=== PATIENT | female | born 1980 | race Caucasian/White ===

== ENCOUNTER 2022-04-22 14:37 | Inpatient (IN) ==
[~2022-04-22 14:37] MED LIST: DEXAMETHASONE 10 MG/ML VIAL ONE; HYDROmorphone 1 MG/ML SYRINGE ONE; KETAMINE 50 MG/ML Syringe (ANEST) IV ONE; LIDOCAINE HCL/PF 100 MG/5 ML SYRINGE IV ONE; MAGNESIUM SULFATE 2 GM/50 ML BAG IV ONE; ONDANSETRON 4 MG/2 ML VIAL ONE; PROPOFOL 200 MG/20 ML VIAL IV ONE; ROCURONIUM 10 MG/ML ML IV ONE; ROPIVACAINE HCL/PF 30 ML VIAL IJ ONE; SUGAMMADEX SODIUM 200 MG/2 ML VIAL IV ONE; ePHEDrine 50 MG/5 ML SYRINGE (ANEST) IV ONE; fentaNYL 100 MCG/2 ML VIAL IV ONE
[2022-04-22] MEDS ORDERED: IOPAMIDOL 100 ML BOTTLE IV ONE (14:38)
--- NOTE | 2022-04-22 14:49 | Emergency Department Note ---
HPI General Chief complaint: Abdominal Pain Stated complaint: Stomach Issues Time Seen by Provider: 04/22/22 14:47 Source: patient Mode of arrival: ambulatory Limitations: no limitations History of Present Illness HPI Narrative: Narrative: Patient is a 41-year-old female with a history significant for gastric outlet obstruction who presents to the emergency department because she states that she was told to last week by Dr. Mckay. She states that she has had months of nausea, vomiting, and abdominal pain. She states that she has nausea and vomiting with just about anything that she eats, and is not able to keep down a lot of the fluid that she tries to drink. She states that the abdominal pain is in the epigastric region and sometimes radiates to her back. She states that it is sharp in nature. She states that she saw Dr. Mckay last month, and that he had concerns at that time. She states that last week he called her and told her that she should come to the emergency department to be evaluated initially, and then for endoscopy. She endorses some lightheadedness. She denies any other symptoms at this time. Related Data Home Medications Medication Instructions Recorded Confirmed albuterol sulfate 90 mcg/actuation 1 inh inhalation ONCE PRN 05/17/20 04/22/22 aerosol inhaler Shortness Of Breath nicotine 21 mg/24 hr daily 1 patch transdermal Q24H 05/17/20 04/22/22 transdermal patch venlafaxine 150 mg 150 mg PO QPM 05/17/20 04/22/22 capsule,extended release 24 hr ondansetron 4 mg disintegrating 4 mg translingual PRN PRN Nausea 03/19/22 04/22/22 tablet pantoprazole 40 mg tablet,delayed 40 mg PO QAM 03/19/22 04/22/22 release (Protonix) pregabalin 100 mg capsule 300 mg PO QPM 03/19/22 04/22/22 buprenorphine 8 mg-naloxone 2 mg 1 film sublingual TID 04/22/22 04/22/22 sublingual film (Suboxone) Allergies Allergy/AdvReac Type Severity Reaction Status Date / Time azithromycin Allergy Severe Anaphylaxis Verified 04/22/22 14:43 Review of Systems ROS ROS Narrative: Narrative: Constitutional: Denies fever or weakness Eyes: Denies eye pain or vision change ENT ED: Denies throat pain or rhinorrhea Cardiovascular: Denies chest pain, dyspnea on exertion, orthopnea or edema Respiratory: Denies shortness of breath or cough Gastrointestinal: Reports abdominal pain, nausea and vomiting; Denies diarrhea, constipation, hematochezia or melena Musculoskeletal: Denies back pain or myalgia Integumentary: Denies rash or lesions Neurological: Denies headache, weakness, numbness, confusion, abnormal gait or dizziness Endocrine: Denies fatigue or polyuria PFS Narrative Patient History Narrative: Narrative: Medical/Surgical/Family History All Active Problems (Updated 04/25/22 @ 10:23 by Kingsley Farris MD) Nausea & vomiting (Acute) Abdominal pain (Acute) Constipation by delayed colonic transit (Acute) Gastrojejunal loop obstruction (Acute) Iron deficiency anemia (Chronic) Opioid dependence (Chronic) Severe protein-calorie malnutrition (Chronic) GERD (gastroesophageal reflux disease) (Chronic) Endometriosis (Chronic) Closed fracture of cervical spine (Chronic) Chronic post-traumatic stress disorder (PTSD) (Chronic) Pyloric obstruction (Chronic) Left upper quadrant pain (Chronic) Anterior chest wall pain (Chronic) Gastroparesis (Chronic) Arthritis (Chronic) Recurrent major depression (Chronic) Abdominal pain (Chronic) Gastric ulcer (Chronic) Medical History Abdominal pain Anterior chest wall pain Arthritis Chronic post-traumatic stress disorder (PTSD) Closed fracture of cervical spine Endometriosis Gastric ulcer With perforation Gastroparesis GERD (gastroesophageal reflux disease) Iron deficiency anemia Left upper quadrant pain Opioid dependence Pyloric obstruction Recurrent major depression Severe protein-calorie malnutrition Surgical History H/O esophagogastroduodenoscopy (10/30/14) History of (~04/13/00) 10/05/2005 History of esophagogastroduodenoscopy (EGD) (06/12/21) [facility], completely obstructing non-bleeding gastric ulcer, GI unable to advance endoscope past pyloric ulcer. EGD also done 05/29/21 History of exploratory laparotomy (06/13/21) [facility], [place], with bilateral truncal vagotomy, antrectomy and Desean-en-Y retrocolic gastrojejunostomy History of surgery Abdominal wall hernia procedure - multiple, most recent February 2021 History of surgery Closure of perforated gastric ulcer - x2, most recent 02/2021 perforated gastric ulcer with gastric outlet obstruction Family History Father Diabetes mellitus Heart disease Depressive disorder High blood pressure Anxiety disorder Myocardial infarction Mother Diabetes mellitus Heart disease Alcohol abuse Dementia Daughter ADHD (attention deficit hyperactivity disorder) Social History Smoking Status: Current every day smoker Alcohol Intake Frequency: does not drink Substance Use: does not use Exam Narrative Narrative: Narrative: General Limitations: no limitations General appearance: Present alert and in no apparent distress; Absent anxious, appears intoxicated or sleepy Head Head: Present atraumatic and normocephalic Eye Eye: Present EOMI; Absent scleral icterus or nystagmus ENT ENT: Present mucous membranes moist; Absent nasal congestion Neck Neck: Present full ROM; Absent tenderness Chest Chest: Present normal inspection and symmetric chest wall rise; Absent tenderness Respiratory Respiratory: Present normal lung sounds bilaterally; Absent respiratory distress or accessory muscle use Cardiovascular Cardiovascular: Present regular rate, normal rhythm and normal heart sounds Adbominal Abdominal: Present soft, tenderness, guarding and normal bowel sounds; Absent distention, rebound or rigidity Extremities Extremities: Present normal inspection and full ROM Back Back: Present normal inspection and full ROM; Absent tenderness, CVA tenderness (R) or CVA tenderness (L) Neurological Neurological: Present alert and oriented X3 Psychiatric Psychiatric: Present normal affect and normal mood Skin Skin: Present warm (WNL), dry and normal color Course Vital Signs Vital signs: Vital Signs Temperature 98.4 F 04/22/22 14:39 Pulse Rate 97 H 04/22/22 14:39 Respiratory Rate 18 04/22/22 14:39 Blood Pressure 104/75 04/22/22 14:39 Pulse Oximetry (%) 94 04/22/22 14:39 Oxygen Delivery Method Room Air 04/22/22 14:39 Temperature 98.8 F 04/25/22 07:47 Pulse Rate 75 04/25/22 07:47 Respiratory Rate 20 04/25/22 07:47 Blood Pressure 106/69 04/25/22 07:47 Pulse Oximetry (%) 95 04/25/22 08:00 Oxygen Delivery Method Nasal Cannula 04/25/22 08:00 Oxygen Flow Rate (L/min) 2.5 04/25/22 08:00 [facility] Narrative Medical decision making narrative: Narrative: Patient is a 41-year-old female with a history significant for gastric outlet obstruction who presents to the emergency department because she states that she was told to last week by Dr. Mckay. I did call Dr. Mcaky soon after patient's arrival. He stated that he would recommend just basic labs and a CT scan, and that he would admit the patient. He stated that he had been trying to get her to come to the emergency Department for some time, and that he had spoken about surgery that potentially needed to happen, but that she had been resistant to coming to the emergency department or to surgery previously. He stated that she had a surgery previously, and now that there was concern for obstruction in the area of gastric outlet. CT scan and labs are pending. We have spoken to the housekeeping laundry worker, and there is a room available for patient. Lab Data 04/22/22 15:29 Labs: Lab Results 04/22/22 04/22/22 Range/Units 15:29 15:29 WBC 8.0 (4.5-11.0) K/mcL RBC 5.19 (3.59-5.38) M/mcL Hgb 13.1 (11.2-15.7) g/dL Hct 41.4 (34.1-44.9) % MCV 79.8 L (80.0-100.0) fL MCH 25.2 L (26.0-34.0) pg MCHC 31.6 (31.0-36.0) g/dL RDW 17.9 H (11.5-14.5) % Plt Count 368 (140-440) K/mcL MPV 9.2 (8.8-12.5) fL Immature Gran % (Auto) 0.1 (0.0-0.5) % Neut % (Auto) 62.9 (38.0-78.0) % Lymph % (Auto) 29.0 (15.5-49.0) % [place] % (Auto) 6.0 (1.0-12.0) % Eos % (Auto) 1.4 (0.0-7.0) % Baso % (Auto) 0.6 (0.0-2.0) % Lymph # (Auto) 2.32 (1.50-4.80) K/mcL [place] # (Auto) 0.48 (0.10-0.90) K/mcL Eos # (Auto) 0.11 (0.00-0.70) K/mcL Baso # (Auto) 0.05 (0.00-0.30) K/mcL Immature Gran # 0.01 (0.00-0.05) K/mcl Absolute Neutrophils 5.02 (1.80-8.00) K/mcL Total Bilirubin < 0.2 (0.1-1.0) mg/dL Direct Bilirubin < 0.2 (0-0.3) mg/dL AST 16 (<32) U/L ALT 9 (<40) U/L Alkaline Phosphatase 130 H (39-117) U/L Total Protein 5.6 L (5.9-8.4) gm/dL Albumin 3.2 (3.2-5.2) gm/dL Globulin 2.4 (2.2-3.7) gm/dL Lipase 19 (7-60) U/L EKG Data EKG #1: EKG attestation: Yes I reviewed and interpreted this EKG. EKG results narrative: Normal sinus rhythm with a rate of 68, equivocal axis, [place] 127, QRS 108, QTc 426, T wave flattening in lead aVL, and absence of ST elevation or depression. Discharge Plan Patient/Caregiver Discharge Instructions Pt seen by HOSPITAL ACCOUNT LIAISON/PA only: No Clinical Impression: Nausea & vomiting, Abdominal pain Patient Disposition: Xfer As Inpt ([facility]) Discharge Date/Time: 04/22/22 18:25
[2022-04-22 16:08] LABS: Basophils # (Auto) 0.05 K/mcL (0.00-0.30); Basophils % (Auto) 0.6 % (0.0-2.0); Eosinophils # (Auto) 0.11 K/mcL (0.00-0.70); Eosinophils % (Auto) 1.4 % (0.0-7.0); Hematocrit 41.4 % (34.1-44.9); Hemoglobin 13.1 g/dL (11.2-15.7); Lymphocytes # (Auto) 2.32 K/mcL (1.50-4.80); Mean Cell Volume 79.8 fL (80.0-100.0); Mean Corpuscular HGB Conc 31.6 g/dL (31.0-36.0); Mean Platelet Volume 9.2 fL (8.8-12.5); Monocytes # (Auto) 0.48 K/mcL (0.10-0.90); Neutrophils % (Auto) 62.9 % (38.0-78.0); Platelet Count 368 K/mcL (140-440); RBC 5.19 M/mcL (3.59-5.38); Red Cell Distribution Width 17.9 % (11.5-14.5)
[2022-04-22] MEDS ORDERED: METOCLOPRAMIDE 10 MG/2 ML VIAL IV ONE (16:18)
[2022-04-22 16:31] LABS: ALT/SGPT 9 U/L (<40); AST/SGOT 16 U/L (<32); Albumin 3.2 gm/dL (3.2-5.2); Alkaline Phosphatase 130 U/L (39-117); Bilirubin,Direct < 0.2 mg/dL (0-0.3); Bilirubin,Total < 0.2 mg/dL (0.1-1.0); Globulin 2.4 gm/dL (2.2-3.7)
--- NOTE | 2022-04-22 17:31 | Cat Scan Report ---
CLINICAL INFORMATION: History of gastric outlet obstruction. Abdominal pain COMPARISON: Abdomen and pelvic CT 09/28/2014 and 05/12/2019 TECHNIQUE: Following enteric contrast, 80 cc of Isovue-370 were injected intravenously, and 60 seconds later, 0.625 mm helical slices were obtained from the mid heart through the subtrochanteric regions. Following reconstruction, 2.5 mm sagittal, coronal and axial reformatted images were processed and reviewed at bone, lung and soft tissue windows. Five minutes later, 0.625 mm helical slices were obtained from the mid heart through the kidneys and viewed at soft tissue windows.The exam was performed using radiation dose optimization techniques including, but not limited to, automated exposure control, adjustment of the mA and/or kV according to patient size and use of iterative reconstruction technique. FINDINGS: The lung bases show scattered bullae and fibrosis. No infiltrates or nodules.. No effusions. The visualized heart is grossly normal. Abdominal images show mild hepatomegaly with a vertical dimension of the liver 18 cm in midclavicular line. Diffuse fatty change seen within the liver which is also inhomogeneous. No focal hepatic lesions. Gallbladder is surgically absent. The left intrahepatic common hepatic and common bile ducts are moderately dilated CBD is 11 mm. There is abrupt tapering the ampullary region. There is also mild dilatation of pancreatic duct at 3 mm two the level ampulla. Findings suggestive of post cholecystomy papillary stenosis. Both kidneys, adrenal glands, spleen pancreatic parenchyma and aorta including aortic branches are normal in size configuration and attenuation without focal lesion. There is no free air or adenopathy. Pelvic images show urinary bladder is unremarkable. Anteflexed uterus is normal in size 7 x 3 cm. The region of the ovaries are normal. Since the 2019 CT, gastroenterostomy has been performed: A loop of jejunum is anastomosed to the proximal gastric body at the greater curvature with the distal anastomosis in the left upper quadrant. There are surgical clips at the anastomotic site. This segment of jejunum demonstrates moderate wall thickening suggesting inflammation. The stomach, small large bowel are symmetrically dilated with a large amount of colonic stool compatible ileus. Bone windows show nonunified old fractures the posterior right 10th and 11th ribs with mild displacement. IMPRESSION: 1. Gastro enteric bypass. The anastomosed jejunum demonstrates moderate wall thickening and mucosal thickening suggesting inflammation or ischemia. The stomach small and large bowel show symmetric dilatation compatible with moderate ileus. There is moderate colonic stool. No evidence of viv bowel obstruction however. 2. Mild hepatomegaly with inhomogeneous low attenuation suggesting diffuse hepatopathy please correlate with LFTs 3. Moderate dilatation of the common bile and pancreatic duct suggesting post cholecystectomy papillary stenosis no change. 4. COPD changes. 5. Displaced nonunified fractures of the posterior right 10th and 11th ribs ribs. Nondisplaced remote fracture of the right L1 transverse process Interpreted and Authenticated by: Temo Smalls 04/22/22
--- NOTE | 2022-04-22 17:34 | XRay Report ---
CLINICAL INFORMATION: Smoking history. Chest pain COMPARISON: None. TECHNIQUE: Portable FINDINGS: The heart size, mediastinum and pulmonary vessels are unremarkable. The lungs are clear. There are no effusions. Nonunified fracture of the lateral left 10th and 11th ribs appreciated. IMPRESSION: No acute disease. Old left rib fractures Interpreted and Authenticated by: Temo Smalls 04/22/22
--- NOTE | 2022-04-22 17:35 | General Surg History&Physical ---
HPI History of Present Illness Patient information: Note initiated : 04/22/22 at 5:27 pm Service Date, if different from initiated Date: [] Patient: Priscila Forrest a 41 y/o F admitted on for Stomach Issues. Chief Complaint: [] Chief complaint: Recurrent nausea and vomiting; gastric outlet obstruction History of present illness: Ms. Forrest is a 41 year old F with known history of gastric outlet obstruction secondary to chronic recurrent gastric ulcers dating back to 2014. Patient was seen in the office on 23 March 2022 with complaint of recurrent nausea vomiting and weight loss. She gave a history of having a perforated gastric ulcer in February 25. She was operated on at [facility] but did not improve. She was transferred to [facility] due to total pyloric obstruction. On 06/13/2021 patient underwent bilateral truncal vagotomy with antrectomy and Desean-en-Y retrocolic gastrojejunostomy. She states that she did well for about 5 to 6 months but then started having difficulty keeping food down. She had emesis multiple times per day. She lost over 40 pounds. Upper GI showed some filling of the jejunal loop but with minimal filling of the distal bowel as well as delay in emptying of the stomach into the jejunum and duodenum. As she was felt have obstruction of the jejunal loop. CT of the abdomen and pelvis showed a distended stomach filled with food particles. Madelyn santos was felt to need urgent evaluation but refused to be admitted when seen in March. She has not returned to the office since that time. I have called her 3 times to try to get her admitted. She finally decided that she was getting weaker because she could not eat. She is seen in the emergency room and is admitted with plans for upper endoscopy in the morning and probable laparotomy with revision of the gastrojejunal anastomosis on Wednesday. Patient has a history of chronic pain and is on long-term high-dose Suboxone. She has chronic constipation due to slow transit constipation from the Suboxone. She will receive Relistor starting tonight. Review of Systems All systems: reviewed and no additional remarkable complaints except as stated PFSH PFSH All Active Problems Constipation by delayed colonic transit (Acute) Gastrojejunal loop obstruction (Acute) Iron deficiency anemia (Chronic) Opioid dependence (Chronic) Severe protein-calorie malnutrition (Chronic) GERD (gastroesophageal reflux disease) (Chronic) Endometriosis (Chronic) Closed fracture of cervical spine (Chronic) Chronic post-traumatic stress disorder (PTSD) (Chronic) Pyloric obstruction (Chronic) Left upper quadrant pain (Chronic) Anterior chest wall pain (Chronic) Gastroparesis (Chronic) Arthritis (Chronic) Recurrent major depression (Chronic) Abdominal pain (Chronic) Gastric ulcer (Chronic) Medical History Abdominal pain Anterior chest wall pain Arthritis Chronic post-traumatic stress disorder (PTSD) Closed fracture of cervical spine Endometriosis Gastric ulcer With perforation Gastroparesis GERD (gastroesophageal reflux disease) Iron deficiency anemia Left upper quadrant pain Opioid dependence Pyloric obstruction Recurrent major depression Severe protein-calorie malnutrition Surgical History H/O esophagogastroduodenoscopy (10/30/14) History of (~04/13/00) 10/05/2005 History of esophagogastroduodenoscopy (EGD) (06/12/21) [facility], completely obstructing non-bleeding gastric ulcer, GI unable to advance endoscope past pyloric ulcer. EGD also done 05/29/21 History of exploratory laparotomy (06/13/21) Dr. Benson, [place], [place], with bilateral truncal vagotomy, antrectomy and Desean-en-Y retrocolic gastrojejunostomy History of surgery Abdominal wall hernia procedure - multiple, most recent February 2021 History of surgery Closure of perforated gastric ulcer - x2, most recent 02/2021 perforated ga stric ulcer with gastric outlet obstruction Family History Father Diabetes mellitus Heart disease Depressive disorder High blood pressure Anxiety disorder Myocardial infarction Mother Diabetes mellitus Heart disease Alcohol abuse Dementia Daughter ADHD (attention deficit hyperactivity disorder) Social History household members: alone marital status: single education level: college occupational status: employed sexually active: No smoking status: Current every day smoker alcohol intake frequency: does not drink substance use type: does not use dina/judaism: Hindu seatbelt use: always working smoke detector in home: Yes firearms in home: Yes MEDS/ALLERGIES Home Medications and Allergies Home Medications Medication Instructions Recorded Confirmed Type nortriptyline 10 mg capsule 10 mg PO HS 10/30/14 03/23/22 History Compounded Medication PO 05/17/20 03/23/22 History albuterol sulfate 90 mcg/actuation 1 inh inhalation ONCE 05/17/20 03/23/22 History aerosol inhaler dicyclomine 10 mg capsule 10 mg PO BID 05/17/20 03/23/22 History etonogestrel 0.12 mg-ethinyl 1 vag ring vaginal Q4W 05/17/20 03/23/22 History estradiol 0.015 mg/24 hr vaginal ring (EluRyng) furosemide 20 mg tablet 20 mg PO QDAY 05/17/20 03/23/22 History nicotine 21 mg/24 hr daily 1 patch transdermal Q24H 05/17/20 03/23/22 History transdermal patch venlafaxine 150 mg 150 mg PO QAM 05/17/20 03/23/22 History capsule,extended release 24 hr buprenorphine 8 mg-naloxone 2 mg 1 film buccal TID 03/19/22 03/23/22 History sublingual film (Suboxone) celecoxib 100 mg capsule See Rx Instructions PO QDAY 03/19/22 03/23/22 History diclofenac sodium 1 % topical gel 2 g topical QID 03/19/22 03/23/22 History (Arthritis Pain (diclofenac)) enoxaparin 40 mg/0.4 mL 40 mg subcut QDAY 03/19/22 03/23/22 History subcutaneous syringe (Lovenox) ipratropium 0.5 mg-albuterol 3 mg 3 ml inhalation Q6H PRN 03/19/22 03/23/22 History (2.5 mg base)/3 mL nebulization soln lidocaine 5 % topical patch 1 patch topical QDAY 03/19/22 03/23/22 History lorazepam 1 mg tablet 1 mg PO QDAY PRN 03/19/22 03/23/22 History methocarbamol 750 mg tablet 750 mg PO TID PRN 03/19/22 03/23/22 History naloxone 4 mg/actuation nasal spray 4 mg intranasal Q2M PRN 03/19/22 03/23/22 History ondansetron 4 mg disintegrating 4 mg PO Q8H PRN 03/19/22 03/23/22 History tablet pantoprazole 40 mg tablet,delayed 40 mg PO QDAY 03/19/22 03/23/22 History release (Protonix) pregabalin 100 mg capsule 100 mg PO TID 03/19/22 03/23/22 History tizanidine 4 mg tablet 4 mg PO TID PRN 03/19/22 03/23/22 History valacyclovir 1 gram tablet 1,000 mg PO TID 03/19/22 03/23/22 History Allergies Allergy/AdvReac Type Severity Reaction Status Date / Time azithromycin Allergy Severe Anaphylaxis Verified 04/22/22 14:43 Physical Examination Vital Signs Vital signs: Temp Pulse Resp BP Pulse Ox O2 Del Method 98.4 F 97 H 18 104/75 94 Room Air 04/22/22 14:39 04/22/22 14:39 04/22/22 14:39 04/22/22 14:39 04/22/22 14:39 04/22/22 14:39 General physical appearance General physical exam: no distress, no pain, cachectic and chronically ill Eyes Eye exam: PERRL and normal ocular movement ENT ENT exam: normal mucosa Head Head exam IM: Present atraumatic, normal inspection and normocephalic Neck Neck exam: no masses, no bruits, trachea midline, no lymphadenopathy and no venous distension Cardiovascular Cardiovascular exam IM: Present normal rate and rhythm, RRR, +S1 and +S2; Absent gallop or JVD Respiratory Respiratory exam: normal expansion, normal respiratory effort and clear to auscultation Abdomen Abdomen: Present soft, non tender, bowel sounds (Normal active bowel sounds) and distended (Mild gastric distention and left upper quadrant without mass) Hernia: Present incisional (Midline incisional hernia) Integumentary Integumentary: Present no rash, no growths and no abnormal pigmentation Neurologic Neurologic: Present normal coordination and normal sensation Musculoskeletal Musculoskeletal: Present normal gait and normal posture Psychiatric Psychiatric: Present oriented to time, oriented to person, oriented to place, speech is normal and memory intact Results Labs 04/22/22 15:29 Labs: Abnormal lab results 04/22/22 04/22/22 Range/Units 15:29 15:29 MCV 79.8 L (80.0-100.0) fL MCH 25.2 L (26.0-34.0) pg RDW 17.9 H (11.5-14.5) % Alkaline Phosphatase 130 H (39-117) U/L Total Protein 5.6 L (5.9-8.4) gm/dL Diabetes panel 04/22/22 Range/Units 15:29 AST 16 (<32) U/L ALT 9 (<40) U/L Alkaline Phosphatase 130 H (39-117) U/L Total Protein 5.6 L (5.9-8.4) gm/dL Albumin 3.2 (3.2-5.2) gm/dL Calcium panel 04/22/22 Range/Units 15:29 Albumin 3.2 (3.2-5.2) gm/dL Adrenal panel 04/22/22 Range/Units 15:29 Total Bilirubin < 0.2 (0.1-1.0) mg/dL AST 16 (<32) U/L ALT 9 (<40) U/L Alkaline Phosphatase 130 H (39-117) U/L Total Protein 5.6 L (5.9-8.4) gm/dL Albumin 3.2 (3.2-5.2) gm/dL All other labs normal. A/P Assessment and plan (1) Gastrojejunal loop obstruction: Status: Acute (2) Severe protein-calorie malnutrition: Status: Chronic (3) GERD (gastroesophageal reflux disease): Status: Chronic (4) Constipation by delayed colonic transit: Status: Acute (5) Opioid dependence: Status: Chronic (6) Chronic post-traumatic stress disorder (PTSD): Status: Chronic (7) Gastroparesis: Status: Chronic Plan Patient is counseled for upper endoscopy and it will be performed tomorrow. She is also counseled for laparotomy with revision of gastrojejunal anastomosis RelISTOR 12 mg subcu daily x4 days Continue Suboxone at previous doses Patient probably will need PICC line for TPN Time Spent With Patient Time: Total time spent is greater than 50% in coordination of care (as documented) at patient's floor/unit and/or counseling patient:
[2022-04-22] MEDS: HYDROmorphone 0.5 MG/0.5 ML SYRINGE IV PRN ×3 (17:54→23:53)
[2022-04-22] MEDS: METOCLOPRAMIDE 10 MG/2 ML VIAL IV SCH ×2 (18:39→23:55)
[2022-04-22] MEDS: 0.9 % SODIUM CHLORIDE 1,000 ML IV SCH (18:46)
[2022-04-22] MEDS: PANTOPRAZOLE 40 MG VIAL IV SCH (18:47)
[2022-04-22] MEDS: NORTRIPTYLINE 10 MG CAPSULE PO SCH (21:21)
[2022-04-22] MEDS: BUPRENORPHINE/NALOXONE 4MG/1MG ORAL FILM SL SCH (21:23)
[2022-04-22] MEDS: 0.9 % SODIUM CHLORIDE 10 ML SYRINGE IV SCH (21:23)
[2022-04-22] MEDS ORDERED: PREGABALIN 150 MG CAPSULE PO ONE (22:34)
[2022-04-22] MEDS: VENLAFAXINE 150 MG CAP.XL.24H PO SCH (22:36)
[2022-04-22] MEDS: PREGABALIN 150 MG CAPSULE PO SCH (22:36)
[2022-04-22] MEDS: NICOTINE 14 MG PATCH TOPICAL SCH (22:59)
[2022-04-23] MEDS: 0.9 % SODIUM CHLORIDE 1,000 ML IV SCH (02:53)
[2022-04-23] MEDS: HYDROmorphone 0.5 MG/0.5 ML SYRINGE IV PRN ×8 (02:57→22:22)
[2022-04-23] MEDS: 0.9 % SODIUM CHLORIDE 10 ML SYRINGE IV SCH ×3 (05:37→20:50)
[2022-04-23] MEDS: METOCLOPRAMIDE 10 MG/2 ML VIAL IV SCH ×4 (05:37→23:57)
[2022-04-23 06:57] LABS: Basophils # (Auto) 0.04 K/mcL (0.00-0.30); Basophils % (Auto) 0.6 % (0.0-2.0); Eosinophils # (Auto) 0.13 K/mcL (0.00-0.70); Hematocrit 36.1 % (34.1-44.9); Lymphocytes # (Auto) 3.07 K/mcL (1.50-4.80); Lymphocytes % (Auto) 47.9 % (15.5-49.0); Mean Corpuscular HGB Conc 30.5 g/dL (31.0-36.0); Mean Platelet Volume 9.1 fL (8.8-12.5); Monocytes # (Auto) 0.49 K/mcL (0.10-0.90); Monocytes % (Auto) 7.6 % (1.0-12.0); Neutrophils % (Auto) 41.6 % (38.0-78.0); Platelet Count 290 K/mcL (140-440); RBC 4.51 M/mcL (3.59-5.38); Red Cell Distribution Width 17.7 % (11.5-14.5); WBC 6.4 K/mcL (4.5-11.0)
[2022-04-23 07:21] LABS: ALT/SGPT 7 U/L (<40); AST/SGOT 13 U/L (<32); Albumin 2.3 gm/dL (3.2-5.2); Albumin/Globulin Ratio 1.1 (1.0-2.3); Alkaline Phosphatase 98 U/L (39-117); Bilirubin,Direct < 0.2 mg/dL (0-0.3); Bilirubin,Total < 0.2 mg/dL (0.1-1.0); Blood Urea Nitrogen 14 mg/dL (6-20); Calcium 7.4 mg/dL (8.6-10.4); Carbon Dioxide 27 mmol/L (22-30); Chloride 106 mmol/L (96-108); Glomerular Filtration Rate 119; Glucose 64 mg/dL (70-105); Lactate Dehydrogenase 190 U/L (135-225); Phosphorous 3.6 mg/dL (2.5-4.5); Triglycerides 61 mg/dL (<150); Uric Acid 2.9 mg/dL (2.5-8.0)
[2022-04-23] MEDS: PANTOPRAZOLE 40 MG VIAL IV SCH ×2 (07:47→16:51)
[2022-04-23] MEDS: DEXTROSE 5% IN WATER 1,000 ML IV SCH (08:26)
[2022-04-23] MEDS: METHYLNALTREXONE BROMIDE 12 MG/0.6 ML SYRINGE SQ SCH ×2 (08:35→12:09)
[2022-04-23] MEDS: BUPRENORPHINE/NALOXONE 4MG/1MG ORAL FILM SL SCH ×2 (08:35→20:50)
[2022-04-23] MEDS ORDERED: PROPOFOL 200 MG/20 ML VIAL IV ONE (11:23)
[2022-04-23] MEDS ORDERED: LIDOCAINE HCL/PF 100 MG/5 ML SYRINGE IV ONE (11:23)
--- NOTE | 2022-04-23 11:58 | Brief Operative Note ---
Brief Operative Note Date of procedure: 04/23/22 Pre-op diagnosis: RECURRENT NAUSEA AND VOMITING;GASTROJEJUNAL OBSTRUCTION Post-op diagnosis: other (GASTROJEJUNAL OBSTRUCTION) Procedure: UPPER ENDOSCOPY Grafts/Implants: No Anesthesia: MAC Findings: MILD GE REFLUX;INFLAMMATION OF JEJUNAL LIMB WITH DISTAL OBSTRUCTION Complications: none Surgeon: Marleny Mckay Estimated blood loss (cc): 0 Specimens Removed/Pathology: none sent Condition: stable Disposition: same day
[2022-04-23] MEDS: NICOTINE 14 MG PATCH TOPICAL SCH (12:25)
[2022-04-23] MEDS: LORazepam 2 MG/ML VIAL IV PRN ×2 (14:05→22:22)
[2022-04-23] MEDS: CEFEPIME 2 GM VIAL IV SCH ×2 (16:51→23:57)
[2022-04-23] MEDS: VENLAFAXINE 150 MG CAP.XL.24H PO SCH (20:49)
[2022-04-23] MEDS: PREGABALIN 150 MG CAPSULE PO SCH (20:49)
[2022-04-23] MEDS: NORTRIPTYLINE 10 MG CAPSULE PO SCH (20:50)
[2022-04-24] MEDS: HYDROmorphone 0.5 MG/0.5 ML SYRINGE IV PRN ×7 (00:29→15:59)
[2022-04-24] MEDS: METOCLOPRAMIDE 10 MG/2 ML VIAL IV SCH ×4 (05:27→23:26)
[2022-04-24] MEDS: 0.9 % SODIUM CHLORIDE 10 ML SYRINGE IV SCH ×3 (05:31→21:34)
[2022-04-24] MEDS: DEXTROSE 5% IN WATER 1,000 ML IV SCH (05:33)
[2022-04-24] MEDS: CEFEPIME 2 GM VIAL IV SCH ×3 (06:56→23:26)
[2022-04-24] MEDS: PANTOPRAZOLE 40 MG VIAL IV SCH ×2 (06:57→16:39)
[2022-04-24] MEDS: LORazepam 2 MG/ML VIAL IV PRN ×2 (06:57→18:46)
--- NOTE | 2022-04-24 07:33 | EKG ---
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
[2022-04-24] MEDS: BUPRENORPHINE/NALOXONE 4MG/1MG ORAL FILM SL SCH ×2 (08:18→21:19)
[2022-04-24] MEDS: METHYLNALTREXONE BROMIDE 12 MG/0.6 ML SYRINGE SQ SCH (08:42)
[2022-04-24] MEDS ORDERED: PROMETHAZINE 25 MG/ML VIAL IV PRN (13:08)
[2022-04-24] MEDS ORDERED: ONDANSETRON 4 MG/2 ML VIAL IV PRN (13:08)
[2022-04-24] MEDS ORDERED: NALOXONE HCL 0.4 MG/ML VIAL IV PRN (13:08)
[2022-04-24] MEDS ORDERED: METHOCARBAMOL 1,000 MG/10 ML VIAL IV PRN (13:08)
[2022-04-24] MEDS ORDERED: diphenhydrAMINE 50 MG/ML VIAL IV PRN (13:08)
[2022-04-24] MEDS ORDERED: MEPERIDINE 25 MG/ML VIAL IV PRN (13:08)
[2022-04-24] MEDS ORDERED: IPRATROPIUM/ALBUTEROL 3 ML AMPUL.NEB NEB PRN (13:08)
[2022-04-24] MEDS ORDERED: LACTATED RINGERS 250 ML IV PRN (13:08)
[2022-04-24] MEDS ORDERED: HYDROmorphone 0.5 MG/0.5 ML SYRINGE IV PRN (13:08)
[2022-04-24] MEDS ORDERED: fentaNYL 100 MCG/2 ML VIAL IV PRN (13:08)
[2022-04-24] MEDS ORDERED: ACETAMINOPHEN 700 MG/70 ML BAG IV ONE (13:08)
[2022-04-24] MEDS ORDERED: LACTATED RINGERS 1,000 ML IV SCH (13:15)
--- NOTE | 2022-04-24 13:29 | Brief Operative Note ---
Brief Operative Note Date of procedure: 04/24/22 Pre-op diagnosis: gastrojejunal obstruction Post-op diagnosis: other (GASTROJEJUNAL OBSTRUCTION ) Procedure: NAT -EN-Y GASTROJEJUNOSTOMY Grafts/Implants: No Anesthesia: GETA Findings: SEVERE INFLAMMATION AND THICKENING OF JEJUNAL SEGMENT Complications: none Surgeon: Marleny Mckay Estimated blood loss (cc): 50 Specimens Removed/Pathology: other (JEJUNAL SEGMENT) Condition: stable Disposition: PACU
[2022-04-24] MEDS: NICOTINE 14 MG PATCH TOPICAL SCH (15:15)
[2022-04-24] MEDS: HYDROmorphone 1 MG/ML SYRINGE IV PRN ×4 (17:35→23:26)
[2022-04-24] MEDS: NORTRIPTYLINE 10 MG CAPSULE PO SCH (21:19)
[2022-04-24] MEDS: VENLAFAXINE 150 MG CAP.XL.24H PO SCH (21:32)
[2022-04-24] MEDS: PREGABALIN 150 MG CAPSULE PO SCH (21:32)
[2022-04-25] MEDS: PROMETHAZINE 25 MG/ML VIAL IV PRN ×3 (01:41→13:45)
[2022-04-25] MEDS: HYDROmorphone 1 MG/ML SYRINGE IV PRN ×11 (01:41→23:29)
[2022-04-25] MEDS: LORazepam 2 MG/ML VIAL IV PRN ×4 (03:07→22:12)
[2022-04-25] MEDS: DEXTROSE 5% IN WATER 1,000 ML IV SCH ×2 (03:32→22:12)
[2022-04-25] MEDS: 0.9 % SODIUM CHLORIDE 10 ML SYRINGE IV SCH ×3 (04:30→22:13)
[2022-04-25 06:26] LABS: Basophils # (Auto) 0.04 K/mcL (0.00-0.30); Basophils % (Auto) 0.3 % (0.0-2.0); Eosinophils # (Auto) 0.28 K/mcL (0.00-0.70); Eosinophils % (Auto) 2.1 % (0.0-7.0); Hematocrit 40.3 % (34.1-44.9); Hemoglobin 12.5 g/dL (11.2-15.7); Lymphocytes # (Auto) 3.01 K/mcL (1.50-4.80); Lymphocytes % (Auto) 22.2 % (15.5-49.0); Mean Cell Volume 78.9 fL (80.0-100.0); Mean Platelet Volume 9.2 fL (8.8-12.5); Monocytes # (Auto) 0.67 K/mcL (0.10-0.90); Monocytes % (Auto) 4.9 % (1.0-12.0); Neutrophils % (Auto) 70.2 % (38.0-78.0); Platelet Count 316 K/mcL (140-440); RBC 5.11 M/mcL (3.59-5.38); Red Cell Distribution Width 17.7 % (11.5-14.5); WBC 13.5 K/mcL (4.5-11.0)
[2022-04-25] MEDS: METOCLOPRAMIDE 10 MG/2 ML VIAL IV SCH ×3 (06:43→17:22)
[2022-04-25 06:46] LABS: ALT/SGPT 10 U/L (<40); AST/SGOT 19 U/L (<32); Albumin 2.4 gm/dL (3.2-5.2); Albumin/Globulin Ratio 1.2 (1.0-2.3); Alkaline Phosphatase 104 U/L (39-117); Bilirubin,Direct < 0.2 mg/dL (0-0.3); Bilirubin,Total < 0.2 mg/dL (0.1-1.0); Blood Urea Nitrogen 8 mg/dL (6-20); Calcium 8.1 mg/dL (8.6-10.4); Carbon Dioxide 27 mmol/L (22-30); Chloride 102 mmol/L (96-108); Glomerular Filtration Rate 119; Glucose 93 mg/dL (70-105); Lactate Dehydrogenase 257 U/L (135-225); Triglycerides 109 mg/dL (<150); Uric Acid 3.1 mg/dL (2.5-8.0)
[2022-04-25] MEDS: PANTOPRAZOLE 40 MG VIAL IV SCH ×2 (07:40→17:22)
[2022-04-25] MEDS: BUPRENORPHINE/NALOXONE 4MG/1MG ORAL FILM SL SCH ×2 (08:22→22:13)
[2022-04-25] MEDS: CEFEPIME 2 GM VIAL IV SCH ×2 (08:26→15:51)
[2022-04-25] MEDS: METHYLNALTREXONE BROMIDE 12 MG/0.6 ML SYRINGE SQ SCH (09:35)
[2022-04-25] MEDS: NICOTINE 14 MG PATCH TOPICAL SCH (09:36)
--- NOTE | 2022-04-25 13:40 | General Surgery Progress Note ---
SUBJECTIVE Subjective Patient information: Note initiated : 04/25/22 at 1:35 pm Service Date, if different from initiated Date: [] Patient: Priscila Forrest a 41 y/o F admitted on 04/22/22 for Stomach Issues. Chief Complaint: [] Principal diagnosis: Gastric outlet obstruction Interval history: Patient is status post revision of gastrojejunostomy with placement of Desean-en-Y gastrojejunostomy. Her surgery progressed without problems. Patient is doing well except for mild pain. She has a chronic problem with chronic pain syndrome and multiple anxiety issues. White blood count 13.5, hemoglobin 12.5, hematocrit 40.3, potassium BUN and creatinine are normal. Oxygen saturation is 95%. Her urine is clear. Constitutional Vitals: Vital Signs Temp Pulse Resp BP Pulse Ox O2 Del Method O2 Flow Rate 98 F 80 18 109/65 98 Nasal Cannula 2 04/25/22 10:32 04/25/22 10:32 04/25/22 10:32 04/25/22 10:32 04/25/22 10:32 04/25/22 10:32 04/25/22 10:32 Period Temp Pulse Resp BP Sys/Cosme Pulse Ox O2 Del Method O2 Flow Rate Last 24 Hr 97.5 F-98.8 F 72-88 10-20 98-116/55-75 92-99 Nasal Cannula- Simple Mask 2-6 Intake and Output 04/25/22 04/25/22 04/25/22 03:59 11:59 19:59 Intake Total 1050 Output Total 1350 Balance -300 Weight 113 lb 8 oz Intake & Output: Intake & Output 04/25/22 04/25/22 04/25/22 03:59 11:59 19:59 Intake Total 1050 Output Total 1350 Balance -300 Weight 113 lb 8 oz Intake: IV 1000 Dextrose 5% in Water 1,000 ml @ 1000 50 mls/hr IV .Q20H [facility] Rx#: [id number] Oral 50 Output: Gastric Drainage 100 Right Nare NG/OG 100 Urine Catheter Amount 1250 Other: Urine Appearance Clear Uretheral (Marie) Clear Clear Clear Urine Color Yellow Uretheral (Marie) Yellow Yellow Yellow General appearance: mild distress and thin Head Head exam: Present atraumatic, normal inspection and normocephalic Eye Eye exam: Present EOMI and PERRL ENT ENT exam: Present mucous membranes moist and normal oropharynx Neck Neck exam: Present full ROM and normal inspection; Absent tenderness Respiratory Respiratory exam: Present normal respiratory exam; Absent CTAB Cardiovascular Cardiovascular exam: Present normal rate and rhythm, JVD, +S1, +S2 and tachycardia (Average heart rate 115); Absent RRR GI/Abdominal GI/Abdominal exam: Present normal bowel sounds, soft and tenderness (Moderate incisional tenderness) Extremities Exam Extremities exam: Present normal inspection and neurovascular intact Neurological Exam Neurological exam: Present oriented X3 and reflexes normal Psychiatric Psychiatric exam: Present agitated and anxious A/P Assessment and plan (1) Gastrojejunal loop obstruction: Status: Acute (2) Constipation by delayed colonic transit: Status: Acute (3) Nausea & vomiting: Status: Acute (4) Opioid dependence: Status: Chronic (5) Severe protein-calorie malnutrition: Status: Chronic (6) GERD (gastroesophageal reflux disease): Status: Chronic (7) Gastroparesis: Status: Chronic Plan Discontinue Marie catheter Encourage patient to be out of bed 2 view abdominal x-ray in the morning Sepsis Sepsis Identified: No Time Spent With Patient Time: Total time spent is greater than 50% in coordination of care (as documented) at patient's floor/unit and/or counseling patient:
[2022-04-25] MEDS: PREGABALIN 150 MG CAPSULE PO SCH (22:12)
[2022-04-25] MEDS: NORTRIPTYLINE 10 MG CAPSULE PO SCH (22:12)
[2022-04-25] MEDS: VENLAFAXINE 150 MG CAP.XL.24H PO SCH (22:12)
[2022-04-26] MEDS: CEFEPIME 2 GM VIAL IV SCH ×3 (00:40→16:50)
[2022-04-26] MEDS: METOCLOPRAMIDE 10 MG/2 ML VIAL IV SCH ×4 (00:40→17:37)
[2022-04-26] MEDS: HYDROmorphone 1 MG/ML SYRINGE IV PRN ×10 (01:47→21:26)
[2022-04-26] MEDS: LORazepam 2 MG/ML VIAL IV PRN ×4 (05:21→19:14)
[2022-04-26] MEDS: 0.9 % SODIUM CHLORIDE 10 ML SYRINGE IV SCH ×3 (05:22→21:38)
[2022-04-26 06:08] LABS: Basophils # (Auto) 0.04 K/mcL (0.00-0.30); Basophils % (Auto) 0.4 % (0.0-2.0); Eosinophils # (Auto) 0.43 K/mcL (0.00-0.70); Eosinophils % (Auto) 4.8 % (0.0-7.0); Hematocrit 37.4 % (34.1-44.9); Hemoglobin 11.8 g/dL (11.2-15.7); Lymphocytes # (Auto) 2.25 K/mcL (1.50-4.80); Lymphocytes % (Auto) 25.2 % (15.5-49.0); Mean Cell Volume 79.1 fL (80.0-100.0); Mean Corpuscular HGB Conc 31.6 g/dL (31.0-36.0); Mean Platelet Volume 9.3 fL (8.8-12.5); Monocytes # (Auto) 0.51 K/mcL (0.10-0.90); Monocytes % (Auto) 5.7 % (1.0-12.0); Neutrophils % (Auto) 63.7 % (38.0-78.0); Platelet Count 247 K/mcL (140-440); RBC 4.73 M/mcL (3.59-5.38); Red Cell Distribution Width 17.4 % (11.5-14.5); WBC 8.9 K/mcL (4.5-11.0)
[2022-04-26 06:28] LABS: ALT/SGPT 10 U/L (<40); AST/SGOT 15 U/L (<32); Albumin 2.3 gm/dL (3.2-5.2); Albumin/Globulin Ratio 1.1 (1.0-2.3); Alkaline Phosphatase 101 U/L (39-117); Bilirubin,Direct < 0.2 mg/dL (0-0.3); Bilirubin,Total 0.2 mg/dL (0.1-1.0); Blood Urea Nitrogen 11 mg/dL (6-20); Calcium 7.8 mg/dL (8.6-10.4); Carbon Dioxide 27 mmol/L (22-30); Chloride 104 mmol/L (96-108); Globulin 2.1 gm/dL (2.2-3.7); Glomerular Filtration Rate 112; Glucose 86 mg/dL (70-105); Lactate Dehydrogenase 330 U/L (135-225); Phosphorous 3.3 mg/dL (2.5-4.5); Triglycerides 136 mg/dL (<150); Uric Acid 3.8 mg/dL (2.5-8.0)
[2022-04-26] MEDS: PANTOPRAZOLE 40 MG VIAL IV SCH ×2 (07:29→17:37)
[2022-04-26] MEDS: PROMETHAZINE 25 MG/ML VIAL IV PRN (07:36)
[2022-04-26] MEDS: BUPRENORPHINE/NALOXONE 4MG/1MG ORAL FILM SL SCH ×2 (09:29→21:39)
[2022-04-26] MEDS: METHYLNALTREXONE BROMIDE 12 MG/0.6 ML SYRINGE SQ SCH ×2 (10:01→10:12)
[2022-04-26] MEDS: NICOTINE 14 MG PATCH TOPICAL SCH (10:12)
--- NOTE | 2022-04-26 14:15 | General Surgery Progress Note ---
SUBJECTIVE Subjective Patient information: Note initiated : 04/26/22 at 2:11 pm Service Date, if different from initiated Date: [] Patient: Priscila Forrest a 41 y/o F admitted on 04/22/22 for Stomach Issues. Chief Complaint: [] Principal diagnosis: Gastric outlet obstruction Interval history: Patient is doing well except complains of pain so far. She denies nausea. She states that she had flatus. White blood count 8.9, hemoglobin 11.8, hematocrit 37 point, LFTs are normal. Abdominal x-rays shows gas in the mid small bowel with no colon distention or gastric distention Constitutional Vitals: Vital Signs Temp Pulse Resp BP Pulse Ox O2 Del Method O2 Flow Rate 97.9 F 85 16 107/77 94 Room Air 2 04/26/22 11:49 04/26/22 03:51 04/26/22 11:49 04/26/22 11:49 04/26/22 11:49 04/26/22 11:49 04/26/22 08:00 Period Temp Pulse Resp BP Sys/Cosme Pulse Ox O2 Del Method O2 Flow Rate Last 24 Hr 97.5 F-99.5 F 82-90 14-20 92-108/61-77 91-96 Nasal Cannula- Room Air 2-2 Intake and Output 04/26/22 04/26/22 04/26/22 03:59 11:59 19:59 Intake Total 50 1000 Output Total 2700 1 Balance -2650 999 Weight 102 lb 14.4 oz Intake & Output: Intake & Output 04/26/22 04/26/22 04/26/22 03:59 11:59 19:59 Intake Total 50 1000 Output Total 2700 1 Balance -2650 999 Weight 102 lb 14.4 oz Intake: IV 1000 Lactated Ringers 1,000 ml @ 20 1000 mls/hr IV .Q24H [facility] Rx#: [id number] Oral 50 Output: Gastric Drainage 400 Right Nare NG/OG 400 Urine Catheter Amount 2300 Uretheral (Marie) 600 # of times incontinent of urine 1 Other: Urine Appearance Clear Clear Uretheral (Marie) Clear Clear Urine Color Yellow Yellow Uretheral (Marie) Yellow Urine Odor Normal # Voids 1 Head Head exam: Present atraumatic, normal inspection and normocephalic Eye Eye exam: Present PERRL Pupils: Present normal accommodation ENT ENT exam: Present mucous membranes moist and normal oropharynx Neck Neck exam: Present full ROM and normal inspection Respiratory Respiratory exam: Present normal respiratory exam and CTAB Cardiovascular Cardiovascular exam: Present normal rate and rhythm, RRR, +S1 and +S2; Absent JVD GI/Abdominal GI/Abdominal exam: Present soft and diminished bowel sounds; Absent distended Additional comments: Incision looks good Extremities Exam Extremities exam: Present normal inspection and neurovascular intact Neurological Exam Neurological exam: Present oriented X3; Absent motor sensory deficit Psychiatric Psychiatric exam: Present anxious A/P Assessment and plan (1) Gastrojejunal loop obstruction: Status: Acute (2) Constipation by delayed colonic transit: Status: Acute (3) Severe protein-calorie malnutrition: Status: Chronic (4) GERD (gastroesophageal reflux disease): Status: Chronic Plan Clamp nasogastric tube Continue n.p.o. except for ice chips Abdominal x-rays in the a.m. Time Spent With Patient Time: Total time spent is greater than 50% in coordination of care (as documented) at patient's floor/unit and/or counseling patient:
--- NOTE | 2022-04-26 14:19 | XRay Report ---
CLINICAL INFORMATION: Abdominal pain. NG tube placement COMPARISON: None. FINDINGS: NG tip overlies the gastric antrum. The stool gas pattern is nonspecific. It is largely gasless with the exception of loop of sigmoid colon which is normal in caliber. Small amount of free air as developed in the left subdiaphragmatic region. IMPRESSION: Mild free air in the right subdiaphragmatic region suggests GI tract perforation. Interpreted and Authenticated by: Temo Smalls 04/26/22
[2022-04-26] MEDS ORDERED: BENZOCAINE 20% 1 SPRAY EACH TOPICAL ONE (15:35)
[2022-04-26] MEDS: DEXTROSE 5% IN WATER 1,000 ML IV SCH (16:51)
[2022-04-26] MEDS: ONDANSETRON 4 MG/2 ML VIAL IV PRN (17:43)
[2022-04-26] MEDS: PREGABALIN 150 MG CAPSULE PO SCH (21:34)
[2022-04-26] MEDS: VENLAFAXINE 150 MG CAP.XL.24H PO SCH (21:34)
[2022-04-26] MEDS: NORTRIPTYLINE 10 MG CAPSULE PO SCH (21:39)
[2022-04-27] MEDS: LORazepam 2 MG/ML VIAL IV PRN ×5 (00:01→21:02)
[2022-04-27] MEDS: METOCLOPRAMIDE 10 MG/2 ML VIAL IV SCH ×5 (00:02→23:08)
[2022-04-27] MEDS: 0.9 % SODIUM CHLORIDE 10 ML SYRINGE IV SCH ×3 (06:13→21:13)
[2022-04-27 07:21] LABS: Basophils # (Auto) 0.03 K/mcL (0.00-0.30); Basophils % (Auto) 0.4 % (0.0-2.0); Eosinophils # (Auto) 0.52 K/mcL (0.00-0.70); Eosinophils % (Auto) 6.6 % (0.0-7.0); Hematocrit 38.6 % (34.1-44.9); Hemoglobin 11.7 g/dL (11.2-15.7); Lymphocytes # (Auto) 1.22 K/mcL (1.50-4.80); Lymphocytes % (Auto) 15.5 % (15.5-49.0); Mean Cell Volume 79.6 fL (80.0-100.0); Mean Corpuscular HGB Conc 30.3 g/dL (31.0-36.0); Mean Platelet Volume 9.4 fL (8.8-12.5); Monocytes # (Auto) 0.47 K/mcL (0.10-0.90); Neutrophils % (Auto) 71.1 % (38.0-78.0); Platelet Count 220 K/mcL (140-440); RBC 4.85 M/mcL (3.59-5.38); Red Cell Distribution Width 17.7 % (11.5-14.5); WBC 7.9 K/mcL (4.5-11.0)
[2022-04-27] MEDS: CEFEPIME 2 GM VIAL IV SCH ×4 (07:35→23:08)
[2022-04-27] MEDS: PANTOPRAZOLE 40 MG VIAL IV SCH ×2 (07:35→16:35)
[2022-04-27] MEDS: HYDROmorphone 1 MG/ML SYRINGE IV PRN ×9 (07:36→23:08)
--- NOTE | 2022-04-27 08:25 | XRay Report ---
HISTORY: Follow-up free intra-abdominal air after a recent gastrojejunostomy FINDINGS: The free intra-abdominal air seen beneath the right diaphragm has nearly completely resolved since 04/26/22. There is nasogastric tube in the stomach. The stomach contains some air and fluid and is not abnormally distended. There is a row of anastomotic sutures around the stomach. There are also anastomotic sutures in the left mid abdomen at the site of the gastrojejunostomy. Small bowel is nondilated. There is a small amount of air within both large and small intestine. There is no evidence of ileus or obstruction. Again noted are several rib fractures in the left mid and lower thorax. These were seen on prior CT and x-rays. IMPRESSION: Resolving free intra-abdominal air. No evidence of bowel obstruction or ileus Interpreted and Authenticated by: Pato Hinson 04/27/22
[2022-04-27] MEDS: BUPRENORPHINE/NALOXONE 4MG/1MG ORAL FILM SL SCH ×2 (08:40→21:13)
[2022-04-27 08:55] LABS: ALT/SGPT 7 U/L (<40); AST/SGOT 13 U/L (<32); Albumin 2.3 gm/dL (3.2-5.2); Alkaline Phosphatase 103 U/L (39-117); Bilirubin,Direct < 0.2 mg/dL (0-0.3); Bilirubin,Total 0.2 mg/dL (0.1-1.0); Blood Urea Nitrogen 12 mg/dL (6-20); Calcium 8.1 mg/dL (8.6-10.4); Carbon Dioxide 25 mmol/L (22-30); Chloride 102 mmol/L (96-108); Globulin 2.3 gm/dL (2.2-3.7); Glomerular Filtration Rate 119; Glucose 72 mg/dL (70-105); Lactate Dehydrogenase 262 U/L (135-225); Phosphorous 3.6 mg/dL (2.5-4.5); Triglycerides 152 mg/dL (<150); Uric Acid 4.3 mg/dL (2.5-8.0)
[2022-04-27] MEDS: NICOTINE 14 MG PATCH TOPICAL SCH (09:41)
[2022-04-27] MEDS: DEXTROSE 5% IN WATER 1,000 ML IV SCH (12:37)
--- NOTE | 2022-04-27 13:43 | General Surgery Progress Note ---
SUBJECTIVE Subjective Patient information: Note initiated : 04/27/22 at 1:36 pm Service Date, if different from initiated Date: [] Patient: Priscila Forrest a 41 y/o F admitted on 04/22/22 for Stomach Issues. Chief Complaint: [] Principal diagnosis: Gastric outlet obstruction Interval history: Patient states that she feels well. She had discontinuation of her nasogastric tube and has tolerated clear liquids. She complains of severe thirst and has an estimated 800 cc of p.o. intake so far. She is advised not to increase her intake so rapidly because of fear of nausea or vomiting. I will increase her volume tomorrow with clear liquids before advancing to full liquids. The plan is to advance her diet slowly. She can have intake of water, popsicles and ice. Abdominal x-rays shows decrease in free air and no major dilation of stomach small bowel or colon. White blood count 7.9, hemoglobin 11.7, hematocrit 38.6. Constitutional Vitals: Vital Signs Temp Pulse Resp BP Pulse Ox O2 Del Method O2 Flow Rate 98.4 F 97 H 16 103/65 95 Room Air 2 04/27/22 12:03 04/27/22 12:03 04/27/22 12:03 04/27/22 12:03 04/27/22 12:03 04/27/22 12:03 04/26/22 08:00 Period Temp Pulse Resp BP Sys/Cosme Pulse Ox O2 Del Method O2 Flow Rate Last 24 Hr 97.5 F-98.6 F 84-97 16-20 103-118/65-90 91-96 Room Air-Room Air Intake and Output 04/27/22 04/27/22 04/27/22 03:59 11:59 19:59 Intake Total 290 1828 Output Total 600 Balance -814 407 1151 Intake & Output: Intake & Output 04/27/22 04/27/22 04/27/22 03:59 11:59 19:59 Intake Total 290 1828 Output Total 600 Balance -384 685 6355 Intake: IV 988 Dextrose 5% in Water 1,000 ml @ 988 50 mls/hr IV .Q20H [facility] Rx#: [id number] Oral 290 840 Tube Feeding 0 Output: Void Amount 600 Other: Meal jello, broth, soda Percent of Meal Consumed 100% Feeding Ability Assist with Tray Set Up Urine Appearance Clear Urine Color Yellow Urine Odor Normal # Voids 1 Neck Neck exam: Present normal inspection Respiratory Respiratory exam: Present normal respiratory exam and CTAB Cardiovascular Cardiovascular exam: Present normal rate and rhythm, RRR, +S1 and +S2 GI/Abdominal GI/Abdominal exam: Present normal bowel sounds and soft; Absent distended or tenderness Additional comments: Incision looks good Extremities Exam Extremities exam: Present normal inspection and neurovascular intact Back Exam Back exam: Present normal inspection Neurological Exam Neurological exam: Present oriented X3; Absent motor sensory deficit Psychiatric Psychiatric exam: Present anxious A/P Assessment and plan (1) Gastrojejunal loop obstruction: Status: Acute (2) Iron deficiency anemia: Status: Chronic (3) GERD (gastroesophageal reflux disease): Status: Chronic Plan KCl rider x2 Advance diet slowly Continue to monitor abdominal x-rays Time Spent With Patient Time: Total time spent is greater than 50% in coordination of care (as documented) at patient's floor/unit and/or counseling patient:
[2022-04-27] MEDS: VENLAFAXINE 150 MG CAP.XL.24H PO SCH (21:02)
[2022-04-27] MEDS: PREGABALIN 150 MG CAPSULE PO SCH (21:02)
[2022-04-27] MEDS: NORTRIPTYLINE 10 MG CAPSULE PO SCH (21:13)
[2022-04-28] MEDS: HYDROmorphone 1 MG/ML SYRINGE IV PRN ×11 (01:10→22:44)
[2022-04-28] MEDS: LORazepam 2 MG/ML VIAL IV PRN ×6 (01:15→22:44)
[2022-04-28] MEDS: 0.9 % SODIUM CHLORIDE 10 ML SYRINGE IV SCH ×3 (04:22→20:34)
[2022-04-28] MEDS: METOCLOPRAMIDE 10 MG/2 ML VIAL IV SCH ×2 (05:16→11:30)
[2022-04-28 07:19] LABS: Basophils # (Auto) 0.04 K/mcL (0.00-0.30); Basophils % (Auto) 0.5 % (0.0-2.0); Eosinophils % (Auto) 6.6 % (0.0-7.0); Hematocrit 37.6 % (34.1-44.9); Hemoglobin 11.4 g/dL (11.2-15.7); Lymphocytes # (Auto) 1.81 K/mcL (1.50-4.80); Mean Cell Volume 82.1 fL (80.0-100.0); Mean Corpuscular HGB Conc 30.3 g/dL (31.0-36.0); Mean Platelet Volume 9.4 fL (8.8-12.5); Monocytes # (Auto) 0.43 K/mcL (0.10-0.90); Monocytes % (Auto) 5.7 % (1.0-12.0); Neutrophils % (Auto) 62.8 % (38.0-78.0); Platelet Count 191 K/mcL (140-440); RBC 4.58 M/mcL (3.59-5.38); Red Cell Distribution Width 17.9 % (11.5-14.5); WBC 7.5 K/mcL (4.5-11.0)
[2022-04-28] MEDS: PANTOPRAZOLE 40 MG VIAL IV SCH ×2 (07:23→16:02)
[2022-04-28 07:57] LABS: ALT/SGPT 8 U/L (<40); AST/SGOT 16 U/L (<32); Albumin 2.1 gm/dL (3.2-5.2); Alkaline Phosphatase 98 U/L (39-117); Bilirubin,Direct < 0.2 mg/dL (0-0.3); Bilirubin,Total < 0.2 mg/dL (0.1-1.0); Blood Urea Nitrogen 6 mg/dL (6-20); Calcium 7.5 mg/dL (8.6-10.4); Carbon Dioxide 23 mmol/L (22-30); Chloride 106 mmol/L (96-108); Globulin 2.1 gm/dL (2.2-3.7); Glomerular Filtration Rate 128; Glucose 67 mg/dL (70-105); Lactate Dehydrogenase 256 U/L (135-225); Phosphorous 2.8 mg/dL (2.5-4.5); Triglycerides 151 mg/dL (<150); Uric Acid 4.1 mg/dL (2.5-8.0)
[2022-04-28] MEDS: BUPRENORPHINE/NALOXONE 4MG/1MG ORAL FILM SL SCH ×2 (08:36→20:47)
[2022-04-28] MEDS: DEXTROSE 5% IN WATER 1,000 ML IV SCH (09:16)
[2022-04-28] MEDS: CEFEPIME 2 GM VIAL IV SCH ×2 (09:16→16:02)
[2022-04-28] MEDS: NICOTINE 14 MG PATCH TOPICAL SCH (09:22)
--- NOTE | 2022-04-28 10:47 | XRay Report ---
HISTORY: Postop gastrojejunostomy FINDINGS: Trace amount of free intra-abdominal air is again seen beneath both diaphragms. This continues to gradually improve. There is a focally dilated loop of small bowel beneath the diaphragm in the left upper quadrant. Measures 4.8 cm in diameter. It contains air-fluid levels. There is an air-filled segment of nondilated transverse colon in the mid abdomen. The stomach is decompressed. Previously seen NG tube has been removed. 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 There is a vertically oriented band of atelectasis in the medial basal segment of the left lower lobe. This is new since 04/27/22. IMPRESSION: Focal ileus in the left upper quadrant Gradually resolving free intra-abdominal air Interpreted and Authenticated by: Pato Hinson 04/28/22
--- NOTE | 2022-04-28 16:15 | General Surgery Progress Note ---
SUBJECTIVE Subjective Patient information: Note initiated : 04/28/22 at 4:11 pm Service Date, if different from initiated Date: [] Patient: Priscila Forrest a 41 y/o F admitted on 04/22/22 for Stomach Issues. Chief Complaint: [] Principal diagnosis: Gastric outlet obstruction Interval history: Patient continues to do well. She has tolerated clear liquids and has had 2 pills of full liquids without difficulty. She is having some early short breath symptoms with bowel movements occurring about 30 minutes after meals. She denies having any nausea. She has had multiple bowel movements today. She has mild abdominal distention but has good bowel sounds. Abdominal x-ray shows loop of dilated small bowel in the left upper quadrant which is probably proximal jejunum. There is another loop of bowel abdomen which appears to be distal to the Desean-en-Y limb. Constitutional Vitals: Vital Signs Temp Pulse Resp BP Pulse Ox O2 Del Method O2 Flow Rate 98.8 F 89 14 119/73 95 Room Air 2 04/28/22 11:33 04/28/22 11:33 04/28/22 11:33 04/28/22 11:33 04/28/22 11:33 04/28/22 11:33 04/26/22 08:00 Period Temp Pulse Resp BP Sys/Cosme Pulse Ox O2 Del Method O2 Flow Rate Last 24 Hr 98.1 F-98.8 F 82-95 14-18 108-121/67-81 92-99 Room Air-Room Air Intake and Output 04/28/22 04/28/22 04/28/22 03:59 11:59 19:59 Intake Total 480 240 Balance 480 240 Weight 105 lb 3.2 oz Patient Weight 04/29/22 03:59 Weight 105 lb 3.2 oz Intake & Output: Intake & Output 04/28/22 04/28/22 04/28/22 03:59 11:59 19:59 Intake Total 480 240 Balance 480 240 Weight 105 lb 3.2 oz Intake: Oral 480 240 Other: Meal Lunch Percent of Meal Consumed 75% Feeding Ability Independent # Voids 1 1 Respiratory Respiratory exam: Present CTAB Cardiovascular Cardiovascular exam: Present normal rate and rhythm, RRR, +S1 and +S2; Absent JVD GI/Abdominal GI/Abdominal exam: Present normal bowel sounds and distended; Absent tenderness Extremities Exam Extremities exam: Present normal inspection and neurovascular intact Neurological Exam Neurological exam: Present motor sensory deficit and oriented X3 Psychiatric Psychiatric exam: Present normal affect and normal mood A/P Assessment and plan (1) Gastrojejunal loop obstruction: Status: Acute (2) Constipation by delayed colonic transit: Status: Acute (3) Severe protein-calorie malnutrition: Status: Chronic Plan K rider 40 mEq x 2 Magnesium rider 4 g x 2 Saline lock IV Discontinue metoclopramide Check abdominal series tomorrow morning Sepsis Sepsis Identified: No Time Spent With Patient Time: Total time spent is greater than 50% in coordination of care (as documented) at patient's floor/unit and/or counseling patient:
[2022-04-28] MEDS ORDERED: POTASSIUM CHLORIDE 40 MEQ in DEXTROSE 5% IN WATER 250 ML IV SCH (17:00)
[2022-04-28] MEDS: MAGNESIUM SULFATE 4 GM/100 ML BAG IV SCH ×2 (17:22→22:14)
[2022-04-28] MEDS: POTASSIUM CHLORIDE 40 MEQ in DEXTROSE 5% IN WATER 500 ML IV SCH ×2 (17:22→22:14)
[2022-04-28] MEDS: ONDANSETRON 4 MG/2 ML VIAL IV PRN (18:48)
[2022-04-28] MEDS: VENLAFAXINE 150 MG CAP.XL.24H PO SCH (20:41)
[2022-04-28] MEDS: PREGABALIN 150 MG CAPSULE PO SCH (20:46)
[2022-04-28] MEDS: NORTRIPTYLINE 10 MG CAPSULE PO SCH (23:20)
[2022-04-29] MEDS: CEFEPIME 2 GM VIAL IV SCH ×3 (00:41→16:19)
[2022-04-29] MEDS: HYDROmorphone 1 MG/ML SYRINGE IV PRN ×6 (00:41→21:49)
[2022-04-29] MEDS: LORazepam 2 MG/ML VIAL IV PRN ×5 (02:42→21:50)
[2022-04-29] MEDS: DEXTROSE 5% IN WATER 1,000 ML IV SCH (03:27)
[2022-04-29] MEDS: 0.9 % SODIUM CHLORIDE 10 ML SYRINGE IV SCH ×3 (05:12→20:27)
[2022-04-29] MEDS: PANTOPRAZOLE 40 MG VIAL IV SCH ×2 (07:16→16:19)
[2022-04-29 07:49] LABS: ALT/SGPT 11 U/L (<40); AST/SGOT 22 U/L (<32); Albumin 2.6 gm/dL (3.2-5.2); Albumin/Globulin Ratio 1.1 (1.0-2.3); Alkaline Phosphatase 111 U/L (39-117); Bilirubin,Direct < 0.2 mg/dL (0-0.3); Bilirubin,Total < 0.2 mg/dL (0.1-1.0); Blood Urea Nitrogen 4 mg/dL (6-20); Calcium 7.2 mg/dL (8.6-10.4); Carbon Dioxide 19 mmol/L (22-30); Chloride 104 mmol/L (96-108); Globulin 2.4 gm/dL (2.2-3.7); Glomerular Filtration Rate 128; Glucose 77 mg/dL (70-105); Lactate Dehydrogenase 290 U/L (135-225); Phosphorous 2.1 mg/dL (2.5-4.5); Triglycerides 103 mg/dL (<150); Uric Acid 3.7 mg/dL (2.5-8.0)
--- NOTE | 2022-04-29 08:27 | XRay Report ---
HISTORY: Postoperative ileus FINDINGS: There is a very small crescent of free intra-abdominal air beneath the left diaphragm. The free air beneath the right diaphragm has now resolved. The loop of dilated small intestine in the left upper quadrant has diminished in caliber since yesterday. Bowel pattern is otherwise normal. There are several rows of surgical sutures in the left left side of the abdomen, extending from the epigastrium to the mid pelvis. There are surgical skin sammy in the midline. Incidentally noted are several old ununited rib fractures in the lower thorax bilaterally. IMPRESSION: Near complete resolution of the postoperative ileus and free intra-abdominal air Interpreted and Authenticated by: Pato Hinson 04/29/22
[2022-04-29] MEDS: oxyCODONE/APAP 10/325MG TABLET PO PRN ×4 (08:34→20:28)
[2022-04-29] MEDS: NICOTINE 14 MG PATCH TOPICAL SCH (10:25)
[2022-04-29] MEDS: BUPRENORPHINE/NALOXONE 4MG/1MG ORAL FILM SL SCH ×2 (10:30→20:27)
--- NOTE | 2022-04-29 14:17 | General Surgery Progress Note ---
SUBJECTIVE Subjective Patient information: Note initiated : 04/29/22 at 2:15 pm Service Date, if different from initiated Date: [] Patient: Priscila Forrest 41 y/o F admitted on 04/22/22 for Stomach Issues. Chief Complaint: [] Principal diagnosis: Gastric outlet obstruction Interval history: Patient is doing well. She tolerated a soft diet last evening. Abdominal x- rays continue to be stable. She has low potassium and phosphorus so this will be replaced. Small bowel follow-through will be done to assure stability of the anastomosis Constitutional Vitals: Vital Signs Temp Pulse Resp BP Pulse Ox O2 Del Method O2 Flow Rate 97.7 F 76 20 108/72 100 Room Air 2 04/29/22 12:00 04/29/22 12:00 04/29/22 12:00 04/29/22 12:00 04/29/22 12:00 04/29/22 12:00 04/26/22 08:00 Period Temp Pulse Resp BP Sys/Cosme Pulse Ox O2 Del Method O2 Flow Rate Last 24 Hr 97.7 F-98.7 F 76-93 16-22 103-118/67-75 96-100 Room Air-Room Air Intake and Output 04/29/22 04/29/22 04/29/22 03:59 11:59 19:59 Intake Total 1640 900 Balance 1640 900 Weight 100 lb 12.8 oz Intake & Output: Intake & Output 04/29/22 04/29/22 04/29/22 03:59 11:59 19:59 Intake Total 1640 900 Balance 1640 900 Weight 100 lb 12.8 oz Intake: IV 1240 Potassium Chloride 40 Meq In 1040 Dextrose 5% in Water 500 ml @ 130 mls/hr IV 1700,2100 [facility] Rx# :[id number] Oral 400 900 Other: Meal Breakfast Percent of Meal Consumed 100% Feeding Ability Assist with Tray Set Up Stool Size Small Stool Color Brown Stool Consistency Loose # Voids 1 1 Neck Neck exam: Present normal inspection Respiratory Respiratory exam: Present normal respiratory exam and CTAB Cardiovascular Cardiovascular exam: Present normal rate and rhythm, RRR, +S1 and +S2; Absent systolic murmur GI/Abdominal GI/Abdominal exam: Present normal bowel sounds and soft; Absent distended, mass or tenderness Extremities Exam Extremities exam: Present normal inspection and neurovascular intact Neurological Exam Neurological exam: Present oriented X3; Absent motor sensory deficit Psychiatric Psychiatric exam: Present anxious A/P Assessment and plan (1) Constipation by delayed colonic transit: Status: Acute (2) Gastrojejunal loop obstruction: Status: Acute (3) Iron deficiency anemia: Status: Chronic (4) Opioid dependence: Status: Chronic (5) Severe protein-calorie malnutrition: Status: Chronic (6) GERD (gastroesophageal reflux disease): Status: Chronic Plan Potassium phosphate rider x2 Small bowel follow-through today Probable discharge in the morning Time Spent With Patient Time: Total time spent is greater than 50% in coordination of care (as documented) at patient's floor/unit and/or counseling patient:
[2022-04-29] MEDS: POTASSIUM PHOSPHATE 40 MEQ in DEXTROSE 5% IN WATER 500 ML IV SCH (15:31)
--- NOTE | 2022-04-29 16:39 | Operative Note ---
DATE OF OPERATION: 04/24/2022 PREOPERATIVE DIAGNOSIS: Gastrojejunal obstruction. POSTOPERATIVE DIAGNOSIS: Gastrojejunal obstruction. PROCEDURE: Resection of gastrojejunal anastomosis with formation of Desean-en-Y gastrojejunostomy. SURGEON: Marleny Mckay M.D. FINDINGS: Severe inflammation and thickening of the jejunal segment. DESCRIPTION OF PROCEDURE: Under general anesthesia, the patient's abdomen was prepped and draped in a sterile field. Timeout procedure was carried out as per protocol. Upper midline incision was made. There was a moderate amount of inflammatory adhesions, which were taken down sharply with Metzenbaum scissors. The peritoneal cavity had a paucity of omentum and mesenteric fat. The gastric remnant was identified and at the base of the gastric remnant the gastrojejunal anastomosis was encountered. It was severely inflamed and thickened. It appeared to extend to a Desean-Y limb. However, the Desean-Y limb was very proximal to the gastrojejunal anastomosis. The inflamed fibrotic jejunal segment was excised. The distal jejunum was then anastomosed to the base of the gastric remnant using a handsewn anastomosis. This was performed [id number] with inner row of running locking 2-0 Monocryl and an outer row of running 2-0 Prolene. The proximal jejunum was then sutured distally [id number] to the distal jejunum using ROSITA stapler and then closed with a TA 30 stapler. The mesenteric defect was closed with interrupted silk. The patient tolerated the procedure well. Both anastomoses were checked and were widely patent. Nasogastric tube was positioned in the stomach. Sponge, needle, instrument, and blade counts were verified as correct. The fascia and peritoneum were closed with running #1 Prolene. There was no subcutaneous tissue to close. Skin was closed with sammy. The patient tolerated the procedure well. Tegaderm dressings were placed. She was awakened, transferred to a bed, and taken to the postanesthetic care unit in satisfactory condition. LCS:eamon Job ID: [id number] Doc ID: [id number] Marleny Mckay M.D.
--- NOTE | 2022-04-29 18:02 | XRay Report ---
HISTORY: History: Stomach problems, evaluate anastomosis following gastrojejunal and jejunal jejunal anastomosis FINDINGS: Patient was examined while swallowing single contrast barium. There is normal oral and pharyngeal motility. The esophagus is normal. There is no hiatus hernia and no gastroesophageal reflux is present. Distal antrum may have been removed. There is a large amount of retained food in the stomach. It had been approximately five hours since the patient had eaten breakfast with no food after that. The retained food in the stomach Evaluation of the gastric mucosa somewhat limited. There is a widely patent gastrojejunostomy along the greater curvature of stomach. The barium quickly passed through the anastomosis into both afferent and efferent limbs of the jejunum and distal segment of the the duodenum. The proximal duodenum did not fill. The jejunal jejunal anastomosis also appears patent without evidence of stricture or inflammation. There is no evidence of small bowel obstruction. The distal jejunum and ileum are normal. The contrast entered the cecum at two hours, 20 minutes after beginning the study. There is still a large amount retained ingested material in the stomach at two hours and 20 minutes. One minute 48 seconds of fluoroscopy time was used. IMPRESSION: Large amount of retained food in the stomach. This could be a bezoar Widely patent gastrojejunostomy Interpreted and Authenticated by: Pato Hinson 04/29/22
[2022-04-29] MEDS: VENLAFAXINE 150 MG CAP.XL.24H PO SCH (20:28)
[2022-04-29] MEDS: PREGABALIN 150 MG CAPSULE PO SCH (20:28)
[2022-04-29] MEDS: NORTRIPTYLINE 10 MG CAPSULE PO SCH (20:29)
[2022-04-29] MEDS: METOCLOPRAMIDE 10 MG/2 ML VIAL IV SCH (22:08)
[2022-04-30] MEDS ORDERED: METOCLOPRAMIDE 10 MG/2 ML VIAL ONE ×2 (00:24→05:56)
[2022-04-30] MEDS: oxyCODONE/APAP 10/325MG TABLET PO PRN ×4 (00:28→12:49)
[2022-04-30] MEDS: CEFEPIME 2 GM VIAL IV SCH ×3 (00:28→14:51)
[2022-04-30] MEDS: DEXTROSE 5% IN WATER 1,000 ML IV SCH (00:29)
[2022-04-30] MEDS: METOCLOPRAMIDE 10 MG/2 ML VIAL IV SCH ×4 (00:37→11:06)
[2022-04-30] MEDS: POTASSIUM PHOSPHATE 40 MEQ in DEXTROSE 5% IN WATER 500 ML IV SCH (01:33)
[2022-04-30] MEDS: HYDROmorphone 1 MG/ML SYRINGE IV PRN ×4 (02:53→14:51)
[2022-04-30] MEDS: LORazepam 2 MG/ML VIAL IV PRN ×3 (04:40→12:49)
[2022-04-30] MEDS: 0.9 % SODIUM CHLORIDE 10 ML SYRINGE IV SCH ×2 (05:33→12:42)
[2022-04-30] MEDS: PANTOPRAZOLE 40 MG VIAL IV SCH (06:54)
[2022-04-30] MEDS: BUPRENORPHINE/NALOXONE 4MG/1MG ORAL FILM SL SCH (07:00)
--- NOTE | 2022-04-30 09:09 | XRay Report ---
HISTORY: Follow-up after gastrojejunostomy, stomach issues FINDINGS: Supine and erect views were obtained. There is residual barium in the stomach following yesterday's small bowel follow-through. There is also some residual ingested food in the stomach. The quantity of ingested food is less than was seen at the time of the small bowel follow-through. Most of the oral contrast is now located within the large intestine. A small amount of residual contrast is seen in the distal small intestine. The large and small intestine are normal in caliber. There is no evidence of ileus or obstruction. There is a residual tiny bubble of free air beneath the left diaphragm, adjacent to the splenic flexure. There is no evidence of leakage of barium into the peritoneal space. IMPRESSION: Resolved ileus Interpreted and Authenticated by: Pato Hinson 04/30/22
[2022-04-30 09:38] LABS: Basophils # (Auto) 0.05 K/mcL (0.00-0.30); Basophils % (Auto) 0.7 % (0.0-2.0); Eosinophils # (Auto) 0.52 K/mcL (0.00-0.70); Eosinophils % (Auto) 6.9 % (0.0-7.0); Hematocrit 41.8 % (34.1-44.9); Hemoglobin 12.8 g/dL (11.2-15.7); Lymphocytes # (Auto) 2.08 K/mcL (1.50-4.80); Lymphocytes % (Auto) 27.5 % (15.5-49.0); Mean Cell Volume 81.2 fL (80.0-100.0); Mean Corpuscular HGB Conc 30.6 g/dL (31.0-36.0); Mean Platelet Volume 9.7 fL (8.8-12.5); Monocytes # (Auto) 0.36 K/mcL (0.10-0.90); Monocytes % (Auto) 4.8 % (1.0-12.0); Neutrophils % (Auto) 59.8 % (38.0-78.0); Platelet Count 231 K/mcL (140-440); RBC 5.15 M/mcL (3.59-5.38); Red Cell Distribution Width 17.9 % (11.5-14.5); WBC 7.6 K/mcL (4.5-11.0)
[2022-04-30] MEDS ORDERED: FLU VACC QS2022-23(6MOS UP)/PF 60 MCG/0.5 ML SYRINGE IM ONE (10:00)
[2022-04-30 10:08] LABS: ALT/SGPT 15 U/L (<40); AST/SGOT 28 U/L (<32); Albumin 2.9 gm/dL (3.2-5.2); Albumin/Globulin Ratio 1.2 (1.0-2.3); Alkaline Phosphatase 127 U/L (39-117); Bilirubin,Direct < 0.2 mg/dL (0-0.3); Bilirubin,Total < 0.2 mg/dL (0.1-1.0); Blood Urea Nitrogen 7 mg/dL (6-20); Calcium 8.4 mg/dL (8.6-10.4); Carbon Dioxide 23 mmol/L (22-30); Chloride 109 mmol/L (96-108); Globulin 2.4 gm/dL (2.2-3.7); Glomerular Filtration Rate 119; Glucose 82 mg/dL (70-105); Lactate Dehydrogenase 339 U/L (135-225); Phosphorous 4.6 mg/dL (2.5-4.5); Triglycerides 177 mg/dL (<150); Uric Acid 3.2 mg/dL (2.5-8.0)
[2022-04-30] MEDS: NICOTINE 14 MG PATCH TOPICAL SCH (11:07)
--- NOTE | 2022-04-30 15:01 | Discharge Summary ---
Discharge Provider Provider IMPORTANT FOLLOW-UP INFORMATION FOR PCP: Patient information: Note initiated : 04/30/22 at 2:59 pm Service Date, if different from initiated Date: [] Patient: Priscila Forrest 41 y/o F admitted on 04/22/22 for Stomach Issues. Chief Complaint: [] Date of admission: 04/22/22 18:25 Discharge date: 04/30/22 Primary care physician: MALOU Marquez Admitting clinician: Marleny Mckay Attending physician on admission: Marleny Mckay Consults: 04/22/22 Consult to Physician [CONS] Stat Comment: Consulting Provider: Marleny Mckay Reason For Exam: Physician to Consult Attending physician on discharge: Marleny Mckay Discharging clinician: Marleny Mckay COURSE Hospital Course Hospital course: 41-year-old female with long-term history of recurrent gastric ulcer with gastric outlet obstruction. Her history dates back to 2014. She had truncal vagotomy with antrectomy and gastrojejunostomy on 20 June 2021. She has had persistent problems since that time and was not followed up at [facility]. She had recurrent episodes of nausea vomiting and a 40 pound weight loss. Upper GI showed poor flow into through the gastrojejunal anastomosis with major outlet obstruction. Patient was finally convinced to have endoscopy to evaluate the jejunal anastomosis. She was admitted and had upper endoscopy on April 30. This showed a very inflamed thickened fibrotic jejunal limb without obstruction. On 24 April 2022 the gastrojejunal anastomosis and the jejunal jejunal [id number] resected and primary Desean-en-Y gastrojejunostomy was performed with placement of the jejunal jejunal ostomy further distally. She has done well in the postop. Her diet was advanced on the third postoperative day and she had excellent emptying without nausea or vomiting. An upper GI with small bowel follow-through was performed on yesterday and it shows patency of the gastrojejunal and the jejunojejunal anastomosis. She is tolerating a soft diet and has no nausea or vomiting. She does not have pain. She is stable for discharge home. Discharge diagnosis: Gastrojejunal obstruction Secondary discharge diagnosis: Severe protein calorie malnutrition Slow transit constipation due to chronic narcotic use Chronic opioid dependency Depression with anxiety Reason for admission: Recurrent nausea vomiting and extreme weight loss Procedures: Upper endoscopy 23 April 2022 Resection of gastrojejunal and jejunal jejunal anastomosis with revision Pertinent studies/significant findings: Upper GI with small bowel follow-through Complications: None Time Spent with Patient Time attestation: Total time spent providing and/or coordinating discharge services: Time spent: Less than 30 minutes Physical Examination Vital Signs Vital signs: Temp Pulse Resp BP Pulse Ox O2 Del Method O2 Flow Rate 98.1 F 77 14 103/70 98 Room Air 2 04/30/22 07:56 04/30/22 07:56 04/30/22 07:56 04/30/22 07:56 04/30/22 07:56 04/30/22 07:56 04/26/22 08:00 General physical appearance General physical exam: moderate distress, moderate pain, cachectic and chronically ill Eyes Eye exam: PERRL and normal ocular movement ENT ENT exam: normal mucosa and poor retirement Head Head exam IM: Present atraumatic, normal inspection and normocephalic Neck Neck exam: no masses, no bruits, trachea midline and no lymphadenopathy Cardiovascular Cardiovascular exam IM: Present normal rate and rhythm, RRR, +S1 and +S2; Absent JVD Respiratory Respiratory exam: normal expansion, normal respiratory effort and clear to auscultation Abdomen Abdomen: Present soft, bowel sounds and surgical scars (Incision is healing nicely); Absent distended Integumentary Integumentary: Present no rash, no growths and no abnormal pigmentation Neurologic Neurologic: Present normal coordination and normal sensation Musculoskeletal Musculoskeletal: Present normal gait and normal posture Psychiatric Psychiatric: Present oriented to time, oriented to person, oriented to place, speech is normal and memory intact Discharge Plan Patient/Caregiver Discharge Instructions Activity: increase activity as tolerated Diet: Regular Diet Prescriptions: New sucralfate [Carafate] 1 gram tablet 1 g PO QIDP PRN (Reason: Chronic gastric ulcer) Qty: 120 3RF oxycodone-acetaminophen [Endocet] 10-325 mg tablet 1 tab PO Q4H PRN (Reason: Pain) Qty: 30 0RF pantoprazole 40 mg tablet,delayed release (DR/EC) 40 mg PO BIDAC Qty: 60 0RF Continued albuterol sulfate 90 mcg/actuation HFA aerosol inhaler 1 inh inhalation ONCE PRN (Reason: Shortness Of Breath) nicotine 21 mg/24 hr patch 24 hour 1 patch transdermal Q24H venlafaxine 150 mg capsule,extended release 24hr 150 mg PO QPM ondansetron 4 mg tablet,disintegrating 4 mg translingual PRN PRN (Reason: Nausea) pregabalin 100 mg capsule 300 mg PO QPM buprenorphine-naloxone [Suboxone] 8-2 mg film 1 film sublingual TID No Action pantoprazole [Protonix] 40 mg tablet,delayed release (DR/EC) 40 mg PO QAM Prescription drug monitoring program results: PDMP not reviewed Follow Up Plan Follow up with: Carlos Stubbs ARNP [Primary Care Provider] - Patient Disposition: Home, Self-Care Prognosis: Good Rehab Potential: Good I certify that the patient requires SNF services: No Overall status at discharge: patient is progressing back to baseline Discharge Orders: Discharge Order (Routine); Ordered 04/30/22 Ordered By: Marleny Mckay Pending Pending Pending: Resuscitation Status Resuscitate (Full Code) Diet GI Soft/Transitional Start Talia Apr 30 1002 Buprenorphine HCl (Buprenorphine/Naloxone 4mg/1mg Oral Film) 2 each SL BID YARON Last Admin: 04/30/22 07:00 Dose: Not Given Documented By: Admin: 04/29/22 20:27 Dose: Not Given Documented By: Admin: 04/29/22 10:30 Dose: Not Given Documented By: Admin: 04/28/22 20:47 Dose: Not Given Documented By: Admin: 04/28/22 08:36 Dose: Not Given Documented By: Admin: 04/27/22 21:13 Dose: Not Given Documented By: Admin: 04/27/22 08:40 Dose: Not Given Documented By: Admin: 04/26/22 21:39 Dose: Not Given Documented By: Admin: 04/26/22 09:29 Dose: Not Given Documented By: Admin: 04/25/22 22:13 Dose: Not Given Documented By: Admin: 04/25/22 08:22 Dose: Not Given Documented By: Admin: 04/24/22 21:19 Dose: Not Given Documented By: Admin: 04/24/22 08:18 Dose: Not Given Documented By: Admin: 04/23/22 20:50 Dose: Not Given Documented By: Admin: 04/23/22 08:35 Dose: Not Given Documented By: Admin: 04/22/22 21:23 Dose: Not Given Documented By: CARLO Cefepime HCl (Cefepime 2 Gm Vial) 2 gm IV Q8H [facility]; Protocol Last Admin: 04/30/22 14:51 Dose: 2 gm Documented By: Admin: 04/30/22 08:10 Dose: 2 gm Documented By: Admin: 04/30/22 00:28 Dose: 2 gm Documented By: Admin: 04/29/22 16:19 Dose: 2 gm Documented By: Admin: 04/29/22 08:34 Dose: 2 gm Documented By: Admin: 04/29/22 00:41 Dose: 2 gm Documented By: Admin: 04/28/22 16:02 Dose: 2 gm Documented By: Admin: 04/28/22 09:16 Dose: 2 gm Documented By: Admin: 04/27/22 23:08 Dose: 2 gm Documented By: Admin: 04/27/22 16:35 Dose: 2 gm Documented By: Admin: 04/27/22 07:35 Dose: 2 gm Documented By: Admin: 04/27/22 00:00 Dose: 2 gm Documented By: Admin: 04/26/22 16:50 Dose: 2 gm Documented By: Admin: 04/26/22 07:28 Dose: 2 gm Documented By: Admin: 04/26/22 00:40 Dose: 2 gm Documented By: Admin: 04/25/22 15:51 Dose: 2 gm Documented By: Admin: 04/25/22 08:26 Dose: 2 gm Documented By: Admin: 04/24/22 23:26 Dose: 2 gm Documented By: Admin: 04/24/22 15:16 Dose: 2 gm Documented By: Admin: 04/24/22 06:56 Dose: 2 gm Documented By: Admin: 04/23/22 23:57 Dose: 2 gm Documented By: Admin: 04/23/22 16:51 Dose: 2 gm Documented By: MARY Hydromorphone HCl (Hydromorphone 1 Mg/Ml Syringe) 1 mg IV Q4HP PRN; Protocol PRN Reason: Per Pain Protocol Last Admin: 04/30/22 14:51 Dose: 1 mg Documented By: Admin: 04/30/22 10:56 Dose: 1 mg Documented By: Admin: 04/30/22 06:55 Dose: 1 mg Documented By: Admin: 04/30/22 02:53 Dose: 1 mg Documented By: Admin: 04/29/22 21:49 Dose: 1 mg Documented By: Admin: 04/29/22 17:38 Dose: 1 mg Documented By: LISSET Dextrose (Dextrose 5% In Water) 1,000 mls @ 50 mls/hr IV .Q20H [facility] Last Admin: 04/30/22 00:29 Dose: Not Given Documented By: Infusion: 04/29/22 23:42 Dose: 0 mls/hr Documented By: Admin: 04/29/22 03:27 Dose: 50 mls/hr Documented By: Infusion: 04/28/22 16:00 Dose: 0 mls/hr Documented By: Admin: 04/28/22 09:16 Dose: Not Given Documented By: Admin: 04/27/22 12:37 Dose: 50 mls/hr Documented By: Infusion: 04/27/22 12:37 Dose: 50 mls/hr Documented By: Admin: 04/26/22 16:51 Dose: 50 mls/hr Documented By: Admin: 04/25/22 22:12 Dose: Not Given Documented By: Admin: 04/25/22 03:32 Dose: Not Given Documented By: Infusion: 04/25/22 02:30 Dose: 0 mls/hr Documented By: Admin: 04/24/22 05:33 Dose: 50 mls/hr Documented By: Infusion: 04/24/22 04:26 Dose: 50 mls/hr Documented By: Admin: 04/23/22 08:26 Dose: 50 mls/hr Documented By: MARY Lorazepam (Lorazepam 2 Mg/Ml Vial) 1 mg IV Q4HP PRN PRN Reason: Anxiety Last Admin: 04/30/22 12:49 Dose: 1 mg Documented By: Admin: 04/30/22 08:36 Dose: 1 mg Documented By: Admin: 04/30/22 04:40 Dose: 1 mg Documented By: Admin: 04/29/22 21:50 Dose: 1 mg Documented By: Admin: 04/29/22 17:33 Dose: 1 mg Documented By: Admin: 04/29/22 12:22 Dose: 1 mg Documented By: Admin: 04/29/22 07:16 Dose: 1 mg Documented By: Admin: 04/29/22 02:42 Dose: 1 mg Documented By: Admin: 04/28/22 22:44 Dose: 1 mg Documented By: Admin: 04/28/22 18:24 Dose: 1 mg Documented By: Admin: 04/28/22 13:49 Dose: 1 mg Documented By: Admin: 04/28/22 09:16 Dose: 1 mg Documented By: Admin: 04/28/22 05:16 Dose: 1 mg Documented By: Admin: 04/28/22 01:15 Dose: 1 mg Documented By: Admin: 04/27/22 21:02 Dose: 1 mg Documented By: Admin: 04/27/22 16:35 Dose: 1 mg Documented By: Admin: 04/27/22 12:37 Dose: 1 mg Documented By: Admin: 04/27/22 08:33 Dose: 1 mg Documented By: Admin: 04/27/22 00:01 Dose: 1 mg Documented By: Admin: 04/26/22 19:14 Dose: 1 mg Documented By: ZIYAD Metoclopramide HCl (Metoclopramide 10 Mg/2 Ml Vial) 10 mg IV Q6 [facility] Admin: 04/30/22 11:06 Dose: 10 mg Documented By: Admin: 04/30/22 05:58 Dose: Not Given Documented By: Admin: 04/30/22 00:37 Dose: Not Given Documented By: Admin: 04/29/22 22:08 Dose: Not Given Documented By: MAX Nicotine (Nicotine 14 Mg Patch) 14 mg TOPICAL DAILY@1000 YARON Last Admin: 04/30/22 11:07 Dose: 14 mg Documented By: Admin: 04/29/22 10:25 Dose: 14 mg Documented By: Admin: 04/28/22 09:22 Dose: 14 mg Documented By: Admin: 04/27/22 09:41 Dose: 14 mg Documented By: Admin: 04/26/22 10:12 Dose: 14 mg Documented By: Admin: 04/25/22 09:36 Dose: 14 mg Documented By: Admin: 04/24/22 15:15 Dose: 14 mg Documented By: Admin: 04/23/22 12:25 Dose: 14 mg Documented By: Admin: 04/22/22 22:59 Dose: 14 mg Documented By: CARLO Nortriptyline HCl (Nortriptyline 10 Mg Capsule) 10 mg PO HS [facility] Last Admin: 04/29/22 20:29 Dose: Not Given Documented By: Admin: 04/28/22 23:20 Dose: Not Given Documented By: Admin: 04/27/22 21:13 Dose: Not Given Documented By: Admin: 04/26/22 21:39 Dose: Not Given Documented By: Admin: 04/25/22 22:12 Dose: Not Given Documented By: Admin: 04/24/22 21:19 Dose: Not Given Documented By: Admin: 04/23/22 20:50 Dose: Not Given Documented By: Admin: 04/22/22 21:21 Dose: Not Given Documented By: CARLO Ondansetron HCl (Ondansetron 4 Mg/2 Ml Vial) 4 mg IV Q6HP PRN PRN Reason: Nausea And Vomiting Last Admin: 04/28/22 18:48 Dose: 4 mg Documented By: Admin: 04/26/22 17:43 Dose: 4 mg Documented By: MARVIN Oxycodone/Acetaminophen (Oxycodone/Apap 10/325mg Tablet) 1 tab PO Q4HP PRN; Protocol PRN Reason: Per Pain Protocol Last Admin: 04/30/22 12:49 Dose: 1 tab Documented By: Admin: 04/30/22 08:36 Dose: 1 tab Documented By: Admin: 04/30/22 04:39 Dose: 1 tab Documented By: [email or web address] Admin: 04/30/22 00:28 Dose: 1 tab Documented By: Admin: 04/29/22 20:28 Dose: 1 tab Documented By: Admin: 04/29/22 16:19 Dose: 1 tab Documented By: Admin: 04/29/22 12:13 Dose: 1 tab Documented By: Admin: 04/29/22 08:34 Dose: 1 tab Documented By: LISSET Pantoprazole Sodium (Pantoprazole 40 Mg Vial) 40 mg IV BIDAC [facility] Admin: 04/30/22 06:54 Dose: 40 mg Documented By: Admin: 04/29/22 16:19 Dose: 40 mg Documented By: Admin: 04/29/22 07:16 Dose: 40 mg Documented By: Admin: 04/28/22 16:02 Dose: 40 mg Documented By: Admin: 04/28/22 07:23 Dose: 40 mg Documented By: Admin: 04/27/22 16:35 Dose: 40 mg Documented By: Admin: 04/27/22 07:35 Dose: 40 mg Documented By: Admin: 04/26/22 17:37 Dose: 40 mg Documented By: Admin: 04/26/22 07:29 Dose: 40 mg Documented By: Admin: 04/25/22 17:22 Dose: 40 mg Documented By: Admin: 04/25/22 07:40 Dose: 40 mg Documented By: Admin: 04/24/22 16:39 Dose: 40 mg Documented By: Admin: 04/24/22 06:57 Dose: 40 mg Documented By: Admin: 04/23/22 16:51 Dose: 40 mg Documented By: Admin: 04/23/22 07:47 Dose: 40 mg Documented By: Admin: 04/22/22 18:47 Dose: 40 mg Documented By: CARLO Pregabalin (Pregabalin 150 Mg Capsule) 300 mg PO HS [facility] Last Admin: 04/29/22 20:28 Dose: 300 mg Documented By: Admin: 04/28/22 20:46 Dose: 300 mg Documented By: Admin: 04/27/22 21:02 Dose: 300 mg Documented By: Admin: 04/26/22 21:34 Dose: 300 mg Documented By: Admin: 04/25/22 22:12 Dose: 300 mg Documented By: Admin: 04/24/22 21:32 Dose: 300 mg Documented By: Admin: 04/23/22 20:49 Dose: 300 mg Documented By: Admin: 04/22/22 22:36 Dose: 300 mg Documented By: CARLO Promethazine HCl (Promethazine 25 Mg/Ml Vial) 12.5 mg IV Q6HP PRN PRN Reason: Nausea And Vomiting Last Admin: 04/26/22 07:36 Dose: 12.5 mg Documented By: Admin: 04/25/22 13:45 Dose: 12.5 mg Documented By: Admin: 04/25/22 07:40 Dose: 12.5 mg Documented By: Admin: 04/25/22 01:41 Dose: 12.5 mg Documented By: LILLIE Sodium Chloride (0.9 % Sodium Chloride 10 Ml Syringe) 10 ml IV Q8 [facility] Last Admin: 04/30/22 12:42 Dose: Not Given Documented By: Admin: 04/30/22 05:33 Dose: Not Given Documented By: Admin: 04/29/22 20:27 Dose: Not Given Documented By: Admin: 04/29/22 13:20 Dose: Not Given Documented By: Admin: 04/29/22 05:12 Dose: Not Given Documented By: Admin: 04/28/22 20:34 Dose: Not Given Documented By: Admin: 04/28/22 13:49 Dose: 10 ml Documented By: Admin: 04/28/22 04:22 Dose: Not Given Documented By: Admin: 04/27/22 21:13 Dose: Not Given Documented By: Admin: 04/27/22 14:07 Dose: Not Given Documented By: Admin: 04/27/22 06:13 Dose: Not Given Documented By: Admin: 04/26/22 21:38 Dose: 10 ml Documented By: Admin: 04/26/22 14:43 Dose: 10 ml Documented By: Admin: 04/26/22 05:22 Dose: 10 ml Documented By: Admin: 04/25/22 22:13 Dose: 10 ml Documented By: Admin: 04/25/22 12:56 Dose: Not Given Documented By: Admin: 04/25/22 04:30 Dose: 10 ml Documented By: Admin: 04/24/22 21:34 Dose: 10 ml Documented By: Admin: 04/24/22 14:02 Dose: Not Given Documented By: Admin: 04/24/22 05:31 Dose: Not Given Documented By: Admin: 04/23/22 20:50 Dose: Not Given Documented By: Admin: 04/23/22 12:28 Dose: Not Given Documented By: Admin: 04/23/22 05:37 Dose: Not Given Documented By: Admin: 04/22/22 21:23 Dose: Not Given Documented By: CARLO Venlafaxine HCl (Venlafaxine 150 Mg Cap.Xl.24h) 150 mg PO HS [facility] Admin: 04/29/22 20:28 Dose: 150 mg Documented By: Admin: 04/28/22 20:41 Dose: 150 mg Documented By: Admin: 04/27/22 21:02 Dose: 150 mg Documented By: Admin: 04/26/22 21:34 Dose: 150 mg Documented By: Admin: 04/25/22 22:12 Dose: 150 mg Documented By: Admin: 04/24/22 21:32 Dose: 150 mg Documented By: Admin: 04/23/22 20:49 Dose: 150 mg Documented By: Admin: 04/22/22 22:36 Dose: 150 mg Documented By: CARLO Shift Summary 04/30/22 03:49 Shift Summary by Shaheed Mensah Primary Diagnosis: Gastric outlet obstruction Registration Status:inpatient Date of Surgery (if applicable):04/24/2022 Pertinent Medical Dx/Issue(s): Chronic pain, GERD, closed fracture of cervical spine, Gastroparesis, Gastric ulcers, GJ loop obstruction, anxiety, depression, gastro-enteric bypass, hiatal hernias. Med management (antibiotics, diuretics, BP): Maxipeme for antibiotics, IV dilaudid and PO percocet Skin/Wound Care: no issues, midline incision CDI Vital Signs with Trends: VSS on RA O2, liter flow/saturations: RA, sats in mid to high 90s Pain management (acute vs. chronic): dialudid and percocet given x2 for pain, ativan x1 for anxiety Lab/Rad (abnormals, trends): K+3.3,Phos 2.1,Mag 2.9. Currently receiving K-Phos 40 meq rider ( last bag) Neuro/Mental Status: A&Ox4 Cardiac Rhythm, Alarm Settings: N/A Urinary Elimination Device: bathroom in room Urinary output greater than 30mL/hr? yes Date of last BM: 04/29 Lines/Tubes: 20g RFA infusing [id number] at 50ml/hr Activity: ad prashant Recommendations/questions for MD: Discharge Plan (needs, disposition, etc): Had SBFT yesterday results called in and read to Dr. Mckay. possible discharge today. Diet advanced to full liquid diet and is tolerating well Initialized on 04/30/22 03:49 - END OF NOTE
--- NOTE | 2022-05-05 12:55 | EGD Procedure Note ---
DATE OF PROCEDURE: 04/23/2022 PREOPERATIVE DIAGNOSES: 1. Recurrent nausea and vomiting. 2. Gastrojejunal obstruction. POSTOPERATIVE DIAGNOSIS: Gastrojejunal obstruction. PROCEDURE: Upper endoscopy. SURGEON: Marleny Mckay M.D. DESCRIPTION OF PROCEDURE: Under general anesthesia, the patient turned to the left lateral decubitus position. Timeout procedure was carried out as per protocol. Bite block was placed. Scope was introduced through the bite block into the esophagus. Esophagus showed evidence of reflux with inflammation of the distal esophagus and GE junction. There was bile staining of the distal esophagus. There was mild inflammation at the GE junction. There was a moderate amount of bilious liquid in the gastric pouch. In the base of the pouch, there was an inflamed area and a moderate amount of bile was noted to be bubbling through this area. This represented the anastomosis. I tried to cannulate the anastomosis, but it was extremely tiny and would not admit the gastroscope. Irrigation of the pouch was carried out. No other pathology was noted. Air was suctioned from the pouch and the scope was removed. The patient tolerated the procedure well. She was awakened, monitored, and transferred back to her room in satisfactory condition. LCS:eamon Job ID: [id number] Doc ID: [id number] Marleny Mckay M.D.
== END 2022-04-30 15:42 | disposition home or self-care (01) | DRG 326 ==
LOC: ED 14:37 → MEDSUR 18:25
PROVIDERS: ADMIT Family Medicine Adult Medicine; ATTEND Family Medicine Adult Medicine

== ENCOUNTER 2022-05-14 04:21 | Inpatient (IN) ==
--- NOTE | 2022-05-14 04:24 | Emergency Department Note ---
Abdominal Pain HPI General Chief Complaint: Abdominal Pain Stated Complaint: sbo Time Seen by Provider: 05/14/22 04:22 Mode of arrival: ambulatory History of Present Illness HPI Narrative: Narrative: Patient presents with known partial small bowel obstruction she had to leave briefly to let her dogs out. I have already spoke with Dr. Mckay and plan will be for patient to be admitted. Patient continues to have abdominal pain. Related Data Home Medications Medication Instructions Recorded Confirmed albuterol sulfate 90 mcg/actuation 1 inh inhalation ONCE PRN 05/17/20 05/07/22 aerosol inhaler Shortness Of Breath nicotine 21 mg/24 hr daily 1 patch transdermal Q24H 05/17/20 05/14/22 transdermal patch venlafaxine 150 mg 150 mg PO QPM 05/17/20 05/14/22 capsule,extended release 24 hr ondansetron 4 mg disintegrating 4 mg translingual PRN PRN Nausea 03/19/22 05/14/22 tablet pantoprazole 40 mg tablet,delayed 40 mg PO QAM 03/19/22 05/14/22 release (Protonix) pregabalin 100 mg capsule 300 mg PO QPM 03/19/22 05/14/22 buprenorphine 8 mg-naloxone 2 mg 1 film sublingual TID 04/22/22 05/14/22 sublingual film (Suboxone) Previous Rx's Medication Instructions Recorded oxycodone-acetaminophen 10 mg-325 1 tab PO Q4H PRN Pain #30 tabs 04/30/22 mg tablet (Endocet) pantoprazole 40 mg tablet,delayed 40 mg PO BIDAC #60 tabs 04/30/22 release sucralfate 1 gram tablet (Carafate) 1 g PO .as needed #120 tabs 05/01/22 Allergies Allergy/AdvReac Type Severity Reaction Status Date / Time azithromycin Allergy Severe Anaphylaxis Verified 05/14/22 04:24 Review of Systems ROS ROS Narrative: Narrative: All systems ED: reviewed and negative except as stated. [facility] Narrative Patient History Narrative: Narrative: Medical/Surgical/Family History All Active Problems (Updated 05/14/22 @ 04:58 by Kingsley Tellez MD) Small bowel obstruction, partial (Acute) Partial small bowel obstruction (Acute) Nausea & vomiting (Acute) Abdominal pain (Acute) Constipation by delayed colonic transit (Acute) Gastrojejunal loop obstruction (Acute) Iron deficiency anemia (Chronic) Opioid dependence (Chronic) Severe protein-calorie malnutrition (Chronic) GERD (gastroesophageal reflux disease) (Chronic) Endometriosis (Chronic) Closed fracture of cervical spine (Chronic) Chronic post-traumatic stress disorder (PTSD) (Chronic) Pyloric obstruction (Chronic) Left upper quadrant pain (Chronic) Anterior chest wall pain (Chronic) Gastroparesis (Chronic) Arthritis (Chronic) Recurrent major depression (Chronic) Abdominal pain (Chronic) Gastric ulcer (Chronic) Medical History (Updated 05/14/22 @ 04:58 by Kingsley Tellez MD) Abdominal pain Anterior chest wall pain Arthritis Chronic post-traumatic stress disorder (PTSD) Closed fracture of cervical spine Endometriosis Gastric ulcer With perforation Gastroparesis GERD (gastroesophageal reflux disease) Iron deficiency anemia Left upper quadrant pain Opioid dependence Pyloric obstruction Recurrent major depression Severe protein-calorie malnutrition Surgical History (Updated 05/04/22 @ 14:14 by Criselda Weston [facility]) H/O esophagogastroduodenoscopy (10/30/14) History of (~04/13/00) 10/05/2005 History of esophagogastroduodenoscopy (EGD) (06/12/21) [facility], completely obstructing non-bleeding gastric ulcer, GI unable to advance endoscope past pyloric ulcer. EGD also done 05/29/21 History of exploratory laparotomy (06/13/21) Rhea Otto, [place], with bilateral truncal vagotomy, antrectomy and Desean-en-Y retrocolic gastrojejunostomy History of surgery Abdominal wall hernia procedure - multiple, most recent February 2021 History of surgery Closure of perforated gastric ulcer - x2, most recent 02/2021 perforated gastric ulcer with gastric outlet obstruction History of surgery 04/24/2022-Resection of gastrojejunal anastomosis with formation of Desean-en-Y gastrojejunostomy Family History Father Diabetes mellitus Heart disease Depressive disorder High blood pressure Anxiety disorder Myocardial infarction Mother Diabetes mellitus Heart disease Alcohol abuse Dementia Daughter ADHD (attention deficit hyperactivity disorder) Social History Smoking Status: Current some day smoker Alcohol Intake Frequency: does not drink Substance Use: does not use Exam Narrative Narrative: Narrative: General: Awake. Appears chronically ill, appears older than stated age HEENT: NCAT PERRL EOMI. No conjunctivitis. Membranes moist. Neck: Supple, trachea midline Cardiovascular: RRR. No murmur. No rubs. No gallops. Respiratory: No respiratory distress. Breath sounds equal. Lungs clear. Gastrointestinal: Distended, decreased bowel sounds on auscultation, patient has significant left upper quadrant tenderness to palpation Musculoskeletal: No pain. No soft tissue swelling. Good ROM. No signs injury Skin: Patient has approximately 2 cm wound dehiscence with blood in the inferior portion of her midline abdominal scar Neurologic: Alert and oriented x3 moves all extremities equally and fully, speech is fluent face is symmetric Course Vital Signs Vital signs: Vital Signs Temperature 96.7 F L 05/14/22 04:21 Pulse Rate 104 H 05/14/22 04:21 Respiratory Rate 20 05/14/22 04:21 Blood Pressure 121/76 05/14/22 04:21 Pulse Oximetry (%) 100 05/14/22 04:21 Oxygen Delivery Method Room Air 05/14/22 04:21 Temperature 98.0 F 05/14/22 05:13 Pulse Rate 94 H 05/14/22 05:13 Respiratory Rate 24 H 05/14/22 05:13 Blood Pressure 118/75 05/14/22 05:13 Pulse Oximetry (%) 97 05/14/22 05:13 Oxygen Delivery Method Room Air 05/14/22 05:13 [facility] MDM Narrative Medical decision making narrative: Narrative: Patient presents to the emergency department she is a few weeks postop with wound dehiscence and left upper quadrant abdominal pain. Please see my initial note as patient had to leave AGAINST MEDICAL ADVICE she returns and will be admitted for partial small bowel obstruction. IV was placed patient started on maintenance fluids, as needed Zofran, as needed Dilaudid, as needed Toradol and Tylenol. Discharge Plan Patient/Caregiver Discharge Instructions Pt seen by DEPARTMENT CHAIR/PA only: No Clinical Impression: Partial small bowel obstruction Patient Disposition: Xfer As Inpt ([facility]) Condition: Fair Discharge Date/Time: 05/14/22 05:03
[2022-05-14] MEDS ORDERED: ONDANSETRON 4 MG/2 ML VIAL IV PRN (04:26)
[2022-05-14] MEDS ORDERED: ACETAMINOPHEN 325 MG TABLET PO PRN (04:26)
[2022-05-14] MEDS: HYDROmorphone 1 MG/ML SYRINGE IV PRN ×9 (04:42→23:05)
[2022-05-14] MEDS: LACTATED RINGERS 1,000 ML IV SCH ×2 (04:42→17:02)
[2022-05-14] MEDS ORDERED: LORazepam 2 MG/ML VIAL IV ONE (04:42)
[2022-05-14] MEDS: KETOROLAC 30 MG/ML VIAL IV PRN (04:43)
[2022-05-14] MEDS: 0.9 % SODIUM CHLORIDE 10 ML SYRINGE IV SCH ×6 (05:20→21:26)
[2022-05-14] MEDS: METOCLOPRAMIDE 10 MG/2 ML VIAL IV SCH ×2 (11:32→16:42)
[2022-05-14] MEDS: METHYLNALTREXONE BROMIDE 12 MG/0.6 ML SYRINGE SQ SCH (11:32)
--- NOTE | 2022-05-14 11:47 | XRay Report ---
CLINICAL INFORMATION: Small bowel obstruction COMPARISON: None. TECHNIQUE: A peanut shaker imaging, and review was administered and serial films were obtained for 45 minutes. FINDINGS: Billroth II type anatomy appreciated. The stomach is mildly dilated with dilatation of the distal esophagus. The gastrojejunal anastomosis appears to be widely patent however. The jejunum is only equivocally dilated to the distal anastomosis. The remainder of the small bowel is normal in caliber. Small bowel transit time is only approximately 30 minutes. No evidence of extravasation. IMPRESSION: No evidence of small bowel obstruction Interpreted and Authenticated by: Temo Smalls 05/14/22
[2022-05-14] MEDS ORDERED: ALBUTEROL SULFATE 60 PUFF INHALER INH PRN (12:26)
[2022-05-14] MEDS ORDERED: ONDANSETRON 4 MG ODT TABLET SL PRN (12:34)
[2022-05-14] MEDS: oxyCODONE/APAP 10/325MG TABLET PO PRN ×2 (13:30→21:20)
[2022-05-14] MEDS: NICOTINE 21 MG PATCH TOPICAL SCH (13:30)
[2022-05-14] MEDS: SUCRALFATE 1 GM TABLET PO SCH ×3 (13:30→20:50)
--- NOTE | 2022-05-14 16:37 | General Surg History&Physical ---
HPI History of Present Illness Patient information: Note initiated : 05/14/22 at 4:37 pm Service Date, if different from initiated Date: [] Patient: Priscila Forrest Lashon a 41 y/o F admitted on 05/14/22 for sbo. Chief Complaint: [] History of present illness: Ms. Forrest is a 41 year old F admitted for treatment of suspected slow transit constipation with small bowel partial obstruction. Patient has a history of chronic narcotic use and is on chronic Suboxone. She underwent revision of Desean-en-Y gastrojejunostomy in April and had been doing very well. She states that her lower midline incision and she had some purulent drainage. This is the reason that she came to the ER however upon arriving in the ER she complained episodic nausea vomiting and decreased bowel movements. Abdominal x-ray shows very large fecal burden compatible with narcotic induced constipation. Patient is admitted and will be treated with Relistor and metoclopramide followed by small bowel follow-through. Review of Systems All systems: reviewed and no additional remarkable complaints except as stated PFSH PFSH All Active Problems (Updated 05/14/22 @ 17:02 by Marleny Mckay MD) Constipation due to pain medication therapy (Acute) Small bowel obstruction, partial (Acute) Partial small bowel obstruction (Acute) Nausea & vomiting (Acute) Abdominal pain (Acute) Constipation by delayed colonic transit (Acute) Gastrojejunal loop obstruction (Acute) Iron deficiency anemia (Chronic) Opioid dependence (Chronic) Severe protein-calorie malnutrition (Chronic) GERD (gastroesophageal reflux disease) (Chronic) Endometriosis (Chronic) Closed fracture of cervical spine (Chronic) Chronic post-traumatic stress disorder (PTSD) (Chronic) Pyloric obstruction (Chronic) Left upper quadrant pain (Chronic) Anterior chest wall pain (Chronic) Gastroparesis (Chronic) Arthritis (Chronic) Recurrent major depression (Chronic) Abdominal pain (Chronic) Gastric ulcer (Chronic) Medical History (Updated 05/14/22 @ 17:02 by Marleny Mckay MD) Abdominal pain Anterior chest wall pain Arthritis Chronic post-traumatic stress disorder (PTSD) Closed fracture of cervical spine Endometriosis Gastric ulcer With perforation Gastroparesis GERD (gastroesophageal reflux disease) Iron deficiency anemia Left upper quadrant pain Opioid dependence Pyloric obstruction Recurrent major depression Severe protein-calorie malnutrition Surgical History (Updated 05/04/22 @ 14:14 by Criselda Weston CMA) H/O esophagogastroduodenoscopy (10/30/14) History of (~04/13/00) 10/05/2005 History of esophagogastroduodenoscopy (EGD) (06/12/21) [facility], completely obstructing non-bleeding gastric ulcer, GI unable to advance endoscope past pyloric ulcer. EGD also done 05/29/21 History of exploratory laparotomy (06/13/21) Rhea Otto, [place], with bilateral truncal vagotomy, antrectomy and Desean-en-Y retrocolic gastrojejunostomy History of surgery Abdominal wall hernia procedure - multiple, most recent February 2021 History of surgery Closure of perforated gastric ulcer - x2, most recent 02/2021 perforated gastric ulcer with gastric outlet obstruction History of surgery 04/24/2022-Resection of gastrojejunal anastomosis with formation of Desean-en-Y gastrojejunostomy Family History Father Diabetes mellitus Heart disease Depressive disorder High blood pressure Anxiety disorder Myocardial infarction Mother Diabetes mellitus Heart disease Alcohol abuse Dementia Daughter ADHD (attention deficit hyperactivity disorder) Social History household members: alone marital status: single education level: college occupational status: employed sexually active: No smoking status: Current some day smoker alcohol intake frequency: does not drink substance use type: does not use dina/jehovah's witness: Restorationist seatbelt use: always working smoke detector in home: Yes firearms in home: Yes MEDS/ALLERGIES Home Medications and Allergies Home Medications Medication Instructions Recorded Confirmed Type albuterol sulfate 90 mcg/actuation 1 inh inhalation ONCE PRN 05/17/20 05/14/22 History aerosol inhaler Shortness Of Breath nicotine 21 mg/24 hr daily 1 patch transdermal Q24H 05/17/20 05/14/22 History transdermal patch venlafaxine 150 mg 150 mg PO QPM 05/17/20 05/14/22 History capsule,extended release 24 hr ondansetron 4 mg disintegrating 4 mg translingual PRN PRN Nausea 03/19/22 05/14/22 History tablet pantoprazole 40 mg tablet,delayed 40 mg PO QAM 03/19/22 05/14/22 History release (Protonix) pregabalin 100 mg capsule 300 mg PO QPM 03/19/22 05/14/22 History buprenorphine 8 mg-naloxone 2 mg 3 film sublingual TID 04/22/22 05/15/22 History sublingual film (Suboxone) oxycodone-acetaminophen 10 mg-325 1 tab PO Q4H PRN Pain #30 tabs 04/30/22 05/14/22 Rx mg tablet (Endocet) pantoprazole 40 mg tablet,delayed 40 mg PO BIDAC #60 tabs 04/30/22 05/14/22 Rx release sucralfate 1 gram tablet (Carafate) 1 g PO .as needed #120 tabs 05/01/22 05/14/22 Rx clonazepam 1 mg tablet 1 mg PO QDP PRN Anxiety 05/14/22 05/14/22 History Allergies Allergy/AdvReac Type Severity Reaction Status Date / Time azithromycin Allergy Severe Anaphylaxis Verified 05/14/22 04:24 Physical Examination Vital Signs Vital signs: Temp Pulse Resp BP Pulse Ox O2 Del Method 97.5 F 101 H 24 H 106/70 98 Room Air 05/14/22 07:59 05/14/22 07:59 05/14/22 05:13 05/14/22 07:59 05/14/22 07:59 05/14/22 07:59 General physical appearance General physical exam: moderate distress, moderate pain, cachectic and chronically ill Eyes Eye exam: PERRL and normal ocular movement ENT ENT exam: normal mucosa and no congestion Head Head exam IM: Present atraumatic, normal inspection and normocephalic Neck Neck exam: no masses, no bruits, trachea midline, no lymphadenopathy and no venous distension Cardiovascular Cardiovascular exam IM: Present normal rate and rhythm, RRR, +S1 and +S2; Absent gallop or JVD Respiratory Respiratory exam: normal expansion, normal respiratory effort and clear to auscultation Abdomen Abdomen: Present tender, bowel sounds (Hypoactive bowel sounds), surgical scars (Midline scar healed except for 1 cm segment in the distal one fourth of the incision) and distended Integumentary Integumentary: Present no rash, no growths and no abnormal pigmentation Neurologic Neurologic: Present normal coordination and normal sensation Musculoskeletal Musculoskeletal: Present normal gait and normal posture Psychiatric Psychiatric: Present oriented to time, oriented to person, oriented to place, speech is normal and memory intact Results Labs Labs: All other labs normal. A/P Assessment and plan (1) Constipation due to pain medication therapy: Status: Acute (2) Small bowel obstruction, partial: Status: Acute (3) Nausea & vomiting: Status: Acute (4) Severe protein-calorie malnutrition: Status: Chronic (5) GERD (gastroesophageal reflux disease): Status: Chronic Plan RELISTOR 12 mg subcu daily Metoclopramide 10 mg IV every 6 MiraLAX 17 g every 4 hours Upper GI with small bowel follow-through in the a.m. Sepsis Sepsis Identified: No Narrative Plan of Treatment: Please use MiraLAX 3-4 times daily Time Spent With Patient Time: Total time spent is greater than 50% in coordination of care (as documented) at patient's floor/unit and/or counseling patient:
[2022-05-14] MEDS: PANTOPRAZOLE 40 MG TABLET PO SCH (16:42)
--- NOTE | 2022-05-14 17:03 | General Surgery Progress Note ---
SUBJECTIVE Subjective Patient information: Note initiated : 05/14/22 at 4:59 pm Service Date, if different from initiated Date: [] Patient: Priscila Forrest a 41 y/o F admitted on 05/14/22 for sbo. Chief Complaint: [] Interval history: Patient has improved throughout the day. She has had a high volume output of stool in. Small bowel follow-through shows transit into the colon than 30 minutes. Her abdominal pain is improved. Constitutional Vitals: Vital Signs Temp Pulse Resp BP Pulse Ox O2 Del Method 97.5 F 101 H 24 H 106/70 98 Room Air 05/14/22 07:59 05/14/22 07:59 05/14/22 05:13 05/14/22 07:59 05/14/22 07:59 05/14/22 07:59 Period Temp Pulse Resp BP Sys/Cosme Pulse Ox O2 Del Method O2 Flow Rate Last 24 Hr 96.7 F-98.0 F 94-104 20-24 106-121/70-76 95-100 Room Air-Room Air Intake and Output 05/14/22 05/14/22 05/14/22 03:59 11:59 19:59 Output Total 400 Balance -400 Weight 115 lb 8 oz Patient Weight 05/15/22 03:59 Weight 115 lb 8 oz Intake & Output: Intake & Output 05/14/22 05/14/22 05/14/22 03:59 11:59 19:59 Output Total 400 Balance -400 Weight 115 lb 8 oz Output: Void Amount 400 Other: Urine Appearance Clear Urine Odor Normal Respiratory Respiratory exam: Present normal respiratory exam and CTAB Cardiovascular Cardiovascular exam: Present normal rate and rhythm, RRR, +S1 and +S2 GI/Abdominal GI/Abdominal exam: Present normal bowel sounds, soft, distended and tenderness (Mild tenderness along the incision) Additional comments: Incision has small opening in lower midline with small amount of superficial purulence. There is no abscess. A/P Assessment and plan (1) Constipation due to pain medication therapy: Status: Acute (2) Opioid dependence: Status: Chronic (3) GERD (gastroesophageal reflux disease): Status: Chronic Plan Start MiraLAX 3 times daily GI soft diet Abdominal x-rays in the morning Time Spent With Patient Time: Total time spent is greater than 50% in coordination of care (as documented) at patient's floor/unit and/or counseling patient:
[2022-05-14] MEDS: POLYETHYLENE GLYCOL 3350 17 GM PACKET PO SCH ×2 (18:15→21:21)
[2022-05-14] MEDS ORDERED: clonazePAM 1 MG TABLET PO PRN (20:11)
[2022-05-14] MEDS ORDERED: VENLAFAXINE 150 MG CAP.XL.24H PO SCH (21:00)
[2022-05-14] MEDS ORDERED: PREGABALIN 150 MG CAPSULE PO SCH (21:00)
[2022-05-15] MEDS: HYDROmorphone 1 MG/ML SYRINGE IV PRN ×5 (02:00→12:16)
[2022-05-15] MEDS: METOCLOPRAMIDE 10 MG/2 ML VIAL IV SCH ×3 (02:08→12:15)
[2022-05-15] MEDS: oxyCODONE/APAP 10/325MG TABLET PO PRN ×2 (02:51→09:06)
[2022-05-15] MEDS: 0.9 % SODIUM CHLORIDE 10 ML SYRINGE IV SCH (06:04)
[2022-05-15] MEDS: PANTOPRAZOLE 40 MG TABLET PO SCH (07:05)
[2022-05-15] MEDS: LACTATED RINGERS 1,000 ML IV SCH (07:15)
[2022-05-15] MEDS: KETOROLAC 30 MG/ML VIAL IV PRN (07:29)
[2022-05-15] MEDS ORDERED: BUPRENORPHINE NALOXONE SUBLINGUAL SCH (09:00)
[2022-05-15] MEDS ORDERED: BUPRENORPHINE/NALOXONE 4MG/1MG ORAL FILM SL SCH ×2 (09:00→15:00)
--- NOTE | 2022-05-15 09:34 | XRay Report ---
CLINICAL INFORMATION: FOR F/U OF ILEUS COMPARISON: None. FINDINGS: Stomach, small large bowel are normal caliber.. Barium administered yesterday has mostly been evacuated with moderate residual in the descending and rectosigmoid colon. There is no free air, soft tissue mass, organomegaly or pathologic calcification. IMPRESSION: Normal abdomen Interpreted and Authenticated by: Temo Smalls 05/15/22
[2022-05-15] MEDS: METHYLNALTREXONE BROMIDE 12 MG/0.6 ML SYRINGE SQ SCH (09:53)
[2022-05-15] MEDS: POLYETHYLENE GLYCOL 3350 17 GM PACKET PO SCH (09:53)
[2022-05-15] MEDS: SUCRALFATE 1 GM TABLET PO SCH (09:53)
--- NOTE | 2022-05-15 12:00 | Discharge Summary ---
Discharge Provider Provider IMPORTANT FOLLOW-UP INFORMATION FOR PCP: Patient information: Note initiated : 05/15/22 at 11:51 am Service Date, if different from initiated Date: [] Patient: Priscila Forrest 41 y/o F admitted on 05/14/22 for sbo. Chief Complaint: [] Date of admission: 05/14/22 05:03 Discharge date: 05/15/22 Primary care physician: MALOU Marquez Admitting clinician: Marleny Mckay Attending physician on admission: Marleny Mckay Attending physician on discharge: Marleny Mckay Discharging clinician: Marleny Mckay COURSE Hospital Course Hospital course: 41-year-old female with recent revision of Desean-en-Y gastrojejunostomy. Patient presents with nausea vomiting and evidence of partial intestinal obstruction. Her clinical picture was felt to be more compatible with slow transit constipation due to pain medication. She was treated with RELISTOR and metoclopramide. She had a prompt response and started having multiple bowel movements. A small bowel follow-through was performed yesterday and she had passage of large volume of stool.Her gastrojejunal and jejunal jejunal anastomosis are intact. The contrast has cleared her small bowel with residual contrast in the colon. Patient is tolerating soft diet without difficulty. She is stable for discharge home. Discharge diagnosis: Constipation due to chronic narcotic analgesics Secondary discharge diagnosis: Chronic opioid dependency Protein calorie malnutrition Chronic depression Reason for admission: Partial small bowel obstruction Procedures: None Pertinent studies/significant findings: Upper GI with small bowel follow-through Complications: None Time Spent with Patient Time attestation: Total time spent providing and/or coordinating discharge services: Time spent: Less than 30 minutes Physical Examination Vital Signs Vital signs: Temp Pulse Resp BP Pulse Ox O2 Del Method 97.2 F 88 16 112/76 95 Room Air 05/15/22 07:37 05/15/22 07:14 05/15/22 07:14 05/15/22 07:14 05/15/22 07:37 05/15/22 07:37 General physical appearance General physical exam: no distress, no pain, cachectic and chronically ill Eyes Eye exam: PERRL and normal ocular movement ENT ENT exam: normal mucosa and no hearing loss Head Head exam IM: Present atraumatic, normal inspection and normocephalic Neck Neck exam: no masses, no bruits, trachea midline, no lymphadenopathy and no venous distension Cardiovascular Cardiovascular exam IM: Present normal rate and rhythm, RRR, +S1 and +S2; Absent JVD Respiratory Respiratory exam: normal expansion, normal respiratory effort and clear to auscultation Abdomen Abdomen: Present soft, tender (Mild tenderness), bowel sounds (Normal bowel soun ds) and wound (1 x 1 cm open area lower abdominal incision); Absent distended Integumentary Integumentary: Present no rash, no growths and no abnormal pigmentation Neurologic Neurologic: Present normal coordination and normal sensation Musculoskeletal Musculoskeletal: Present normal gait and normal posture Psychiatric Psychiatric: Present oriented to time, oriented to person, oriented to place, speech is normal and memory intact Discharge Plan Patient/Caregiver Discharge Instructions Activity: increase activity as tolerated Diet: Regular Diet Prescriptions: No Action sucralfate [Carafate] 1 gram tablet 1 g PO .as needed Qty: 120 3RF albuterol sulfate 90 mcg/actuation HFA aerosol inhaler 1 inh inhalation ONCE PRN (Reason: Shortness Of Breath) nicotine 21 mg/24 hr patch 24 hour 1 patch transdermal Q24H venlafaxine 150 mg capsule,extended release 24hr 150 mg PO QPM ondansetron 4 mg tablet,disintegrating 4 mg translingual PRN PRN (Reason: Nausea) pregabalin 100 mg capsule 300 mg PO QPM pantoprazole [Protonix] 40 mg tablet,delayed release (DR/EC) 40 mg PO QAM clonazepam 1 mg tablet 1 mg PO QDP PRN (Reason: Anxiety) buprenorphine-naloxone [Suboxone] 8-2 mg film 3 film sublingual TID oxycodone-acetaminophen [Endocet] 10-325 mg tablet 1 tab PO Q4H PRN (Reason: Pain) Qty: 30 0RF pantoprazole 40 mg tablet,delayed release (DR/EC) 40 mg PO BIDAC Qty: 60 0RF Prescription drug monitoring program results: PDMP not reviewed Follow Up Plan Follow up with: Marleny Mckay MD [Physician] - (Schedule follow-up appointment after 14 June) Carlos Stubbs ARNP [Primary Care Provider] - Patient Disposition: Home, Self-Care Plan of Treatment: Please use MiraLAX 3-4 times daily Prognosis: Good Rehab Potential: Good I certify that the patient requires SNF services: No Overall status at discharge: patient is progressing back to baseline Pending Pending Pending: Diet GI Soft/Transitional Start Talia May 14 1644 Acetaminophen (Acetaminophen 325 Mg Tablet) 650 mg PO Q6HP PRN; Protocol PRN Reason: Per Pain Protocol/Fever > 101 Last Admin: 05/14/22 04:42 Dose: 650 mg Documented By: DARRION Clonazepam (Clonazepam 1 Mg Tablet) 1 mg PO DAILYP PRN PRN Reason: Anxiety Last Admin: 05/14/22 20:50 Dose: 1 mg Documented By: CELESTINE Hydromorphone HCl (Hydromorphone 1 Mg/Ml Syringe) 1 mg IV Q2HP PRN; Protocol PRN Reason: Per Pain Protocol Last Admin: 05/15/22 10:00 Dose: 1 mg Documented By: Admin: 05/15/22 07:05 Dose: 1 mg Documented By: Admin: 05/15/22 04:24 Dose: 1 mg Documented By: Admin: 05/15/22 02:00 Dose: 1 mg Documented By: Admin: 05/14/22 23:05 Dose: 1 mg Documented By: Admin: 05/14/22 19:30 Dose: 1 mg Documented By: Admin: 05/14/22 16:42 Dose: 1 mg Documented By: Admin: 05/14/22 13:31 Dose: 1 mg Documented By: Admin: 05/14/22 11:34 Dose: 1 mg Documented By: KAVITHA Lactated Ringer's (Lactated Ringers) 1,000 mls @ 75 mls/hr IV .[id number] [facility] Last Admin: 05/15/22 07:15 Dose: Not Given Documented By: Infusion: 05/14/22 17:10 Dose: 0 mls/hr Documented By: Admin: 05/14/22 17:02 Dose: Not Given Documented By: Admin: 05/14/22 04:42 Dose: 75 mls/hr Documented By: DARRION Ketorolac Tromethamine (Ketorolac 30 Mg/Ml Vial) 15 mg IV Q6HP PRN PRN Reason: Pain Stop: 05/16/22 04:29 Last Admin: 05/15/22 07:29 Dose: 15 mg Documented By: Admin: 05/14/22 04:43 Dose: 15 mg Documented By: DARRION Methylnaltrexone Vaughn (Methylnaltrexone Vaughn 12 Mg/0.6 Ml Syringe) 12 mg SQ DAILY [facility] Stop: 05/16/22 09:01 Last Admin: 05/15/22 09:53 Dose: 12 mg Documented By: Admin: 05/14/22 11:32 Dose: 12 mg Documented By: KAVITHA Metoclopramide HCl (Metoclopramide 10 Mg/2 Ml Vial) 10 mg IV Q6 [facility] Last Admin: 05/15/22 06:04 Dose: 10 mg Documented By: Admin: 05/15/22 02:08 Dose: 10 mg Documented By: Admin: 05/14/22 16:42 Dose: 10 mg Documented By: Admin: 05/14/22 11:32 Dose: 10 mg Documented By: KAVITHA Nicotine (Nicotine 21 Mg Patch) 21 mg TOPICAL Q24H [facility] Last Admin: 05/14/22 13:30 Dose: 21 mg Documented By: KAVITHA Ondansetron HCl (Ondansetron 4 Mg/2 Ml Vial) 4 mg IV Q6HP PRN PRN Reason: Nausea And Vomiting Last Admin: 05/14/22 04:43 Dose: 4 mg Documented By: DARRION Oxycodone/Acetaminophen (Oxycodone/Apap 10/325mg Tablet) 1 tab PO Q4H PRN; Protocol PRN Reason: Pain Last Admin: 05/15/22 09:06 Dose: 1 tab Documented By: ASMMore Admin: 05/15/22 02:51 Dose: 1 tab Documented By: Admin: 05/14/22 21:20 Dose: 1 tab Documented By: Admin: 05/14/22 13:30 Dose: 1 tab Documented By: KAVITHA Pantoprazole Sodium (Pantoprazole 40 Mg Tablet) 40 mg PO BIDAC [facility] Last Admin: 05/15/22 07:05 Dose: 40 mg Documented By: Admin: 05/14/22 16:42 Dose: 40 mg Documented By: KAVITHA Polyethylene Glycol (Polyethylene Glycol 3350 17 Gm Packet) 17 gm PO QID [facility] Last Admin: 05/15/22 09:53 Dose: 17 gm Documented By: Admin: 05/14/22 21:21 Dose: 17 gm Documented By: Admin: 05/14/22 18:15 Dose: 17 gm Documented By: CELESTINE Pregabalin (Pregabalin 150 Mg Capsule) 300 mg PO QPM [facility] Last Admin: 05/14/22 20:50 Dose: 300 mg Documented By: CELESTINE Sodium Chloride (0.9 % Sodium Chloride 10 Ml Syringe) 10 ml IV Q8 [facility] Last Admin: 05/15/22 06:04 Dose: 10 ml Documented By: Admin: 05/14/22 21:26 Dose: 10 ml Documented By: Admin: 05/14/22 14:42 Dose: Not Given Documented By: Admin: 05/14/22 11:37 Dose: 10 ml Documented By: Admin: 05/14/22 10:11 Dose: 10 ml Documented By: Admin: 05/14/22 07:52 Dose: 10 ml Documented By: Admin: 05/14/22 05:20 Dose: Not Given Documented By: JASON Sucralfate (Sucralfate 1 Gm Tablet) 1 gm PO QID [facility] Last Admin: 05/15/22 09:53 Dose: 1 gm Documented By: Admin: 05/14/22 20:50 Dose: 1 gm Documented By: Admin: 05/14/22 16:42 Dose: 1 gm Documented By: Admin: 05/14/22 13:30 Dose: 1 gm Documented By: KAVITHA Venlafaxine HCl (Venlafaxine 150 Mg Cap.Xl.24h) 150 mg PO QPM [facility] Last Admin: 05/14/22 20:50 Dose: 150 mg Documented By: CELESTINE Shift Summary 05/15/22 05:15 Shift Summary by Geneva Ignacio Assumed Pt care @ 1830. Pt is alert and oriented x 4 and in no apparent signs and symptoms of distress. Pt reports pain and anxiety, PRN Dilaudid Q2hrs all night, Percocet x 1 @ 0251 with Klonopin x1 @ 2049 was administered. Call light within reach and whiteboard updated. Pt on RA with saturations in the 90's. Pt tolerated ambulation to and from the bathroom independently with steady gait. Pt abdominal dressing changed x1 and reeducated patient on the need to leave dressing in place and hand washing. Pt PIV on RFA is patent and saline locked at this time. No acute events all night. Initialized on 05/15/22 05:15 - END OF NOTE
[2022-05-15] MEDS: NICOTINE 21 MG PATCH TOPICAL SCH (12:15)
== END 2022-05-15 13:40 | disposition home or self-care (01) | DRG 391 ==
LOC: ED 04:21 → MEDSUR 05:03
PROVIDERS: ADMIT Family Medicine Adult Medicine; ATTEND Family Medicine Adult Medicine

== ENCOUNTER 2022-05-20 19:43 | Observation (INO) ==
[2022-05-20 21:14] LABS: Basophils # (Auto) 0.04 K/mcL (0.00-0.30); Basophils % (Auto) 0.5 % (0.0-2.0); Hematocrit 33.8 % (34.1-44.9); Hemoglobin 10.2 g/dL (11.2-15.7); Lymphocytes % (Auto) 24.8 % (15.5-49.0); Mean Cell Volume 84.5 fL (80.0-100.0); Mean Corpuscular HGB Conc 30.2 g/dL (31.0-36.0); Mean Platelet Volume 9.4 fL (8.8-12.5); Monocytes # (Auto) 0.46 K/mcL (0.10-0.90); Monocytes % (Auto) 5.7 % (1.0-12.0); Neutrophils % (Auto) 63.6 % (38.0-78.0); Platelet Count 367 K/mcL (140-440); Red Cell Distribution Width 21.4 % (11.5-14.5); WBC 8.1 K/mcL (4.5-11.0)
[2022-05-20] MEDS ORDERED: KETOROLAC 30 MG/ML VIAL IV ONE (21:26)
[2022-05-20] MEDS ORDERED: 0.9 % SODIUM CHLORIDE 1,000 ML IV ONE (21:40)
[2022-05-20] MEDS ORDERED: HYDROmorphone 0.5 MG/0.5 ML SYRINGE IV ONE (21:45)
[2022-05-20 21:54] LABS: ALT/SGPT 13 U/L (<40); AST/SGOT 20 U/L (<32); Albumin 3.4 gm/dL (3.2-5.2); Alkaline Phosphatase 95 U/L (39-117); Bilirubin,Direct < 0.2 mg/dL (0-0.3); Bilirubin,Total < 0.2 mg/dL (0.1-1.0); Globulin 2.4 gm/dL (2.2-3.7)
--- NOTE | 2022-05-20 22:18 | Emergency Department Note ---
HPI General Chief complaint: Abdominal Pain Stated complaint: post op abdominal pain Time Seen by Provider: 05/20/22 20:06 Source: patient Mode of arrival: ambulatory Limitations: no limitations History of Present Illness HPI Narrative: Narrative: This is a 41-year-old female who presents to the emergency department with abdominal pain and nausea. The of last month April 2022 the patient had resection of gastrojejunal anastomosis with formation of Desean-en-Y gastrojejunostomy by Dr. Mckay. She was admitted last week for slow transit constipation dual bowel obstruction thought to be secondarily related to opioid use. She was seen in the emergency department yesterday for abdominal pain. The patient does state that she has continued pain she has had a few small bowel movements there is associated nausea without vomiting. Related Data Home Medications Medication Instructions Recorded Confirmed albuterol sulfate 90 mcg/actuation 1 inh inhalation ONCE PRN 05/17/20 05/14/22 aerosol inhaler Shortness Of Breath nicotine 21 mg/24 hr daily 1 patch transdermal Q24H 05/17/20 05/14/22 transdermal patch venlafaxine 150 mg 150 mg PO QPM 05/17/20 05/14/22 capsule,extended release 24 hr ondansetron 4 mg disintegrating 4 mg translingual PRN PRN Nausea 03/19/22 05/14/22 tablet pantoprazole 40 mg tablet,delayed 40 mg PO QAM 03/19/22 05/14/22 release (Protonix) pregabalin 100 mg capsule 300 mg PO QPM 03/19/22 05/14/22 buprenorphine 8 mg-naloxone 2 mg 3 film sublingual TID 04/22/22 05/15/22 sublingual film (Suboxone) clonazepam 1 mg tablet 1 mg PO QDP PRN Anxiety 05/14/22 05/14/22 Previous Rx's Medication Instructions Recorded oxycodone-acetaminophen 10 mg-325 1 tab PO Q4H PRN Pain #30 tabs 04/30/22 mg tablet (Endocet) pantoprazole 40 mg tablet,delayed 40 mg PO BIDAC #60 tabs 04/30/22 release sucralfate 1 gram tablet (Carafate) 1 g PO .as needed #120 tabs 05/01/22 Allergies Allergy/AdvReac Type Severity Reaction Status Date / Time azithromycin Allergy Severe Anaphylaxis Verified 05/20/22 19:46 Review of Systems ROS ROS Narrative: Narrative: All systems ED: reviewed and negative except as stated. [facility] Narrative Patient History Narrative: Narrative: Medical/Surgical/Family History All Active Problems (Updated 05/21/22 @ 02:41 by Kingsley Tellez MD) Constipation (Acute) Constipation (Acute) Constipation due to pain medication therapy (Acute) Small bowel obstruction, partial (Acute) Partial small bowel obstruction (Acute) Nausea & vomiting (Acute) Abdominal pain (Acute) Constipation by delayed colonic transit (Acute) Gastrojejunal loop obstruction (Acute) Iron deficiency anemia (Chronic) Opioid dependence (Chronic) Severe protein-calorie malnutrition (Chronic) GERD (gastroesophageal reflux disease) (Chronic) Endometriosis (Chronic) Closed fracture of cervical spine (Chronic) Chronic post-traumatic stress disorder (PTSD) (Chronic) Pyloric obstruction (Chronic) Left upper quadrant pain (Chronic) Anterior chest wall pain (Chronic) Gastroparesis (Chronic) Arthritis (Chronic) Recurrent major depression (Chronic) Abdominal pain (Chronic) Gastric ulcer (Chronic) Medical History Abdominal pain Anterior chest wall pain Arthritis Chronic post-traumatic stress disorder (PTSD) Closed fracture of cervical spine Endometriosis Gastric ulcer With perforation Gastroparesis GERD (gastroesophageal reflux disease) Iron deficiency anemia Left upper quadrant pain Opioid dependence Pyloric obstruction Recurrent major depression Severe protein-calorie malnutrition Surgical History H/O esophagogastroduodenoscopy (10/30/14) History of (~04/13/00) 10/05/2005 History of esophagogastroduodenoscopy (EGD) (06/12/21) [facility], completely obstructing non-bleeding gastric ulcer, GI unable to advance endoscope past pyloric ulcer. EGD also done 05/29/21 History of exploratory laparotomy (06/13/21) [facility]hea Otto, [place], with bilateral truncal vagotomy, antrectomy and Desean-en-Y retrocolic gastrojejunostomy History of surgery Abdominal wall hernia procedure - multiple, most recent February 2021 History of surgery Closure of perforated gastric ulcer - x2, most recent 02/2021 perforated gastric ulcer with gastric outlet obstruction History of surgery 04/24/2022-Resection of gastrojejunal anastomosis with formation of Desean-en-Y gastrojejunostomy Family History Father Diabetes mellitus Heart disease Depressive disorder High blood pressure Anxiety disorder Myocardial infarction Mother Diabetes mellitus Heart disease Alcohol abuse Dementia Daughter ADHD (attention deficit hyperactivity disorder) Social History Smoking Status: Current some day smoker Alcohol Intake Frequency: does not drink Substance Use: does not use Exam Narrative Narrative: Narrative: Vital signs noted General: Awake. Alert. No distress. HEENT: NCAT PERRL EOMI. No conjunctivitis. Membranes moist. Neck: Supple, trachea midline Cardiovascular: RRR. No murmur. No rubs. No gallops. Respiratory: No respiratory distress. Breath sounds equal. Lungs clear. Gastrointestinal: Soft. Midepigastric and left upper quadrant tenderness to palpation Musculoskeletal: No pain. No soft tissue swelling. Good ROM. No signs injury Skin: Midline surgical scar with inferior dehiscence Neurologic: Alert and oriented x3 moves all extremities equally and fully, speech is fluent face is symmetric General Limitations: no limitations Course Vital Signs Vital signs: Vital Signs Temperature 96.9 F L 05/20/22 19:43 Pulse Rate 92 H 05/20/22 19:43 Respiratory Rate 20 05/20/22 19:43 Blood Pressure 119/76 05/20/22 19:43 Pulse Oximetry (%) 100 05/20/22 19:43 Oxygen Delivery Method Room Air 05/20/22 19:43 Temperature 97.1 F 05/21/22 00:39 Pulse Rate 64 05/21/22 00:39 Respiratory Rate 14 05/21/22 00:39 Blood Pressure 110/80 05/21/22 00:39 Pulse Oximetry (%) 100 05/21/22 00:39 Oxygen Delivery Method Room Air 05/21/22 00:39 MDM MDM Narrative Medical decision making narrative: Narrative: Patient presents with continued abdominal pain. She has a complicated surgical history and has been following with Dr. Mckay she returns to the emergency department after being seen yesterday with continued pain. Patient was given intravenous fluids and intravenous Toradol. This did not have much effect on her pain she was given intravenous Dilaudid. I did speak with Dr. Mckay he recommend bringing her into the hospital. I have reviewed CT scan from yesterday do not feel that additional imaging at this time is warranted. CBC shows a chronic anemia. No significant derangements on patient's chemistry and hepatic function panel. Lab Data 05/20/22 20:30 Labs: Lab Results 05/20/22 05/20/22 Range/Units 20:30 20:30 WBC 8.1 (4.5-11.0) K/mcL RBC 4.00 (3.59-5.38) M/mcL Hgb 10.2 L (11.2-15.7) g/dL Hct 33.8 L (34.1-44.9) % MCV 84.5 (80.0-100.0) fL MCH 25.5 L (26.0-34.0) pg MCHC 30.2 L (31.0-36.0) g/dL RDW 21.4 H (11.5-14.5) % Plt Count 367 (140-440) K/mcL MPV 9.4 (8.8-12.5) fL Immature Gran % (Auto) 0.4 (0.0-0.5) % Neut % (Auto) 63.6 (38.0-78.0) % Lymph % (Auto) 24.8 (15.5-49.0) % Hettinger % (Auto) 5.7 (1.0-12.0) % Eos % (Auto) 5.0 (0.0-7.0) % Baso % (Auto) 0.5 (0.0-2.0) % Lymph # (Auto) 2.00 (1.50-4.80) K/mcL Hettinger # (Auto) 0.46 (0.10-0.90) K/mcL Eos # (Auto) 0.40 (0.00-0.70) K/mcL Baso # (Auto) 0.04 (0.00-0.30) K/mcL Immature Gran # 0.03 (0.00-0.05) K/mcl Absolute Neutrophils 5.15 (1.80-8.00) K/mcL VBG Lactic Acid 0.9 (0.5-2.0) mmol/L Total Bilirubin < 0.2 (0.1-1.0) mg/dL Direct Bilirubin < 0.2 (0-0.3) mg/dL AST 20 (<32) U/L ALT 13 (<40) U/L Alkaline Phosphatase 95 (39-117) U/L Total Protein 5.8 L (5.9-8.4) gm/dL Albumin 3.4 (3.2-5.2) gm/dL Globulin 2.4 (2.2-3.7) gm/dL Lipase 30 (7-60) U/L Discharge Plan Patient/Caregiver Discharge Instructions Pt seen by DIRECTOR OF ONCOLOGY/PA only: No Clinical Impression: Constipation Patient Disposition: Xfer As Outpt/Obs ([facility]) Condition: Fair Discharge Date/Time: 05/21/22 00:07
[2022-05-20] MEDS ORDERED: ONDANSETRON 4 MG/2 ML VIAL IV PRN (22:29)
[2022-05-20] MEDS ORDERED: PROMETHAZINE 25 MG/ML VIAL IV PRN (22:29)
[2022-05-20] MEDS ORDERED: traZODone HCL 50 MG TABLET PO PRN (22:35)
--- NOTE | 2022-05-20 23:05 | General Surg History&Physical ---
HPI History of Present Illness Patient information: Note initiated : 05/20/22 at 11:04 pm Service Date, if different from initiated Date: [] Patient: Priscila Forrest Lashon a 41 y/o F admitted on for post op abdominal pain. Chief Complaint: [] Chief complaint: Slow transit constipation History of present illness: Ms. Forrest is a 41 year old F admitted with suspected slow transit constipation and partial small bowel obstruction. She has a history of chronic narcotic use and is on chronic Suboxone. She was recently discharged from the hospital with similar symptoms. She has had increasing epigastric pain and lower abdominal pain with reflux type symptoms and heartburn. She has been seen in the emergency room twice. She has not responded to home measures and is admitted for more aggressive treatment. PFSH PFSH All Active Problems Constipation (Acute) Constipation (Acute) Constipation due to pain medication therapy (Acute) Small bowel obstruction, partial (Acute) Partial small bowel obstruction (Acute) Nausea & vomiting (Acute) Abdominal pain (Acute) Constipation by delayed colonic transit (Acute) Gastrojejunal loop obstruction (Acute) Iron deficiency anemia (Chronic) Opioid dependence (Chronic) Severe protein-calorie malnutrition (Chronic) GERD (gastroesophageal reflux disease) (Chronic) Endometriosis (Chronic) Closed fracture of cervical spine (Chronic) Chronic post-traumatic stress disorder (PTSD) (Chronic) Pyloric obstruction (Chronic) Left upper quadrant pain (Chronic) Anterior chest wall pain (Chronic) Gastroparesis (Chronic) Arthritis (Chronic) Recurrent major depression (Chronic) Abdominal pain (Chronic) Gastric ulcer (Chronic) Medical History Abdominal pain Anterior chest wall pain Arthritis Chronic post-traumatic stress disorder (PTSD) Closed fracture of cervical spine Endometriosis Gastric ulcer With perforation Gastroparesis GERD (gastroesophageal reflux disease) Iron deficiency anemia Left upper quadrant pain Opioid dependence Pyloric obstruction Recurrent major depression Severe protein-calorie malnutrition Surgical History H/O esophagogastroduodenoscopy (10/30/14) History of (~04/13/00) 10/05/2005 History of esophagogastroduodenoscopy (EGD) (06/12/21) [facility], completely obstructing non-bleeding gastric ulcer, GI unable to advance endoscope past pyloric ulcer. EGD also done 05/29/21 History of exploratory laparotomy (06/13/21) [facility] [place], [place], with bilateral truncal vagotomy, antrectomy and Desean-en-Y retrocolic gastrojejunostomy History of surgery Abdominal wall hernia procedure - multiple, most recent February 2021 History of surgery Closure of perforated gastric ulcer - x2, most recent 02/2021 perforated gastric ulcer with gastric outlet obstruction History of surgery 04/24/2022-Resection of gastrojejunal anastomosis with formation of Desean-en-Y gastrojejunostomy Family History Father Diabetes mellitus Heart disease Depressive disorder High blood pressure Anxiety disorder Myocardial infarction Mother Diabetes mellitus Heart disease Alcohol abuse Dementia Daughter ADHD (attention deficit hyperactivity disorder) Social History household members: alone marital status: single education level: college occupational status: employed sexually active: No smoking status: Current some day smoker alcohol intake frequency: does not drink substance use type: does not use dina/sabianism: Hindu seatbelt use: always working smoke detector in home: Yes firearms in home: Yes MEDS/ALLERGIES Home Medications and Allergies Home Medications Medication Instructions Recorded Confirmed Type albuterol sulfate 90 mcg/actuation 1 inh inhalation ONCE PRN 05/17/20 05/21/22 History aerosol inhaler Shortness Of Breath nicotine 21 mg/24 hr daily 1 patch transdermal Q24H 05/17/20 05/21/22 History transdermal patch venlafaxine 150 mg 150 mg PO QPM 05/17/20 05/21/22 History capsule,extended release 24 hr ondansetron 4 mg disintegrating 4 mg translingual PRN PRN Nausea 03/19/22 05/21/22 History tablet pregabalin 100 mg capsule 300 mg PO QPM 03/19/22 05/21/22 History buprenorphine 8 mg-naloxone 2 mg 3 film sublingual TID 04/22/22 05/21/22 History sublingual film (Suboxone) oxycodone-acetaminophen 10 mg-325 1 tab PO Q4H PRN Pain #30 tabs 04/30/22 05/21/22 Rx mg tablet (Endocet) pantoprazole 40 mg tablet,delayed 40 mg PO BIDAC #60 tabs 04/30/22 05/21/22 Rx release sucralfate 1 gram tablet (Carafate) 1 g PO .as needed #120 tabs 05/01/22 05/21/22 Rx clonazepam 1 mg tablet 1 mg PO QDP PRN Anxiety 05/14/22 05/21/22 History metoclopramide HCl 10 mg tablet 10 mg PO Q6H PRN nausea and 05/22/22 Rx vomiting #120 tabs Allergies Allergy/AdvReac Type Severity Reaction Status Date / Time azithromycin Allergy Severe Anaphylaxis Verified 05/20/22 19:46 Physical Examination Vital Signs Vital signs: Temp Pulse Resp BP Pulse Ox O2 Del Method 96.9 F L 72 12 107/80 97 Room Air 05/20/22 19:43 05/20/22 22:31 05/20/22 22:30 05/20/22 22:31 05/20/22 20:15 05/20/22 19:43 General physical appearance General physical exam: no distress, moderate pain, cachectic and chronically ill Eyes Eye exam: PERRL and normal ocular movement ENT ENT exam: normal mucosa, no congestion and poor jail Head Head exam IM: Present atraumatic, normal inspection and normocephalic Neck Neck exam: no masses, no bruits, trachea midline, no lymphadenopathy and no venous distension Cardiovascular Cardiovascular exam IM: Present normal rate and rhythm, RRR, +S1 and +S2; Absent JVD Respiratory Respiratory exam: normal expansion, normal respiratory effort and clear to auscultation Abdomen Abdomen: Present soft, tender (Mild midline tenderness) and surgical scars (Healing surgical incision); Absent distended Integumentary Integumentary: Present no rash, no growths and no abnormal pigmentation Neurologic Neurologic: Present normal coordination and normal sensation Musculoskeletal Musculoskeletal: Present normal gait and normal posture Psychiatric Psychiatric: Present oriented to time, oriented to person, oriented to place, s peech is normal and memory intact Results Labs 05/20/22 20:30 Labs: Abnormal lab results 05/20/22 05/20/22 Range/Units 20:30 20:30 Hgb 10.2 L (11.2-15.7) g/dL Hct 33.8 L (34.1-44.9) % MCH 25.5 L (26.0-34.0) pg MCHC 30.2 L (31.0-36.0) g/dL RDW 21.4 H (11.5-14.5) % Total Protein 5.8 L (5.9-8.4) gm/dL Diabetes panel 05/20/22 Range/Units 20:30 AST 20 (<32) U/L ALT 13 (<40) U/L Alkaline Phosphatase 95 (39-117) U/L Total Protein 5.8 L (5.9-8.4) gm/dL Albumin 3.4 (3.2-5.2) gm/dL Calcium panel 05/20/22 Range/Units 20:30 Albumin 3.4 (3.2-5.2) gm/dL Adrenal panel 05/20/22 Range/Units 20:30 Total Bilirubin < 0.2 (0.1-1.0) mg/dL AST 20 (<32) U/L ALT 13 (<40) U/L Alkaline Phosphatase 95 (39-117) U/L Total Protein 5.8 L (5.9-8.4) gm/dL Albumin 3.4 (3.2-5.2) gm/dL All other labs normal. A/P Assessment and plan (1) Constipation due to pain medication therapy: Status: Acute (2) Small bowel obstruction, partial: Status: Acute (3) Opioid dependence: Status: Chronic (4) Severe protein-calorie malnutrition: Status: Chronic (5) GERD (gastroesophageal reflux disease): Status: Chronic (6) Gastric ulcer: Status: Chronic Comment: With perforation (7) Chronic post-traumatic stress disorder (PTSD): Status: Chronic Plan RELISTOR 12 mg subcu daily Metoclopramide 10 mg IV every 6 hours Continue Suboxone Low-dose hydromorphone 8 every 4 hours intervals Increase MiraLAX to 3 times daily Continue clonazepam, pregabalin, venlafaxine Sepsis Sepsis Identified: No Time Spent With Patient Time: Total time spent is greater than 50% in coordination of care (as documented) at patient's floor/unit and/or counseling patient:
[2022-05-20] MEDS: HYDROmorphone 0.5 MG/0.5 ML SYRINGE IV PRN (23:18)
[2022-05-21] MEDS: 0.9 % SODIUM CHLORIDE 1,000 ML IV SCH ×3 (00:24→17:54)
[2022-05-21] MEDS: METOCLOPRAMIDE 10 MG/2 ML VIAL IV SCH ×4 (00:24→17:49)
[2022-05-21] MEDS: SUCRALFATE 1 GM/10 ML ORAL.SUSP PO SCH ×4 (00:24→17:49)
[2022-05-21] MEDS: HYDROmorphone 0.5 MG/0.5 ML SYRINGE IV PRN (06:09)
[2022-05-21] MEDS: 0.9 % SODIUM CHLORIDE 10 ML SYRINGE IV SCH ×3 (06:10→21:22)
[2022-05-21] MEDS: PANTOPRAZOLE 40 MG VIAL IV SCH ×2 (07:18→17:49)
[2022-05-21 07:22] LABS: Appearance,Urine CLEAR (Clear); Bilirubin,Urine Negative (Negative); Color,Urine STRAW; Culture Indicated,Urine No; Glucose,Urine (UA) Negative (Negative); Ketones,Urine Negative (Negative); Leukocyte Esterase,Urine Negative /uL (Negative); Nitrate,Urine Negative (Negative); Protein,Urine Negative (Negative); Specific Gravity,Urine 1.009 (1.000-1.035); Urine Blood Negative (Negative); Urobilinogen,Urine Negative
--- NOTE | 2022-05-21 11:16 | XRay Report ---
HISTORY: Postoperative abdominal pain, constipation FINDINGS: The stomach has decompressed since the time of the prior CT done on 05/19/22. There is a loop of small intestine in the left mid abdomen which measures 2.4 cm in thickness. The lutz are mildly nodular with thickened folds. The dilated segment of all bowel, previously seen in the left upper pelvis has decompressed. Moderate amount of stool is seen in the splenic flexure. There is no free intra-abdominal air. There are also anastomotic sutures around the stomach and laterally in the left mid abdomen. Incidentally noted is an ununited fracture laterally on the left ninth rib. IMPRESSION: Nonspecific segment of inflamed small bowel in the left mid abdomen. Resolution of previously seen distended stomach and small bowel at the site of the anastomosis Interpreted and Authenticated by: Pato Hinson 05/21/22
[2022-05-21 11:32] LABS: Amphetamine Screen,Urine None detected; Barbiturate Screen,Urine None detected; Benzodiazepines Screen,Urine Suspect positive; Cannabinoid Screen,Urine None detected; Cocaine Screen,Urine None detected; Opiate Screen,Urine None detected; Oxycodone, Urine Screen None detected; Phencyclidine Screen,Urine None detected
[2022-05-21] MEDS: METHYLNALTREXONE BROMIDE 12 MG/0.6 ML SYRINGE SQ SCH (11:45)
[2022-05-21] MEDS: ENOXAPARIN 40 MG/0.4 ML SYRINGE SQ SCH (11:45)
[2022-05-21] MEDS: NICOTINE 21 MG PATCH TOPICAL SCH (11:46)
[2022-05-21] MEDS: MAGNESIUM HYDROXIDE 30 ML ORAL.SUSP PO SCH ×2 (11:56→21:21)
[2022-05-21] MEDS: DOCUSATE SODIUM 100 MG CAPSULE PO SCH ×2 (11:57→21:21)
[2022-05-21] MEDS: VENLAFAXINE 150 MG CAP.XL.24H PO SCH (11:57)
[2022-05-21] MEDS: clonazePAM 1 MG TABLET PO SCH ×2 (11:57→21:21)
[2022-05-21] MEDS: PREGABALIN 150 MG CAPSULE PO SCH ×2 (11:57→21:21)
[2022-05-21] MEDS: BUPRENORPHINE/NALOXONE 4MG/1MG ORAL FILM SL SCH ×3 (11:58→21:20)
--- NOTE | 2022-05-21 16:22 | General Surgery Progress Note ---
SUBJECTIVE Subjective Patient information: Note initiated : 05/21/22 at 4:16 pm Service Date, if different from initiated Date: [] Patient: Priscila Forrest 41 y/o F admitted on 05/20/22 for post op abdominal pain. Chief Complaint: [] Principal diagnosis: Opioid-induced constipation; chronic pain syndrome; narcotic dependency. Interval history: Patient is clinically better. She is complaining of less pain though she requests narcotics on schedule. Discussed with her the need to have urine drug screen. She complains of hunger and her diet will be advanced. She has had multiple bowel movements according to her but these have not been witnessed by nursing staff. Constitutional Vitals: Vital Signs Temp Pulse Resp BP Pulse Ox O2 Del Method 97.9 F 80 14 104/59 93 Room Air 05/21/22 15:49 05/21/22 15:49 05/21/22 15:49 05/21/22 15:49 05/21/22 15:49 05/21/22 15:49 Period Temp Pulse Resp BP Sys/Cosme Pulse Ox O2 Del Method O2 Flow Rate Last 24 Hr 96.9 F-97.9 F 60-92 02-27 98-119/59-84 93-100 Room Air-Room Air Intake and Output 05/21/22 05/21/22 05/21/22 03:59 11:59 19:59 Intake Total 1000 1000 1320 Output Total 900 800 Balance 1000 100 520 Weight 110 lb 2 oz Intake & Output: Intake & Output 05/21/22 05/21/22 05/21/22 03:59 11:59 19:59 Intake Total 1000 1000 1320 Output Total 900 800 Balance 1000 100 520 Weight 110 lb 2 oz Intake: IV 1000 1000 Sodium Chloride 0.9% 1,000 ml @ 1000 1000 100 mls/hr IV .Q10H YARON Rx#: [id number] Oral 0 1320 Output: Void Amount 900 800 Other: Urine Appearance Clear Clear Urine Color Yellow Yellow Pale Urine Odor Normal Normal Stool Size Small Stool Color Green Stool Consistency Soft Loose # Bowel Movements 1 General appearance: no acute distress and thin Exam: Patient is very sleepy and withdrawn. She falls asleep when she is being examined Eye Eye exam: Present PERRL ENT ENT exam: Present mucous membranes moist, normal exam and normal oropharynx Neck Neck exam: Present full ROM and normal inspection Respiratory Respiratory exam: Present CTAB Cardiovascular Cardiovascular exam: Present normal rate and rhythm, RRR, +S1 and +S2 GI/Abdominal GI/Abdominal exam: Present soft and tenderness (Minimal tenderness); Absent distended Extremities Exam Extremities exam: Present normal inspection and neurovascular intact Neurological Exam Neurological exam: Present oriented X3; Absent motor sensory deficit Psychiatric Psychiatric exam: Present normal affect and normal mood A/P Assessment and plan (1) Constipation due to pain medication therapy: Status: Acute (2) Partial small bowel obstruction: Status: Acute (3) Opioid dependence: Status: Chronic (4) GERD (gastroesophageal reflux disease): Status: Chronic Plan Continue present medicine Make plans for discharge tomorrow Advance to regular diet Time Spent With Patient Time: Total time spent is greater than 50% in coordination of care (as documented) at patient's floor/unit and/or counseling patient:
[2022-05-21] MEDS ORDERED: ACETAMINOPHEN 500 MG TABLET PO ONE (18:54)
[2022-05-21] MEDS: ACETAMINOPHEN 500 MG TABLET PO PRN ×2 (18:56→23:10)
[2022-05-21 19:01] LABS: Amphetamine Screen,Urine None detected; Barbiturate Screen,Urine None detected; Benzodiazepines Screen,Urine Suspect positive; Cannabinoid Screen,Urine None detected; Cocaine Screen,Urine None detected; Opiate Screen,Urine None detected; Oxycodone, Urine Screen None detected; Phencyclidine Screen,Urine None detected
[2022-05-21] MEDS ORDERED: SENNOSIDES 1 TABLET PO SCH (21:00)
[2022-05-22] MEDS: METOCLOPRAMIDE 10 MG/2 ML VIAL IV SCH ×3 (00:41→12:22)
[2022-05-22] MEDS: SUCRALFATE 1 GM/10 ML ORAL.SUSP PO SCH ×3 (00:42→11:54)
[2022-05-22] MEDS: HYDROmorphone 0.5 MG/0.5 ML SYRINGE IV PRN ×3 (00:46→10:23)
[2022-05-22] MEDS: 0.9 % SODIUM CHLORIDE 1,000 ML IV SCH ×2 (04:09→13:55)
[2022-05-22] MEDS: ACETAMINOPHEN 500 MG TABLET PO PRN ×2 (04:12→08:26)
[2022-05-22] MEDS: 0.9 % SODIUM CHLORIDE 10 ML SYRINGE IV SCH ×2 (05:34→12:44)
[2022-05-22] MEDS: PANTOPRAZOLE 40 MG VIAL IV SCH (07:45)
[2022-05-22] MEDS: ENOXAPARIN 40 MG/0.4 ML SYRINGE SQ SCH (09:09)
[2022-05-22] MEDS: MAGNESIUM HYDROXIDE 30 ML ORAL.SUSP PO SCH (09:09)
[2022-05-22] MEDS: PREGABALIN 150 MG CAPSULE PO SCH (09:09)
[2022-05-22] MEDS: DOCUSATE SODIUM 100 MG CAPSULE PO SCH (09:10)
[2022-05-22] MEDS: VENLAFAXINE 150 MG CAP.XL.24H PO SCH (09:10)
[2022-05-22] MEDS: BUPRENORPHINE/NALOXONE 4MG/1MG ORAL FILM SL SCH (09:10)
[2022-05-22] MEDS: clonazePAM 1 MG TABLET PO SCH (09:10)
[2022-05-22] MEDS: METHYLNALTREXONE BROMIDE 12 MG/0.6 ML SYRINGE SQ SCH (09:21)
[2022-05-22] MEDS: NICOTINE 21 MG PATCH TOPICAL SCH (09:52)
--- NOTE | 2022-05-22 10:26 | EKG ---
[facility] Test Date: 2022-05-20 Pat Name: Priscila Forrest Department: ED Room: Gender: Female Kerrick Kleaner Operator: SS : 1980 Requested By: Kingsley Tellez Order Number: [id number] Reading MD: Temo Hinson M.D. Measurements Intervals [place] Rate: 78 P: 57 OH: 128 QRS: 21 QRSD: 96 T: 54 QT: 370 QTc: 420 Interpretive Statements Sinus rhythm Borderline low voltage, extremity leads Electronically Signed On 05-22-2022 10:26:20 PDT by Temo Hinson M.D. /store/[id number]
[2022-05-22] MEDS ORDERED: oxyCODONE HCL 5 MG TABLET PO SCH (13:14)
--- NOTE | 2022-05-22 13:23 | Discharge Summary ---
Discharge Provider Provider IMPORTANT FOLLOW-UP INFORMATION FOR PCP: Patient information: Note initiated : 05/22/22 at 1:17 pm Service Date, if different from initiated Date: [] Patient: Priscila Forrest 41 y/o F admitted on 05/20/22 for post op abdominal pain. Chief Complaint: [] Date of admission: 05/20/22 23:56 Discharge date: 05/22/22 Primary care physician: MALOU Marquez Admitting clinician: Marleny Mckay Attending physician on admission: Marleny Mckay Consults: 05/20/22 Consult to Physician [CONS] Stat Comment: Consulting Provider: Marleny Mckay Reason For Exam: Physician to Consult Attending physician on discharge: Marleny Mckay Discharging clinician: Marleny Mckay COURSE Hospital Course Hospital course: 41-year-old female admitted for treatment of slow transit constipation with partial bowel obstruction. Patient has a history of chronic narcotic use and is on chronic Suboxone. She has had 3-day history of abdominal distention with crampy abdominal pain and symptomatic reflux. She was seen in the emergency room x2 and her pain was uncontrolled. Abdominal x-rays show a large fecal burden compatible with her narcotic induced constipation patient is admitted with plans to treat with Relistor and metoclopramide. this treatment was effe ctive and she had multiple bowel movements. She had even more bowel movements last evening and is now asymptomatic. She is eating regular diet without difficulty. Patient is stable for discharge home Discharge diagnosis: Constipation due to narcotic pain medication Secondary discharge diagnosis: Partial small bowel obstruction Opioid dependency Protein calorie malnutrition Chronic depression Reason for admission: Abdominal pain with nausea vomiting Procedures: None Pertinent studies/significant findings: No Complications: None Time Spent with Patient Time attestation: Total time spent providing and/or coordinating discharge services: Time spent: Less than 30 minutes Physical Examination Vital Signs Vital signs: Temp Pulse Resp BP Pulse Ox O2 Del Method O2 Flow Rate 97.8 F 74 12 120/77 97 Room Air 0 05/22/22 12:00 05/22/22 12:00 05/22/22 12:00 05/22/22 12:00 05/22/22 12:00 05/22/22 12:00 05/22/22 08:00 General physical appearance General physical exam: no distress, moderate pain, cachectic and chronically ill Eyes Eye exam: PERRL and normal ocular movement ENT ENT exam: normal mucosa, no congestion and poor jail Head Head exam IM: Present atraumatic, normal inspection and normocephalic Neck Neck exam: no masses, no bruits, trachea midline, no lymphadenopathy and no venous distension Cardiovascular Cardiovascular exam IM: Present normal rate and rhythm, RRR, +S1 and +S2; Absent JVD Respiratory Respiratory exam: normal expansion, normal respiratory effort and clear to auscultation Abdomen Abdomen: Present soft, tender (Mild midline tenderness) and surgical scars (Healing surgical incision); Absent distended Integumentary Integumentary: Present no rash, no growths and no abnormal pigmentation Neurologic Neurologic: Present normal coordination and normal sensation Musculoskeletal Musculoskeletal: Present normal gait and normal posture Psychiatric Psychiatric: Present oriented to time, oriented to person, oriented to place, speech is normal and memory intact Discharge Plan Patient/Caregiver Discharge Instructions Activity: increase activity as tolerated Diet: Regular Diet Prescriptions: Continued sucralfate [Carafate] 1 gram tablet 1 g PO .as needed Qty: 120 3RF albuterol sulfate 90 mcg/actuation HFA aerosol inhaler 1 inh inhalation ONCE PRN (Reason: Shortness Of Breath) nicotine 21 mg/24 hr patch 24 hour 1 patch transdermal Q24H venlafaxine 150 mg capsule,extended release 24hr 150 mg PO QPM ondansetron 4 mg tablet,disintegrating 4 mg translingual PRN PRN (Reason: Nausea) pregabalin 100 mg capsule 300 mg PO QPM clonazepam 1 mg tablet 1 mg PO QDP PRN (Reason: Anxiety) buprenorphine-naloxone [Suboxone] 8-2 mg film 3 film sublingual TID oxycodone-acetaminophen [Endocet] 10-325 mg tablet 1 tab PO Q4H PRN (Reason: Pain) Qty: 30 0RF pantoprazole 40 mg tablet,delayed release (DR/EC) 40 mg PO BIDAC Qty: 60 0RF Prescription drug monitoring program results: PDMP not reviewed Follow Up Plan Follow up with: Carlos Stubbs ARNP [Primary Care Provider] - Marleny Mckay MD [Physician] - (Contact office for an appointment after 15 June 2022) Patient Disposition: Home, Self-Care Prognosis: Fair Rehab Potential: Fair I certify that the patient requires SNF services: No Overall status at discharge: patient is progressing back to baseline Discharge Orders: Discharge Order (Routine); Ordered 05/22/22 Ordered By: Marleny Mckay Pending Pending Pending: Resuscitation Status Resuscitate (Full Code) Diet Regular Diet Start Talia May 22 1843 Acetaminophen (Acetaminophen 500 Mg Tablet) 1,000 mg PO Q4HP PRN; Protocol PRN Reason: Per Pain Protocol Last Admin: 05/22/22 08:26 Dose: 1,000 mg Documented By: Admin: 05/22/22 04:12 Dose: 1,000 mg Documented By: Admin: 05/21/22 23:10 Dose: 1,000 mg Documented By: Admin: 05/21/22 18:56 Dose: 1,000 mg Documented By: JENNIFER Buprenorphine HCl (Buprenorphine/Naloxone 4mg/1mg Oral Film) 3 each SL TID [facility] Last Admin: 05/22/22 09:10 Dose: 3 each Documented By: Admin: 05/21/22 21:20 Dose: 3 each Documented By: Admin: 05/21/22 15:15 Dose: 3 each Documented By: Admin: 05/21/22 11:58 Dose: 3 each Documented By: JANKI Clonazepam (Clonazepam 1 Mg Tablet) 1 mg PO BID [facility] Last Admin: 05/22/22 09:10 Dose: 1 mg Documented By: Admin: 05/21/22 21:21 Dose: 1 mg Documented By: Admin: 05/21/22 11:57 Dose: 1 mg Documented By: JANKI Docusate Sodium (Docusate Sodium 100 Mg Capsule) 100 mg PO BID [facility] Last Admin: 05/22/22 09:10 Dose: 100 mg Documented By: Admin: 05/21/22 21:21 Dose: 100 mg Documented By: Admin: 05/21/22 11:57 Dose: 100 mg Documented By: JANKI Enoxaparin Sodium (Enoxaparin 40 Mg/0.4 Ml Syringe) 40 mg SQ DAILY [facility] Last Admin: 05/22/22 09:09 Dose: 40 mg Documented By: Admin: 05/21/22 11:45 Dose: 40 mg Documented By: JANKI Hydromorphone HCl (Hydromorphone 0.5 Mg/0.5 Ml Syringe) 0.5 mg IV Q4HP PRN; Protocol PRN Reason: Per Pain Protocol Last Admin: 05/22/22 10:23 Dose: 0.5 mg Documented By: Admin: 05/22/22 05:33 Dose: 0.5 mg Documented By: Admin: 05/22/22 00:46 Dose: 0.5 mg Documented By: JENNIFER Sodium Chloride (Sodium Chloride 0.9%) 1,000 mls @ 100 mls/hr IV .Q10H [facility] Last Admin: 05/22/22 04:09 Dose: 100 mls/hr Documented By: Infusion: 05/22/22 03:54 Dose: 100 mls/hr Documented By: Admin: 05/21/22 17:54 Dose: 100 mls/hr Documented By: Infusion: 05/21/22 17:54 Dose: 100 mls/hr Documented By: Admin: 05/21/22 08:12 Dose: 100 mls/hr Documented By: Infusion: 05/21/22 08:12 Dose: 100 mls/hr Documented By: Admin: 05/21/22 00:24 Dose: 100 mls/hr Documented By: CELESTINE Magnesium Hydroxide (Magnesium Hydroxide 30 Ml Oral.Susp) 30 ml PO BID [facility] Last Admin: 05/22/22 09:09 Dose: 30 ml Documented By: Admin: 05/21/22 21:21 Dose: 30 ml Documented By: Admin: 05/21/22 11:56 Dose: 30 ml Documented By: JANKI Methylnaltrexone Trilla (Methylnaltrexone Trilla 12 Mg/0.6 Ml Syringe) 12 mg SQ DAILY [facility] Stop: 05/23/22 09:01 Last Admin: 05/22/22 09:21 Dose: 12 mg Documented By: Admin: 05/21/22 11:45 Dose: 12 mg Documented By: JANKI Metoclopramide HCl (Metoclopramide 10 Mg/2 Ml Vial) 10 mg IV Q6 [facility] Last Admin: 05/22/22 12:22 Dose: 10 mg Documented By: CHARAN Co-signed By: JANKI Admin: 05/22/22 05:34 Dose: 10 mg Documented By: Admin: 05/22/22 00:41 Dose: 10 mg Documented By: Admin: 05/21/22 17:49 Dose: 10 mg Documented By: Admin: 05/21/22 12:08 Dose: 10 mg Documented By: Admin: 05/21/22 06:09 Dose: 10 mg Documented By: Admin: 05/21/22 00:24 Dose: 10 mg Documented By: CELESTINE Nicotine (Nicotine 21 Mg Patch) 21 mg TOPICAL DAILY@1000 [facility] Last Admin: 05/22/22 09:52 Dose: 21 mg Documented By: Admin: 05/21/22 11:46 Dose: 21 mg Documented By: JANKI Pantoprazole Sodium (Pantoprazole 40 Mg Vial) 40 mg IV BIDAC [facility] Last Admin: 05/22/22 07:45 Dose: 40 mg Documented By: Admin: 05/21/22 17:49 Dose: 40 mg Documented By: Admin: 05/21/22 07:18 Dose: 40 mg Documented By: JANKI Pregabalin (Pregabalin 150 Mg Capsule) 150 mg PO BID [facility] Last Admin: 05/22/22 09:09 Dose: 150 mg Documented By: Admin: 05/21/22 21:21 Dose: 150 mg Documented By: Admin: 05/21/22 11:57 Dose: 150 mg Documented By: JANKI Senna (Sennosides 1 Tablet) 2 tab PO HS [facility] Last Admin: 05/21/22 21:21 Dose: 2 tab Documented By: JENNIFER Sodium Chloride (0.9 % Sodium Chloride 10 Ml Syringe) 10 ml IV Q8 [facility] Last Admin: 05/22/22 12:44 Dose: Not Given Documented By: Admin: 05/22/22 05:34 Dose: 10 ml Documented By: Admin: 05/21/22 21:22 Dose: 10 ml Documented By: Admin: 05/21/22 13:24 Dose: Not Given Documented By: Admin: 05/21/22 06:10 Dose: 10 ml Documented By: CELESTINE Sucralfate (Sucralfate 1 Gm/10 Ml Oral.Susp) 1 gm PO Q6 [facility] Last Admin: 05/22/22 11:54 Dose: 1 gm Documented By: Admin: 05/22/22 05:33 Dose: 1 gm Documented By: Admin: 05/22/22 00:42 Dose: 1 gm Documented By: Admin: 05/21/22 17:49 Dose: 1 gm Documented By: Admin: 05/21/22 12:08 Dose: 1 gm Documented By: Admin: 05/21/22 06:09 Dose: 1 gm Documented By: Admin: 05/21/22 00:24 Dose: 1 gm Documented By: CELESTINE Venlafaxine HCl (Venlafaxine 150 Mg Cap.Xl.24h) 150 mg PO DAILY [facility] Last Admin: 05/22/22 09:10 Dose: 150 mg Documented By: Admin: 05/21/22 11:57 Dose: 150 mg Documented By: JANKI Shift Summary 05/22/22 02:31 Shift Summary by Kayleen Davis Primary Diagnosis: Acute Constipation, Partial Small Bowel Obstruction Registration Status: Observation Pertinent Medical Diagnosis/Issue(s): Gastric Ulcer (Chronic), GERD, Gastroparesis (Chronic), Protein Calorie Malnutrition, PTSD (Chronic), Pyloric Obstruction, Opioid Dependence, Tobacco Use Med Management: Relistor SQ QD, Lovenox SQ QD, Protonix IV BID, Carafate PO QID, Reglan IV QID, Colace PO BID, Klonopin 1 mg BID, MOM BID, Nicotine Patch TD (Right Deltoid). Skin/Wound Care: Dehiscence post-surgical incision healing to abdomen. Vital Signs with Trends: VSS, SBPs in low 100s - baseline O2, liter flow/saturations: RA Pain Management: Lyrica 150 mg BID, Suboxone 3 film strips TID, APAP 1gm Q4HP PO, Dilaudid PRN 0.5 mg given once at 0045. Patient is to take all prescription scheduled pain meds prior to Dilaudid dose for pharmacological interventions per MD order. Lab/Radiology: 05/21/2022 Abdominal X-Ray: Resolution of previously seen distended stomach and small bowel at the site of the anastomosis. Hgb 10.2, Hct 33.8, Total Protein 5.8. Pending repeat urine drug screen collected via straight cath. Neuro/Mental Status: A/Ox4, endorses anxiety, but calmed with distraction. Urinary Elimination Device: BR Urinary output greater than 30mL/hr? Yes Date of last BM: 05/22/2022, multiple watery stools this shift - witnessed Lines/Tubes: IV RFA with NS at 100 ml/hr. Activity: 1 SBA for ambulation/fall risk prevention/IV pole assistance. Recommendations/questions for MD: None at this time, See MD communication order for shift. Discharge Plan: Home when medically stable, has personal items in med room to be returned, plan for possible DC 05/22 Initialized on 05/22/22 02:31 - END OF NOTE
== END 2022-05-22 14:20 | disposition home or self-care (01) ==
LOC: MEDSUR 19:43 → ED 19:43 → MEDSUR 05-21 00:07
PROVIDERS: ADMIT Family Medicine Adult Medicine; ATTEND Family Medicine Adult Medicine

== ENCOUNTER 2022-12-08 21:20 | Inpatient (IN) ==
[2022-12-08] MEDS ORDERED: ONDANSETRON 4 MG/2 ML VIAL IV ONE (22:08)
[2022-12-08] MEDS ORDERED: HYDROmorphone 1 MG/ML SYRINGE IV ONE (22:08)
[2022-12-08] MEDS ORDERED: PROMETHAZINE 25 MG/ML VIAL IV PRN (22:21)
[2022-12-09] MEDS ORDERED: SENNOSIDES 1 TABLET PO PRN
[2022-12-09] MEDS ORDERED: LORazepam 2 MG/ML VIAL IV PRN ×2
[2022-12-09] MEDS ORDERED: ACETAMINOPHEN 325 MG TABLET PO PRN
[2022-12-09] MEDS ORDERED: HYDROcodone/APAP 5/325MG TABLET PO PRN
[2022-12-09] MEDS ORDERED: LACTULOSE 20 GM/30 ML ORAL.SOL PO PRN
[2022-12-09] MEDS ORDERED: ALBUTEROL SULFATE 2.5 MG/3 ML NEBULIZER NEB PRN
[2022-12-09] MEDS: 0.9 % SODIUM CHLORIDE 1,000 ML IV SCH ×3 (00:36→10:07)
[2022-12-09 00:37] LABS: Hematocrit 34.3 % (34.1-44.9); Hemoglobin 9.7 g/dL (11.2-15.7); Mean Cell Volume 75.9 fL (80.0-100.0); Mean Corpuscular HGB Conc 28.3 g/dL (31.0-36.0); Mean Platelet Volume 8.8 fL (8.8-12.5); Platelet Count 729 K/mcL (140-440); RBC 4.52 M/mcL (3.59-5.38); Red Cell Distribution Width 16.8 % (11.5-14.5); WBC 9.4 K/mcL (4.5-11.0)
[2022-12-09] MEDS ORDERED: PANTOPRAZOLE 40 MG VIAL IV ONE (00:58)
[2022-12-09] MEDS ORDERED: cefTRIAXone 1 GM VIAL ONE (01:00)
[2022-12-09 01:08] LABS: Anisocytosis 1+ (None Seen); Band Neutrophils % 8 % (0-10); Eosinophils % (Manual) 2 % (0-7); Lymphocytes % 21 % (15-49); Microcytosis 1+ (None Seen); Monocytes % (Manual) 5 % (1-12); Platelet Estimate INCREASED (Normal); RBC Morphology ABNORMAL (Normal); Segmented Neutrophils % 64 % (38-78)
[2022-12-09] MEDS: PANTOPRAZOLE 40 MG VIAL IV SCH ×3 (01:17→15:58)
[2022-12-09] MEDS: cefTRIAXone 1 GM VIAL IV SCH ×2 (01:18→15:58)
[2022-12-09] MEDS: DOXYCYCLINE 100 MG in DEXTROSE 5% IN WATER 100 ML IV SCH ×3 (01:47→20:48)
[2022-12-09] MEDS ORDERED: HYDROmorphone 0.5 MG/0.5 ML SYRINGE ONE (04:51)
[2022-12-09] MEDS: HYDROmorphone 0.5 MG/0.5 ML SYRINGE IV PRN ×8 (04:53→22:50)
[2022-12-09] MEDS: 0.9 % SODIUM CHLORIDE 10 ML SYRINGE IV SCH ×3 (05:27→20:48)
[2022-12-09 06:49] LABS: Basophils # (Auto) 0.05 K/mcL (0.00-0.30); Basophils % (Auto) 0.8 % (0.0-2.0); Eosinophils % (Auto) 6.1 % (0.0-7.0); Hemoglobin 8.2 g/dL (11.2-15.7); Lymphocytes # (Auto) 1.94 K/mcL (1.50-4.80); Lymphocytes % (Auto) 29.4 % (15.5-49.0); Mean Cell Volume 76.3 fL (80.0-100.0); Mean Corpuscular HGB Conc 28.3 g/dL (31.0-36.0); Mean Platelet Volume 8.5 fL (8.8-12.5); Monocytes # (Auto) 0.54 K/mcL (0.10-0.90); Monocytes % (Auto) 8.2 % (1.0-12.0); Platelet Count 407 K/mcL (140-440); Red Cell Distribution Width 16.8 % (11.5-14.5); WBC 6.6 K/mcL (4.5-11.0)
[2022-12-09 06:53] LABS: Ferritin 341.6 ng/mL (13.0-150.0)
[2022-12-09 06:56] LABS: ALT/SGPT 6 U/L (<40); AST/SGOT 8 U/L (<32); Albumin 2.4 gm/dL (3.2-5.2); Albumin/Globulin Ratio 0.9 (1.0-2.3); Alkaline Phosphatase 96 U/L (39-117); Bilirubin,Direct < 0.2 mg/dL (0-0.3); Bilirubin,Total < 0.2 mg/dL (0.1-1.0); Blood Urea Nitrogen 9 mg/dL (6-20); Calcium 7.9 mg/dL (8.6-10.4); Carbon Dioxide 30 mmol/L (22-30); Chloride 103 mmol/L (96-108); Globulin 2.6 gm/dL (2.2-3.7); Glomerular Filtration Rate 118; Glucose 77 mg/dL (70-105); Lactate Dehydrogenase 243 U/L (135-225); Phosphorous 4.4 mg/dL (2.5-4.5); Triglycerides 152 mg/dL (<150); Uric Acid 2.1 mg/dL (2.5-8.0)
[2022-12-09] MEDS ORDERED: BUPRENORPHINE/NALOXONE 4MG/1MG ORAL FILM SL SCH (07:00)
[2022-12-09] MEDS: BUPRENORPHINE/NALOXONE 4MG/1MG ORAL FILM SL SCH ×3 (08:07→20:45)
[2022-12-09] MEDS: DOCUSATE SODIUM 100 MG CAPSULE PO SCH ×2 (09:02→20:48)
[2022-12-09] MEDS ORDERED: HYDROmorphone 0.5 MG/0.5 ML SYRINGE IV PRN (09:04)
[2022-12-09] MEDS: ACETAMINOPHEN 1,000 MG/100 ML BAG IV SCH ×2 (09:57→17:26)
[2022-12-09] MEDS ORDERED: NICOTINE POLACRILEX 2 MG GUM CHEW/PARK PRN (11:28)
[2022-12-09] MEDS: NICOTINE 21 MG PATCH TOPICAL SCH (11:38)
[2022-12-09] MEDS: oxyCODONE IR 5 MG TABLET PO PRN ×4 (11:38→23:50)
[2022-12-09] MEDS ORDERED: clonazePAM 1 MG TABLET PO PRN (12:35)
[2022-12-09] MEDS: DULoxetine 20 MG CAPSULE PO SCH (13:03)
[2022-12-09] MEDS: IPRATROPIUM/ALBUTEROL 3 ML AMPUL.NEB NEB SCH ×4 (14:11→23:12)
[2022-12-09] MEDS: METHYLNALTREXONE BROMIDE 12 MG/0.6 ML SYRINGE SQ SCH (14:15)
[2022-12-09] MEDS: GABAPENTIN 300 MG CAPSULE PO SCH ×2 (14:51→20:48)
[2022-12-09] MEDS: ONDANSETRON 4 MG/2 ML VIAL IV PRN ×2 (14:51→19:13)
[2022-12-09] MEDS ORDERED: IPRATROPIUM/ALBUTEROL 3 ML AMPUL.NEB NEB SCH (15:00)
[2022-12-09] MEDS ORDERED: IOPAMIDOL 100 ML BOTTLE IV ONE (16:31)
[2022-12-10] MEDS: ACETAMINOPHEN 1,000 MG/100 ML BAG IV SCH (01:37)
[2022-12-10] MEDS: HYDROmorphone 0.5 MG/0.5 ML SYRINGE IV PRN ×2 (01:38→05:36)
[2022-12-10] MEDS: IPRATROPIUM/ALBUTEROL 3 ML AMPUL.NEB NEB SCH ×3 (03:10→10:50)
[2022-12-10] MEDS: 0.9 % SODIUM CHLORIDE 10 ML SYRINGE IV SCH (05:36)
[2022-12-10 07:25] LABS: Basophils # (Auto) 0.04 K/mcL (0.00-0.30); Basophils % (Auto) 0.6 % (0.0-2.0); Eosinophils # (Auto) 0.24 K/mcL (0.00-0.70); Eosinophils % (Auto) 3.5 % (0.0-7.0); Hematocrit 26.9 % (34.1-44.9); Hemoglobin 7.5 g/dL (11.2-15.7); Lymphocytes # (Auto) 1.52 K/mcL (1.50-4.80); Mean Cell Volume 77.5 fL (80.0-100.0); Mean Corpuscular HGB Conc 27.9 g/dL (31.0-36.0); Mean Platelet Volume 8.3 fL (8.8-12.5); Monocytes # (Auto) 0.42 K/mcL (0.10-0.90); Monocytes % (Auto) 6.1 % (1.0-12.0); Neutrophils % (Auto) 67.4 % (38.0-78.0); Platelet Count 365 K/mcL (140-440); RBC 3.47 M/mcL (3.59-5.38); Red Cell Distribution Width 16.9 % (11.5-14.5); WBC 6.9 K/mcL (4.5-11.0)
[2022-12-10 07:51] LABS: ALT/SGPT < 5 U/L (<40); AST/SGOT 9 U/L (<32); Albumin 2.2 gm/dL (3.2-5.2); Albumin/Globulin Ratio 0.9 (1.0-2.3); Alkaline Phosphatase 104 U/L (39-117); Bilirubin,Direct < 0.2 mg/dL (0-0.3); Bilirubin,Total < 0.2 mg/dL (0.1-1.0); Blood Urea Nitrogen 7 mg/dL (6-20); Calcium 7.6 mg/dL (8.6-10.4); Carbon Dioxide 27 mmol/L (22-30); Chloride 108 mmol/L (96-108); Globulin 2.4 gm/dL (2.2-3.7); Glomerular Filtration Rate 127; Glucose 85 mg/dL (70-105); Lactate Dehydrogenase 248 U/L (135-225); Phosphorous 4.5 mg/dL (2.5-4.5); Triglycerides 199 mg/dL (<150); Uric Acid 2.3 mg/dL (2.5-8.0)
[2022-12-10] MEDS: GABAPENTIN 300 MG CAPSULE PO SCH (07:56)
[2022-12-10] MEDS: DOCUSATE SODIUM 100 MG CAPSULE PO SCH (07:56)
[2022-12-10] MEDS: PANTOPRAZOLE 40 MG VIAL IV SCH (07:56)
[2022-12-10] MEDS: oxyCODONE IR 5 MG TABLET PO PRN (07:56)
[2022-12-10] MEDS ORDERED: HYDROmorphone 0.5 MG/0.5 ML SYRINGE IV PRN (08:04)
[2022-12-10] MEDS ORDERED: ACETAMINOPHEN 500 MG TABLET PO PRN (08:41)
[2022-12-10] MEDS ORDERED: ENOXAPARIN 40 MG/0.4 ML SYRINGE SQ SCH (09:00)
[2022-12-10] MEDS ORDERED: FAMOTIDINE 20 MG TABLET PO SCH (09:00)
[2022-12-10] MEDS: DULoxetine 20 MG CAPSULE PO SCH (09:29)
[2022-12-10] MEDS: METHYLNALTREXONE BROMIDE 12 MG/0.6 ML SYRINGE SQ SCH (09:29)
[2022-12-10] MEDS: BUPRENORPHINE/NALOXONE 4MG/1MG ORAL FILM SL SCH (09:29)
[2022-12-10] MEDS: DOXYCYCLINE 100 MG in DEXTROSE 5% IN WATER 100 ML IV SCH (09:30)
[2022-12-10] MEDS: NICOTINE 21 MG PATCH TOPICAL SCH (09:42)
[2022-12-10] MEDS ORDERED: NICOTINE 21 MG PATCH TOPICAL SCH (10:00)
[2022-12-10] MEDS ORDERED: GABAPENTIN 300 MG CAPSULE PO ONE (11:35)
[2022-12-10 12:41] LABS: Hematocrit 30.3 % (34.1-44.9); Hemoglobin 8.7 g/dL (11.2-15.7)
== END 2022-12-10 13:15 | disposition home or self-care (01) | DRG 388 ==
LOC: ED 21:20 → ICU 23:37
PROVIDERS: ADMIT Internal Medicine; ATTEND Internal Medicine

== ENCOUNTER 2023-03-16 11:29 | Inpatient (IN) ==
[2023-03-16] MEDS ORDERED: TPN PER PHARMACY IV SCH (13:00)
[2023-03-16] MEDS ORDERED: IOPAMIDOL 100 ML BOTTLE IV ONE (14:50)
[2023-03-16] MEDS: METHYLNALTREXONE BROMIDE 12 MG/0.6 ML SYRINGE SQ SCH (14:50)
[2023-03-16] MEDS: 0.9 % SODIUM CHLORIDE 10 ML SYRINGE IV SCH ×2 (14:51→22:07)
[2023-03-16] MEDS: 0.9 % SODIUM CHLORIDE 1,000 ML IV SCH (14:51)
[2023-03-16] MEDS: fentaNYL 100 MCG/2 ML VIAL IV PRN ×3 (15:37→23:13)
[2023-03-16] MEDS ORDERED: NICOTINE 21 MG PATCH TOPICAL ONE (15:49)
[2023-03-16] MEDS ORDERED: DEXTROSE 50% 50 ML SYRINGE IV PRN (16:03)
[2023-03-16 16:07] LABS: ALT/SGPT 7 U/L (<40); AST/SGOT 13 U/L (<32); Albumin 3.1 gm/dL (3.2-5.2); Albumin/Globulin Ratio 1.2 (1.0-2.3); Alkaline Phosphatase 141 U/L (39-117); Bilirubin,Direct < 0.2 mg/dL (0-0.3); Bilirubin,Total < 0.2 mg/dL (0.1-1.0); Blood Urea Nitrogen 14 mg/dL (6-20); Calcium 5.9 mg/dL (8.6-10.4); Carbon Dioxide 28 mmol/L (22-30); Chloride 100 mmol/L (96-108); Globulin 2.6 gm/dL (2.2-3.7); Glomerular Filtration Rate 118; Glucose 87 mg/dL (70-105); Lactate Dehydrogenase 188 U/L (135-225); Phosphorous 3.9 mg/dL (2.5-4.5); Triglycerides 168 mg/dL (<150); Uric Acid 1.3 mg/dL (2.5-8.0)
[2023-03-16] MEDS ORDERED: SODIUM CHLORIDE IV SCH (17:00)
[2023-03-16] MEDS ORDERED: MAGNESIUM SULFATE IV SCH (17:00)
[2023-03-16] MEDS ORDERED: MVI IV SCH (17:00)
[2023-03-16] MEDS ORDERED: [UNRECOGNIZED DRUG - OTHER] IV SCH (17:00)
[2023-03-16] MEDS ORDERED: CALCIUM GLUCONATE IV SCH (17:00)
[2023-03-16] MEDS ORDERED: ALBUTEROL SULFATE 60 PUFF INHALER INH PRN (17:14)
[2023-03-16] MEDS ORDERED: clonazePAM 1 MG TABLET PO PRN (17:14)
[2023-03-16] MEDS: INSULIN LISPRO 1 UNIT/0.01 ML UNIT SQ SCH ×2 (17:17→23:28)
[2023-03-16] MEDS: NICOTINE 21 MG PATCH TOPICAL SCH (17:27)
[2023-03-16] MEDS: GABAPENTIN 300 MG CAPSULE PO SCH (20:52)
[2023-03-16] MEDS: clonazePAM 1 MG TABLET PO SCH (20:52)
[2023-03-16] MEDS: SENNOSIDES 1 TABLET PO SCH (20:52)
[2023-03-16] MEDS: DOCUSATE SODIUM 100 MG CAPSULE PO SCH (20:52)
[2023-03-16] MEDS: DULoxetine 20 MG CAPSULE PO SCH (20:53)
[2023-03-16] MEDS: BUPRENORPHINE/NALOXONE 4MG/1MG ORAL FILM SL SCH (20:53)
[2023-03-16] MEDS ORDERED: 0.9 % SODIUM CHLORIDE 10 ML SYRINGE IV PRN (21:24)
[2023-03-17] MEDS: 0.9 % SODIUM CHLORIDE 1,000 ML IV SCH ×3 (01:04→20:42)
[2023-03-17] MEDS: fentaNYL 100 MCG/2 ML VIAL IV PRN ×5 (05:06→20:38)
[2023-03-17] MEDS: INSULIN LISPRO 1 UNIT/0.01 ML UNIT SQ SCH ×3 (05:56→17:42)
[2023-03-17] MEDS: 0.9 % SODIUM CHLORIDE 10 ML SYRINGE IV SCH ×5 (05:57→22:49)
[2023-03-17 06:30] LABS: Basophils # (Auto) 0 K/mcL (0.00-0.30); Basophils % (Auto) 0 % (0.0-2.0); Eosinophils % (Auto) 1.3 % (0.0-7.0); Hematocrit 35.2 % (34.1-44.9); Hemoglobin 10.3 g/dL (11.2-15.7); Lymphocytes % (Auto) 35.7 % (15.5-49.0); Mean Cell Volume 82.6 fL (80.0-100.0); Mean Corpuscular HGB Conc 29.3 g/dL (31.0-36.0); Mean Platelet Volume 8.1 fL (8.8-12.5); Monocytes # (Auto) 0.58 K/mcL (0.10-0.90); Monocytes % (Auto) 7.7 % (1.0-12.0); Neutrophils % (Auto) 54.9 % (38.0-78.0); Platelet Count 410 K/mcL (140-440); RBC 4.26 M/mcL (3.59-5.38); Red Cell Distribution Width 18.5 % (11.5-14.5); WBC 7.6 K/mcL (4.5-11.0)
[2023-03-17 06:57] LABS: ALT/SGPT 6 U/L (<40); AST/SGOT 10 U/L (<32); Albumin 2.6 gm/dL (3.2-5.2); Albumin/Globulin Ratio 1.2 (1.0-2.3); Alkaline Phosphatase 117 U/L (39-117); Bilirubin,Direct < 0.2 mg/dL (0-0.3); Bilirubin,Total < 0.2 mg/dL (0.1-1.0); Blood Urea Nitrogen 10 mg/dL (6-20); Carbon Dioxide 22 mmol/L (22-30); Chloride 108 mmol/L (96-108); Globulin 2.1 gm/dL (2.2-3.7); Glomerular Filtration Rate 127; Glucose 109 mg/dL (70-105); Lactate Dehydrogenase 333 U/L (135-225); Phosphorous 3.2 mg/dL (2.5-4.5); Triglycerides 124 mg/dL (<150); Uric Acid 1.5 mg/dL (2.5-8.0)
[2023-03-17] MEDS ORDERED: DULoxetine 20 MG CAPSULE PO SCH (09:00)
[2023-03-17] MEDS: BUPRENORPHINE/NALOXONE 4MG/1MG ORAL FILM SL SCH ×2 (09:24→20:27)
[2023-03-17] MEDS: METHYLNALTREXONE BROMIDE 12 MG/0.6 ML SYRINGE SQ SCH (09:24)
[2023-03-17] MEDS: GABAPENTIN 300 MG CAPSULE PO SCH ×3 (09:25→20:26)
[2023-03-17] MEDS: DOCUSATE SODIUM 100 MG CAPSULE PO SCH ×2 (09:26→20:26)
[2023-03-17] MEDS: clonazePAM 1 MG TABLET PO SCH ×2 (09:26→20:27)
[2023-03-17] MEDS ORDERED: NICOTINE 21 MG PATCH TOPICAL SCH ×2 (10:00)
[2023-03-17] MEDS: NICOTINE 21 MG PATCH TOPICAL SCH (10:23)
[2023-03-17] MEDS ORDERED: POTASSIUM PHOSPHATE 40 MEQ in DEXTROSE 5% IN WATER 500 ML IV ONE (13:34)
[2023-03-17] MEDS: MAGNESIUM HYDROXIDE 30 ML ORAL.SUSP PO SCH ×2 (13:52→20:27)
[2023-03-17] MEDS ORDERED: FAT EMULSION 20% 250 ML in PREMIX 1 BAG IV SCH (16:00)
[2023-03-17] MEDS ORDERED: CALCIUM GLUCONATE IV SCH (17:00)
[2023-03-17] MEDS ORDERED: SODIUM CHLORIDE IV SCH (17:00)
[2023-03-17] MEDS ORDERED: MVI IV SCH (17:00)
[2023-03-17] MEDS ORDERED: MAGNESIUM SULFATE IV SCH (17:00)
[2023-03-17] MEDS ORDERED: [UNRECOGNIZED DRUG - OTHER] IV SCH (17:00)
[2023-03-17] MEDS: PANTOPRAZOLE 40 MG VIAL IV SCH (17:12)
[2023-03-17] MEDS: DULoxetine 20 MG CAPSULE PO SCH (20:26)
[2023-03-17] MEDS: SENNOSIDES 1 TABLET PO SCH (20:26)
[2023-03-17] MEDS: POLYETHYLENE GLYCOL 3350 17 GM PACKET PO SCH (20:27)
[2023-03-18] MEDS: fentaNYL 100 MCG/2 ML VIAL IV PRN ×6 (00:05→20:31)
[2023-03-18] MEDS: INSULIN LISPRO 1 UNIT/0.01 ML UNIT SQ SCH ×4 (00:08→16:57)
[2023-03-18] MEDS: 0.9 % SODIUM CHLORIDE 10 ML SYRINGE IV SCH ×5 (06:00→20:25)
[2023-03-18] MEDS: 0.9 % SODIUM CHLORIDE 1,000 ML IV SCH ×2 (06:45→16:24)
[2023-03-18 07:08] LABS: ALT/SGPT 10 U/L (<40); AST/SGOT 17 U/L (<32); Albumin 2.8 gm/dL (3.2-5.2); Albumin/Globulin Ratio 1.2 (1.0-2.3); Alkaline Phosphatase 112 U/L (39-117); Bilirubin,Direct < 0.2 mg/dL (0-0.3); Bilirubin,Total < 0.2 mg/dL (0.1-1.0); Blood Urea Nitrogen 8 mg/dL (6-20); Calcium 8.4 mg/dL (8.6-10.4); Carbon Dioxide 23 mmol/L (22-30); Chloride 108 mmol/L (96-108); Globulin 2.3 gm/dL (2.2-3.7); Glomerular Filtration Rate 140; Glucose 90 mg/dL (70-105); Lactate Dehydrogenase 197 U/L (135-225); Triglycerides 174 mg/dL (<150)
[2023-03-18] MEDS: PANTOPRAZOLE 40 MG VIAL IV SCH ×2 (08:15→16:54)
[2023-03-18] MEDS: GABAPENTIN 300 MG CAPSULE PO SCH ×3 (08:48→20:34)
[2023-03-18] MEDS: MAGNESIUM HYDROXIDE 30 ML ORAL.SUSP PO SCH (08:48)
[2023-03-18] MEDS: BUPRENORPHINE/NALOXONE 4MG/1MG ORAL FILM SL SCH ×2 (08:49→20:33)
[2023-03-18] MEDS: DOCUSATE SODIUM 100 MG CAPSULE PO SCH ×2 (08:49→20:23)
[2023-03-18] MEDS: clonazePAM 1 MG TABLET PO SCH ×2 (08:49→20:35)
[2023-03-18] MEDS: POLYETHYLENE GLYCOL 3350 17 GM PACKET PO SCH ×2 (08:49→20:34)
[2023-03-18] MEDS: NICOTINE 21 MG PATCH TOPICAL SCH (10:50)
[2023-03-18] MEDS: METHYLNALTREXONE BROMIDE 12 MG/0.6 ML SYRINGE SQ SCH (12:36)
[2023-03-18] MEDS ORDERED: CALCIUM GLUCONATE IV SCH (16:30)
[2023-03-18] MEDS ORDERED: [UNRECOGNIZED DRUG - OTHER] IV SCH (16:30)
[2023-03-18] MEDS ORDERED: SODIUM CHLORIDE IV SCH (16:30)
[2023-03-18] MEDS ORDERED: MAGNESIUM SULFATE IV SCH (16:30)
[2023-03-18] MEDS ORDERED: MVI IV SCH (16:30)
[2023-03-18] MEDS: diphenhydrAMINE 50 MG/ML VIAL IV PRN ×2 (18:04→22:37)
[2023-03-18] MEDS: SENNOSIDES 1 TABLET PO SCH (20:22)
[2023-03-18] MEDS: DULoxetine 20 MG CAPSULE PO SCH (20:34)
[2023-03-19] MEDS: INSULIN LISPRO 1 UNIT/0.01 ML UNIT SQ SCH ×4 (00:25→17:37)
[2023-03-19] MEDS: MAGNESIUM HYDROXIDE 30 ML ORAL.SUSP PO SCH (01:47)
[2023-03-19] MEDS: 0.9 % SODIUM CHLORIDE 1,000 ML IV SCH ×2 (01:51→11:21)
[2023-03-19] MEDS: fentaNYL 100 MCG/2 ML VIAL IV PRN ×6 (02:24→22:21)
[2023-03-19] MEDS: diphenhydrAMINE 50 MG/ML VIAL IV PRN ×5 (02:37→22:25)
[2023-03-19] MEDS: 0.9 % SODIUM CHLORIDE 10 ML SYRINGE IV SCH ×5 (05:52→22:22)
[2023-03-19 06:40] LABS: ALT/SGPT 7 U/L (<40); AST/SGOT 19 U/L (<32); Albumin 2.4 gm/dL (3.2-5.2); Albumin/Globulin Ratio 1.1 (1.0-2.3); Alkaline Phosphatase 99 U/L (39-117); Bilirubin,Direct < 0.2 mg/dL (0-0.3); Bilirubin,Total < 0.2 mg/dL (0.1-1.0); Blood Urea Nitrogen 8 mg/dL (6-20); Calcium 8.3 mg/dL (8.6-10.4); Carbon Dioxide 22 mmol/L (22-30); Chloride 109 mmol/L (96-108); Globulin 2.2 gm/dL (2.2-3.7); Glomerular Filtration Rate 127; Glucose 92 mg/dL (70-105); Lactate Dehydrogenase 205 U/L (135-225); Phosphorous 4.4 mg/dL (2.5-4.5); Triglycerides 169 mg/dL (<150); Uric Acid 0.9 mg/dL (2.5-8.0)
[2023-03-19] MEDS: PANTOPRAZOLE 40 MG VIAL IV SCH ×2 (06:57→16:14)
[2023-03-19] MEDS: DOCUSATE SODIUM 100 MG CAPSULE PO SCH (08:00)
[2023-03-19 08:02] LABS: Prealbumin 20.2 mg/dL (20.0-40.0)
[2023-03-19] MEDS: METHYLNALTREXONE BROMIDE 12 MG/0.6 ML SYRINGE SQ SCH (08:05)
[2023-03-19] MEDS: BUPRENORPHINE/NALOXONE 4MG/1MG ORAL FILM SL SCH ×2 (08:06→20:02)
[2023-03-19] MEDS: clonazePAM 1 MG TABLET PO SCH ×2 (08:06→20:03)
[2023-03-19] MEDS: GABAPENTIN 300 MG CAPSULE PO SCH ×3 (08:06→20:03)
[2023-03-19] MEDS: POLYETHYLENE GLYCOL 3350 17 GM PACKET PO SCH ×3 (08:33→20:25)
[2023-03-19] MEDS: NICOTINE 21 MG PATCH TOPICAL SCH (10:00)
[2023-03-19] MEDS ORDERED: MVI IV SCH (15:00)
[2023-03-19] MEDS ORDERED: SODIUM CHLORIDE IV SCH (15:00)
[2023-03-19] MEDS ORDERED: MAGNESIUM SULFATE IV SCH (15:00)
[2023-03-19] MEDS ORDERED: [UNRECOGNIZED DRUG - OTHER] IV SCH (15:00)
[2023-03-19] MEDS ORDERED: CALCIUM GLUCONATE IV SCH (15:00)
[2023-03-19] MEDS: DULoxetine 20 MG CAPSULE PO SCH (20:02)
[2023-03-19] MEDS: SENNOSIDES 1 TABLET PO SCH (20:15)
[2023-03-20] MEDS: INSULIN LISPRO 1 UNIT/0.01 ML UNIT SQ SCH ×4 (00:01→17:24)
[2023-03-20] MEDS: 0.9 % SODIUM CHLORIDE 1,000 ML IV SCH ×3 (02:19→17:21)
[2023-03-20] MEDS: DOCUSATE SODIUM 100 MG CAPSULE PO SCH ×3 (02:20→21:53)
[2023-03-20] MEDS: fentaNYL 100 MCG/2 ML VIAL IV PRN ×6 (03:37→23:59)
[2023-03-20] MEDS: diphenhydrAMINE 50 MG/ML VIAL IV PRN ×4 (03:40→19:10)
[2023-03-20] MEDS: 0.9 % SODIUM CHLORIDE 10 ML SYRINGE IV SCH ×5 (07:09→21:54)
[2023-03-20 07:17] LABS: ALT/SGPT 13 U/L (<40); AST/SGOT 18 U/L (<32); Albumin 2.8 gm/dL (3.2-5.2); Albumin/Globulin Ratio 1.2 (1.0-2.3); Alkaline Phosphatase 101 U/L (39-117); Bilirubin,Direct < 0.2 mg/dL (0-0.3); Bilirubin,Total < 0.2 mg/dL (0.1-1.0); Blood Urea Nitrogen 11 mg/dL (6-20); Calcium 8.4 mg/dL (8.6-10.4); Carbon Dioxide 22 mmol/L (22-30); Chloride 108 mmol/L (96-108); Globulin 2.4 gm/dL (2.2-3.7); Glomerular Filtration Rate 140; Glucose 84 mg/dL (70-105); Lactate Dehydrogenase 259 U/L (135-225); Phosphorous 4.4 mg/dL (2.5-4.5); Triglycerides 160 mg/dL (<150)
[2023-03-20] MEDS: PANTOPRAZOLE 40 MG VIAL IV SCH ×2 (07:26→17:21)
[2023-03-20] MEDS: GABAPENTIN 300 MG CAPSULE PO SCH ×3 (08:34→20:05)
[2023-03-20] MEDS: POLYETHYLENE GLYCOL 3350 17 GM PACKET PO SCH ×2 (08:34→21:53)
[2023-03-20] MEDS: clonazePAM 1 MG TABLET PO SCH ×2 (08:34→20:05)
[2023-03-20] MEDS: BUPRENORPHINE/NALOXONE 4MG/1MG ORAL FILM SL SCH ×2 (08:35→20:06)
[2023-03-20 08:39] LABS: Prealbumin 25.1 mg/dL (20.0-40.0)
[2023-03-20] MEDS: NICOTINE 21 MG PATCH TOPICAL SCH (10:36)
[2023-03-20] MEDS: ONDANSETRON 4 MG/2 ML VIAL IV PRN (13:36)
[2023-03-20] MEDS: CARISOPRODOL 350 MG TABLET PO PRN (15:52)
[2023-03-20] MEDS: BUTALB/ACETAMINOPHEN/CAFFEINE 1 TABLET PO PRN (15:52)
[2023-03-20] MEDS: SODIUM CHLORIDE IV SCH (16:09)
[2023-03-20] MEDS: MAGNESIUM SULFATE IV SCH (16:09)
[2023-03-20] MEDS: CALCIUM GLUCONATE IV SCH (16:09)
[2023-03-20] MEDS: MVI IV SCH (16:09)
[2023-03-20] MEDS: [UNRECOGNIZED DRUG - OTHER] IV SCH (16:09)
[2023-03-20] MEDS: PROMETHAZINE 25 MG/ML VIAL IV PRN (19:10)
[2023-03-20] MEDS: DULoxetine 20 MG CAPSULE PO SCH (20:05)
[2023-03-20] MEDS: SENNOSIDES 1 TABLET PO SCH (21:53)
[2023-03-21] MEDS: diphenhydrAMINE 50 MG/ML VIAL IV PRN ×3 (00:04→17:40)
[2023-03-21] MEDS: INSULIN LISPRO 1 UNIT/0.01 ML UNIT SQ SCH ×4 (00:13→17:50)
[2023-03-21] MEDS: fentaNYL 100 MCG/2 ML VIAL IV PRN ×5 (04:23→21:52)
[2023-03-21] MEDS: 0.9 % SODIUM CHLORIDE 1,000 ML IV SCH ×3 (05:53→23:25)
[2023-03-21] MEDS: 0.9 % SODIUM CHLORIDE 10 ML SYRINGE IV SCH ×5 (05:57→20:22)
[2023-03-21] MEDS: PANTOPRAZOLE 40 MG VIAL IV SCH ×2 (07:05→17:40)
[2023-03-21] MEDS: BUTALB/ACETAMINOPHEN/CAFFEINE 1 TABLET PO PRN ×2 (07:28→23:24)
[2023-03-21 07:31] LABS: Prealbumin 27.2 mg/dL (20.0-40.0)
[2023-03-21] MEDS: clonazePAM 1 MG TABLET PO SCH ×2 (08:32→20:20)
[2023-03-21] MEDS: DOCUSATE SODIUM 100 MG CAPSULE PO SCH ×2 (08:32→20:22)
[2023-03-21] MEDS: POLYETHYLENE GLYCOL 3350 17 GM PACKET PO SCH ×2 (08:33→20:21)
[2023-03-21] MEDS: BUPRENORPHINE/NALOXONE 4MG/1MG ORAL FILM SL SCH ×2 (08:33→20:20)
[2023-03-21] MEDS: GABAPENTIN 300 MG CAPSULE PO SCH ×3 (08:33→20:21)
[2023-03-21] MEDS: NICOTINE 21 MG PATCH TOPICAL SCH (08:33)
[2023-03-21] MEDS: CARISOPRODOL 350 MG TABLET PO PRN ×3 (14:19→20:36)
[2023-03-21] MEDS: PROMETHAZINE 25 MG/ML VIAL IV PRN (14:19)
[2023-03-21] MEDS: [UNRECOGNIZED DRUG - OTHER] IV SCH (15:18)
[2023-03-21] MEDS: CALCIUM GLUCONATE IV SCH (15:18)
[2023-03-21] MEDS: MVI IV SCH (15:18)
[2023-03-21] MEDS: MAGNESIUM SULFATE IV SCH (15:18)
[2023-03-21] MEDS: SODIUM CHLORIDE IV SCH (15:18)
[2023-03-21] MEDS: ONDANSETRON 4 MG/2 ML VIAL IV PRN (17:46)
[2023-03-21] MEDS: DULoxetine 20 MG CAPSULE PO SCH (20:21)
[2023-03-21] MEDS: SENNOSIDES 1 TABLET PO SCH (20:22)
[2023-03-22] MEDS: INSULIN LISPRO 1 UNIT/0.01 ML UNIT SQ SCH ×5 (00:11→23:27)
[2023-03-22] MEDS: fentaNYL 100 MCG/2 ML VIAL IV PRN ×5 (02:16→21:20)
[2023-03-22] MEDS: diphenhydrAMINE 50 MG/ML VIAL IV PRN ×4 (02:34→23:52)
[2023-03-22] MEDS: 0.9 % SODIUM CHLORIDE 10 ML SYRINGE IV SCH ×5 (05:22→20:44)
[2023-03-22 06:23] LABS: Basophils # (Auto) 0.02 K/mcL (0.00-0.30); Basophils % (Auto) 0.2 % (0.0-2.0); Eosinophils # (Auto) 0.32 K/mcL (0.00-0.70); Eosinophils % (Auto) 3.1 % (0.0-7.0); Hematocrit 32.1 % (34.1-44.9); Hemoglobin 9.4 g/dL (11.2-15.7); Lymphocytes # (Auto) 1.98 K/mcL (1.50-4.80); Lymphocytes % (Auto) 19.2 % (15.5-49.0); Mean Cell Volume 84.5 fL (80.0-100.0); Mean Corpuscular HGB Conc 29.3 g/dL (31.0-36.0); Mean Platelet Volume 8.4 fL (8.8-12.5); Monocytes # (Auto) 0.76 K/mcL (0.10-0.90); Monocytes % (Auto) 7.4 % (1.0-12.0); Neutrophils % (Auto) 69.1 % (38.0-78.0); Platelet Count 294 K/mcL (140-440); Red Cell Distribution Width 18.4 % (11.5-14.5); WBC 10.3 K/mcL (4.5-11.0)
[2023-03-22 06:55] LABS: ALT/SGPT 15 U/L (<40); AST/SGOT 21 U/L (<32); Albumin 2.8 gm/dL (3.2-5.2); Albumin/Globulin Ratio 1.2 (1.0-2.3); Alkaline Phosphatase 92 U/L (39-117); Bilirubin,Direct < 0.2 mg/dL (0-0.3); Bilirubin,Total < 0.2 mg/dL (0.1-1.0); Blood Urea Nitrogen 15 mg/dL (6-20); Calcium 8.4 mg/dL (8.6-10.4); Carbon Dioxide 25 mmol/L (22-30); Chloride 105 mmol/L (96-108); Globulin 2.3 gm/dL (2.2-3.7); Glomerular Filtration Rate 140; Glucose 91 mg/dL (70-105); Lactate Dehydrogenase 169 U/L (135-225); Phosphorous 4.6 mg/dL (2.5-4.5); Triglycerides 146 mg/dL (<150); Uric Acid 1.1 mg/dL (2.5-8.0)
[2023-03-22] MEDS: PANTOPRAZOLE 40 MG VIAL IV SCH ×2 (07:58→17:04)
[2023-03-22] MEDS: DOCUSATE SODIUM 100 MG CAPSULE PO SCH ×2 (08:05→20:43)
[2023-03-22] MEDS: POLYETHYLENE GLYCOL 3350 17 GM PACKET PO SCH ×2 (08:05→20:43)
[2023-03-22] MEDS: GABAPENTIN 300 MG CAPSULE PO SCH ×3 (09:12→20:39)
[2023-03-22] MEDS: clonazePAM 1 MG TABLET PO SCH ×2 (09:12→20:38)
[2023-03-22] MEDS: BUPRENORPHINE/NALOXONE 4MG/1MG ORAL FILM SL SCH ×2 (09:12→20:38)
[2023-03-22] MEDS: 0.9 % SODIUM CHLORIDE 1,000 ML IV SCH ×2 (09:13→19:05)
[2023-03-22] MEDS: BUTALB/ACETAMINOPHEN/CAFFEINE 1 TABLET PO PRN ×3 (09:18→23:51)
[2023-03-22] MEDS: NICOTINE 21 MG PATCH TOPICAL SCH (12:21)
[2023-03-22] MEDS: ONDANSETRON 4 MG/2 ML VIAL IV PRN (12:55)
[2023-03-22] MEDS: CARISOPRODOL 350 MG TABLET PO PRN ×2 (13:31→20:38)
[2023-03-22] MEDS ORDERED: MAGNESIUM SULFATE IV SCH (15:00)
[2023-03-22] MEDS ORDERED: CALCIUM GLUCONATE IV SCH (15:00)
[2023-03-22] MEDS ORDERED: [UNRECOGNIZED DRUG - OTHER] IV SCH (15:00)
[2023-03-22] MEDS ORDERED: MVI IV SCH (15:00)
[2023-03-22] MEDS ORDERED: SODIUM CHLORIDE IV SCH (15:00)
[2023-03-22] MEDS: DULoxetine 20 MG CAPSULE PO SCH (20:39)
[2023-03-22] MEDS: SENNOSIDES 1 TABLET PO SCH (20:44)
[2023-03-23] MEDS: fentaNYL 100 MCG/2 ML VIAL IV PRN ×5 (01:54→20:06)
[2023-03-23] MEDS: 0.9 % SODIUM CHLORIDE 1,000 ML IV SCH ×2 (05:06→14:43)
[2023-03-23] MEDS: INSULIN LISPRO 1 UNIT/0.01 ML UNIT SQ SCH ×3 (05:23→17:16)
[2023-03-23] MEDS: 0.9 % SODIUM CHLORIDE 10 ML SYRINGE IV SCH ×5 (05:23→21:14)
[2023-03-23] MEDS: PANTOPRAZOLE 40 MG VIAL IV SCH ×2 (07:01→17:12)
[2023-03-23 08:39] LABS: ALT/SGPT 14 U/L (<40); AST/SGOT 18 U/L (<32); Albumin 2.9 gm/dL (3.2-5.2); Albumin/Globulin Ratio 1.1 (1.0-2.3); Alkaline Phosphatase 97 U/L (39-117); Bilirubin,Direct < 0.2 mg/dL (0-0.3); Bilirubin,Total < 0.2 mg/dL (0.1-1.0); Blood Urea Nitrogen 11 mg/dL (6-20); Calcium 8.4 mg/dL (8.6-10.4); Carbon Dioxide 28 mmol/L (22-30); Chloride 104 mmol/L (96-108); Globulin 2.6 gm/dL (2.2-3.7); Glomerular Filtration Rate 127; Glucose 86 mg/dL (70-105); Lactate Dehydrogenase 206 U/L (135-225); Phosphorous 4.3 mg/dL (2.5-4.5); Triglycerides 136 mg/dL (<150); Uric Acid 1.4 mg/dL (2.5-8.0)
[2023-03-23] MEDS: clonazePAM 1 MG TABLET PO SCH ×2 (09:28→20:06)
[2023-03-23] MEDS: POLYETHYLENE GLYCOL 3350 17 GM PACKET PO SCH ×2 (09:28→21:14)
[2023-03-23] MEDS: BUPRENORPHINE/NALOXONE 4MG/1MG ORAL FILM SL SCH ×2 (09:28→21:12)
[2023-03-23] MEDS: NICOTINE 21 MG PATCH TOPICAL SCH (09:28)
[2023-03-23] MEDS: DOCUSATE SODIUM 100 MG CAPSULE PO SCH ×2 (09:28→21:13)
[2023-03-23] MEDS: GABAPENTIN 300 MG CAPSULE PO SCH ×3 (09:28→21:13)
[2023-03-23] MEDS: diphenhydrAMINE 50 MG/ML VIAL IV PRN ×3 (11:45→21:13)
[2023-03-23] MEDS: BUTALB/ACETAMINOPHEN/CAFFEINE 1 TABLET PO PRN (11:45)
[2023-03-23] MEDS: SODIUM CHLORIDE IV SCH (15:54)
[2023-03-23] MEDS: CALCIUM GLUCONATE IV SCH (15:54)
[2023-03-23] MEDS: [UNRECOGNIZED DRUG - OTHER] IV SCH (15:54)
[2023-03-23] MEDS: MVI IV SCH (15:54)
[2023-03-23] MEDS: MAGNESIUM SULFATE IV SCH (15:54)
[2023-03-23] MEDS: CARISOPRODOL 350 MG TABLET PO PRN ×2 (15:59→21:13)
[2023-03-23] MEDS: DULoxetine 20 MG CAPSULE PO SCH (21:13)
[2023-03-23] MEDS: SENNOSIDES 1 TABLET PO SCH (21:14)
[2023-03-24] MEDS: INSULIN LISPRO 1 UNIT/0.01 ML UNIT SQ SCH ×5 (00:07→23:41)
[2023-03-24] MEDS: BUTALB/ACETAMINOPHEN/CAFFEINE 1 TABLET PO PRN ×3 (00:12→19:59)
[2023-03-24] MEDS: fentaNYL 100 MCG/2 ML VIAL IV PRN ×6 (00:13→21:45)
[2023-03-24] MEDS: 0.9 % SODIUM CHLORIDE 1,000 ML IV SCH ×3 (00:17→21:03)
[2023-03-24] MEDS: 0.9 % SODIUM CHLORIDE 10 ML SYRINGE IV SCH ×5 (05:28→21:03)
[2023-03-24 07:15] LABS: ALT/SGPT 20 U/L (<40); AST/SGOT 30 U/L (<32); Albumin 3.2 gm/dL (3.2-5.2); Albumin/Globulin Ratio 1.1 (1.0-2.3); Alkaline Phosphatase 103 U/L (39-117); Bilirubin,Direct < 0.2 mg/dL (0-0.3); Bilirubin,Total < 0.2 mg/dL (0.1-1.0); Blood Urea Nitrogen 20 mg/dL (6-20); Calcium 8.7 mg/dL (8.6-10.4); Carbon Dioxide 26 mmol/L (22-30); Chloride 103 mmol/L (96-108); Glomerular Filtration Rate 140; Glucose 83 mg/dL (70-105); Lactate Dehydrogenase 213 U/L (135-225); Phosphorous 4.1 mg/dL (2.5-4.5); Triglycerides 148 mg/dL (<150); Uric Acid 1.2 mg/dL (2.5-8.0)
[2023-03-24] MEDS: PANTOPRAZOLE 40 MG VIAL IV SCH ×2 (07:27→17:40)
[2023-03-24 07:36] LABS: Basophils # (Auto) 0.03 K/mcL (0.00-0.30); Basophils % (Auto) 0.4 % (0.0-2.0); Eosinophils % (Auto) 4.1 % (0.0-7.0); Hematocrit 33.8 % (34.1-44.9); Hemoglobin 9.7 g/dL (11.2-15.7); Lymphocytes # (Auto) 1.73 K/mcL (1.50-4.80); Lymphocytes % (Auto) 23.4 % (15.5-49.0); Mean Cell Volume 84.9 fL (80.0-100.0); Mean Corpuscular HGB Conc 28.7 g/dL (31.0-36.0); Mean Platelet Volume 8.9 fL (8.8-12.5); Monocytes # (Auto) 0.78 K/mcL (0.10-0.90); Monocytes % (Auto) 10.6 % (1.0-12.0); Neutrophils % (Auto) 60.8 % (38.0-78.0); Platelet Count 345 K/mcL (140-440); RBC 3.98 M/mcL (3.59-5.38); Red Cell Distribution Width 18.4 % (11.5-14.5); WBC 7.4 K/mcL (4.5-11.0)
[2023-03-24] MEDS: CARISOPRODOL 350 MG TABLET PO PRN ×2 (07:41→23:41)
[2023-03-24] MEDS: DOCUSATE SODIUM 100 MG CAPSULE PO SCH ×2 (08:56→20:19)
[2023-03-24] MEDS: clonazePAM 1 MG TABLET PO SCH ×2 (08:56→20:20)
[2023-03-24] MEDS: BUPRENORPHINE/NALOXONE 4MG/1MG ORAL FILM SL SCH ×2 (08:56→20:20)
[2023-03-24] MEDS: GABAPENTIN 300 MG CAPSULE PO SCH ×3 (08:57→20:20)
[2023-03-24] MEDS: POLYETHYLENE GLYCOL 3350 17 GM PACKET PO SCH ×2 (09:03→20:19)
[2023-03-24] MEDS: NICOTINE 21 MG PATCH TOPICAL SCH (09:08)
[2023-03-24] MEDS: diphenhydrAMINE 50 MG/ML VIAL IV PRN ×2 (14:56→22:11)
[2023-03-24] MEDS: MAGNESIUM SULFATE IV SCH (16:09)
[2023-03-24] MEDS: SODIUM CHLORIDE IV SCH (16:09)
[2023-03-24] MEDS: MVI IV SCH (16:09)
[2023-03-24] MEDS: [UNRECOGNIZED DRUG - OTHER] IV SCH (16:09)
[2023-03-24] MEDS: CALCIUM GLUCONATE IV SCH (16:09)
[2023-03-24] MEDS: ONDANSETRON 4 MG/2 ML VIAL IV PRN (18:09)
[2023-03-24] MEDS: DULoxetine 20 MG CAPSULE PO SCH (20:20)
[2023-03-24] MEDS: SENNOSIDES 1 TABLET PO SCH (20:20)
[2023-03-25] MEDS: fentaNYL 100 MCG/2 ML VIAL IV PRN ×6 (01:42→22:36)
[2023-03-25] MEDS: 0.9 % SODIUM CHLORIDE 10 ML SYRINGE IV SCH ×5 (05:36→20:06)
[2023-03-25] MEDS: INSULIN LISPRO 1 UNIT/0.01 ML UNIT SQ SCH ×4 (05:38→23:43)
[2023-03-25] MEDS: PANTOPRAZOLE 40 MG VIAL IV SCH ×2 (06:49→16:20)
[2023-03-25] MEDS ORDERED: [UNRECOGNIZED DRUG - OTHER] IV SCH ×2 (07:00→15:00)
[2023-03-25] MEDS ORDERED: MAGNESIUM SULFATE IV SCH ×2 (07:00→15:00)
[2023-03-25] MEDS ORDERED: CALCIUM GLUCONATE IV SCH ×2 (07:00→15:00)
[2023-03-25] MEDS ORDERED: MVI IV SCH ×2 (07:00→15:00)
[2023-03-25] MEDS ORDERED: SODIUM CHLORIDE IV SCH ×2 (07:00→15:00)
[2023-03-25] MEDS: 0.9 % SODIUM CHLORIDE 1,000 ML IV SCH ×2 (09:08→18:40)
[2023-03-25] MEDS: DOCUSATE SODIUM 100 MG CAPSULE PO SCH ×2 (09:25→20:06)
[2023-03-25] MEDS: clonazePAM 1 MG TABLET PO SCH ×2 (09:25→20:05)
[2023-03-25] MEDS: POLYETHYLENE GLYCOL 3350 17 GM PACKET PO SCH ×2 (09:26→20:06)
[2023-03-25] MEDS: GABAPENTIN 300 MG CAPSULE PO SCH ×3 (09:27→20:05)
[2023-03-25] MEDS: NICOTINE 21 MG PATCH TOPICAL SCH (09:29)
[2023-03-25] MEDS: BUPRENORPHINE/NALOXONE 4MG/1MG ORAL FILM SL SCH ×2 (09:29→20:05)
[2023-03-25] MEDS: BUTALB/ACETAMINOPHEN/CAFFEINE 1 TABLET PO PRN (12:21)
[2023-03-25] MEDS: CARISOPRODOL 350 MG TABLET PO PRN ×2 (14:51→23:21)
[2023-03-25] MEDS: diphenhydrAMINE 50 MG/ML VIAL IV PRN ×2 (16:20→20:05)
[2023-03-25] MEDS: DULoxetine 20 MG CAPSULE PO SCH (20:05)
[2023-03-25] MEDS: SENNOSIDES 1 TABLET PO SCH (20:06)
[2023-03-26] MEDS: 0.9 % SODIUM CHLORIDE 1,000 ML IV SCH ×2 (03:16→14:24)
[2023-03-26] MEDS: fentaNYL 100 MCG/2 ML VIAL IV PRN ×5 (03:16→23:34)
[2023-03-26] MEDS: 0.9 % SODIUM CHLORIDE 10 ML SYRINGE IV SCH ×5 (04:58→20:14)
[2023-03-26] MEDS: INSULIN LISPRO 1 UNIT/0.01 ML UNIT SQ SCH ×3 (05:23→17:57)
[2023-03-26 05:41] LABS: Basophils # (Auto) 0.03 K/mcL (0.00-0.30); Basophils % (Auto) 0.4 % (0.0-2.0); Eosinophils % (Auto) 2.6 % (0.0-7.0); Hematocrit 34.3 % (34.1-44.9); Hemoglobin 10.1 g/dL (11.2-15.7); Lymphocytes # (Auto) 2.06 K/mcL (1.50-4.80); Lymphocytes % (Auto) 26.9 % (15.5-49.0); Mean Cell Volume 84.5 fL (80.0-100.0); Mean Corpuscular HGB Conc 29.4 g/dL (31.0-36.0); Mean Platelet Volume 8.6 fL (8.8-12.5); Monocytes % (Auto) 9.2 % (1.0-12.0); Neutrophils % (Auto) 60.5 % (38.0-78.0); Platelet Count 328 K/mcL (140-440); RBC 4.06 M/mcL (3.59-5.38); Red Cell Distribution Width 18.4 % (11.5-14.5); WBC 7.7 K/mcL (4.5-11.0)
[2023-03-26 05:54] LABS: ALT/SGPT 35 U/L (<40); AST/SGOT 47 U/L (<32); Albumin 3.1 gm/dL (3.2-5.2); Albumin/Globulin Ratio 1.1 (1.0-2.3); Alkaline Phosphatase 94 U/L (39-117); Bilirubin,Direct < 0.2 mg/dL (0-0.3); Bilirubin,Total < 0.2 mg/dL (0.1-1.0); Blood Urea Nitrogen 16 mg/dL (6-20); Carbon Dioxide 30 mmol/L (22-30); Chloride 102 mmol/L (96-108); Globulin 2.7 gm/dL (2.2-3.7); Glomerular Filtration Rate 127; Glucose 94 mg/dL (70-105); Lactate Dehydrogenase 192 U/L (135-225); Phosphorous 4.8 mg/dL (2.5-4.5); Triglycerides 170 mg/dL (<150); Uric Acid 1.4 mg/dL (2.5-8.0)
[2023-03-26] MEDS: PANTOPRAZOLE 40 MG VIAL IV SCH ×2 (07:47→16:00)
[2023-03-26] MEDS: BUPRENORPHINE/NALOXONE 4MG/1MG ORAL FILM SL SCH ×2 (07:47→20:10)
[2023-03-26] MEDS: GABAPENTIN 300 MG CAPSULE PO SCH ×3 (07:47→20:10)
[2023-03-26] MEDS: CARISOPRODOL 350 MG TABLET PO PRN ×2 (07:48→20:10)
[2023-03-26] MEDS: DOCUSATE SODIUM 100 MG CAPSULE PO SCH ×2 (07:48→20:09)
[2023-03-26] MEDS: clonazePAM 1 MG TABLET PO SCH ×2 (07:48→20:10)
[2023-03-26] MEDS: POLYETHYLENE GLYCOL 3350 17 GM PACKET PO SCH ×2 (07:48→20:10)
[2023-03-26] MEDS: BUTALB/ACETAMINOPHEN/CAFFEINE 1 TABLET PO PRN (12:36)
[2023-03-26] MEDS: NICOTINE 21 MG PATCH TOPICAL SCH (12:37)
[2023-03-26] MEDS: SENNOSIDES 1 TABLET PO SCH (20:10)
[2023-03-26] MEDS: diphenhydrAMINE 50 MG/ML VIAL IV PRN (20:10)
[2023-03-26] MEDS: DULoxetine 20 MG CAPSULE PO SCH (20:10)
[2023-03-27] MEDS: fentaNYL 100 MCG/2 ML VIAL IV PRN ×3 (03:29→13:27)
[2023-03-27] MEDS: diphenhydrAMINE 50 MG/ML VIAL IV PRN ×2 (04:11→10:21)
[2023-03-27] MEDS: CARISOPRODOL 350 MG TABLET PO PRN ×2 (05:06→10:21)
[2023-03-27] MEDS: 0.9 % SODIUM CHLORIDE 10 ML SYRINGE IV SCH ×3 (05:06→13:29)
[2023-03-27] MEDS: BUTALB/ACETAMINOPHEN/CAFFEINE 1 TABLET PO PRN (05:06)
[2023-03-27] MEDS: clonazePAM 1 MG TABLET PO SCH (08:11)
[2023-03-27] MEDS: BUPRENORPHINE/NALOXONE 4MG/1MG ORAL FILM SL SCH (08:11)
[2023-03-27] MEDS: PANTOPRAZOLE 40 MG VIAL IV SCH (08:11)
[2023-03-27] MEDS: DOCUSATE SODIUM 100 MG CAPSULE PO SCH (08:11)
[2023-03-27] MEDS: POLYETHYLENE GLYCOL 3350 17 GM PACKET PO SCH (08:12)
[2023-03-27] MEDS: GABAPENTIN 300 MG CAPSULE PO SCH (08:12)
[2023-03-27] MEDS: NICOTINE 21 MG PATCH TOPICAL SCH (09:09)
[2023-03-27] MEDS: ONDANSETRON 4 MG/2 ML VIAL IV PRN (09:13)
== END 2023-03-27 14:52 | disposition home or self-care (01) | DRG 391 ==
LOC: MEDSUR 13:54
PROVIDERS: ADMIT Family Medicine Adult Medicine; ATTEND Family Medicine Adult Medicine

== ENCOUNTER 2023-04-08 20:57 | Inpatient (IN) ==
[2023-04-08] MEDS ORDERED: IOPAMIDOL 100 ML BOTTLE IV ONE (20:58)
[2023-04-08] MEDS: LACTATED RINGERS 1,000 ML IV ONE (21:26)
[2023-04-08 21:40] LABS: Basophils # (Auto) 0.03 K/mcL (0.00-0.30); Basophils % (Auto) 0.3 % (0.0-2.0); Eosinophils # (Auto) 0.28 K/mcL (0.00-0.70); Eosinophils % (Auto) 2.9 % (0.0-7.0); Hematocrit 42.5 % (34.1-44.9); Hemoglobin 12.5 g/dL (11.2-15.7); Lymphocytes # (Auto) 2.78 K/mcL (1.50-4.80); Mean Cell Volume 85.7 fL (80.0-100.0); Mean Corpuscular HGB Conc 29.4 g/dL (31.0-36.0); Mean Platelet Volume 8.1 fL (8.8-12.5); Monocytes # (Auto) 0.73 K/mcL (0.10-0.90); Monocytes % (Auto) 7.6 % (1.0-12.0); Neutrophils % (Auto) 59.9 % (38.0-78.0); Platelet Count 570 K/mcL (140-440); RBC 4.96 M/mcL (3.59-5.38); WBC 9.6 K/mcL (4.5-11.0)
[2023-04-08] MEDS: diphenhydrAMINE 50 MG/ML VIAL IV ONE (21:45)
[2023-04-08] MEDS: METOCLOPRAMIDE 10 MG/2 ML VIAL IV ONE (21:45)
[2023-04-08] MEDS: KETOROLAC 15 MG/ML VIAL IV ONE (21:45)
[2023-04-08 22:02] LABS: ALT/SGPT 6 U/L (<40); AST/SGOT 26 U/L (<32); Albumin 3.9 gm/dL (3.2-5.2); Albumin/Globulin Ratio 1.5 (1.0-2.3); Alkaline Phosphatase 131 U/L (39-117); Bilirubin,Total < 0.2 mg/dL (0.1-1.0); Blood Urea Nitrogen 14 mg/dL (6-20); Calcium 9.2 mg/dL (8.6-10.4); Carbon Dioxide 31 mmol/L (22-30); Chloride 99 mmol/L (96-108); Globulin 2.6 gm/dL (2.2-3.7); Glomerular Filtration Rate 111; Glucose 92 mg/dL (70-105)
[2023-04-08 23:10] LABS: Appearance,Urine Clear (Clear); Bacteria,Urine Few /hpf (0); Bilirubin,Urine Negative (Negative); Color,Urine Yellow; Culture Indicated,Urine Yes; Glucose,Urine (UA) Negative (Negative); Ketones,Urine Negative (Negative); Leukocyte Esterase,Urine Negative /uL (Negative); Mucus,Urine Mod /hpf; Nitrate,Urine Negative (Negative); Protein,Urine Trace mg/dL (Negative); Specific Gravity,Urine 1.025 (1.000-1.035); Urine Blood Negative ery/mcL (Negative); Urine Hyaline Cast 1 /lph (0-2); Urine RBC 1 /hpf (0-3); Urine Squamous Epithelial Cell 2 /hpf (0-4); Urine WBC 5 /hpf (0-4); Urobilinogen,Urine Normal
[2023-04-08] MEDS: fentaNYL 100 MCG/2 ML VIAL IV ONE (23:47)
[2023-04-09] MEDS: fentaNYL 100 MCG/2 ML VIAL IV PRN (01:05)
[2023-04-09] MEDS: METOCLOPRAMIDE 10 MG/2 ML VIAL IV PRN (02:02)
[2023-04-09] MEDS: LACTATED RINGERS 1,000 ML IV SCH (02:27)
[2023-04-09] MEDS: METHYLNALTREXONE BROMIDE 12 MG/0.6 ML SYRINGE SC SCH (09:50)
[2023-04-09] MEDS ORDERED: ALBUTEROL SULFATE 60 PUFF INHALER INH PRN (20:16)
[2023-04-09] MEDS: CARISOPRODOL 350 MG TABLET PO PRN (21:13)
[2023-04-09] MEDS: clonazePAM 1 MG TABLET PO SCH (21:13)
[2023-04-09] MEDS: GABAPENTIN 300 MG CAPSULE PO SCH (21:13)
[2023-04-10 06:20] LABS: Basophils # (Auto) 0.02 K/mcL (0.00-0.30); Basophils % (Auto) 0.3 % (0.0-2.0); Eosinophils % (Auto) 3.1 % (0.0-7.0); Hematocrit 35.2 % (34.1-44.9); Hemoglobin 10.3 g/dL (11.2-15.7); Lymphocytes # (Auto) 2.62 K/mcL (1.50-4.80); Lymphocytes % (Auto) 40.8 % (15.5-49.0); Mean Cell Volume 86.5 fL (80.0-100.0); Mean Corpuscular HGB Conc 29.3 g/dL (31.0-36.0); Mean Platelet Volume 8.1 fL (8.8-12.5); Monocytes % (Auto) 7.8 % (1.0-12.0); Neutrophils % (Auto) 47.7 % (38.0-78.0); Platelet Count 451 K/mcL (140-440); RBC 4.07 M/mcL (3.59-5.38); Red Cell Distribution Width 18.9 % (11.5-14.5); WBC 6.4 K/mcL (4.5-11.0)
[2023-04-10 06:34] LABS: ALT/SGPT 10 U/L (<40); AST/SGOT 30 U/L (<32); Albumin 2.7 gm/dL (3.2-5.2); Albumin/Globulin Ratio 1.4 (1.0-2.3); Alkaline Phosphatase 97 U/L (39-117); Bilirubin,Direct < 0.2 mg/dL (0-0.3); Bilirubin,Total < 0.2 mg/dL (0.1-1.0); Blood Urea Nitrogen 11 mg/dL (6-20); Carbon Dioxide 24 mmol/L (22-30); Chloride 106 mmol/L (96-108); Glomerular Filtration Rate 118; Glucose 80 mg/dL (70-105); Lactate Dehydrogenase 185 U/L (135-225); Phosphorous 3.5 mg/dL (2.5-4.5); Triglycerides 157 mg/dL (<150); Uric Acid 2.5 mg/dL (2.5-8.0)
[2023-04-10] MEDS: NICOTINE 21 MG PATCH TOPICAL SCH (09:11)
[2023-04-10] MEDS: DULoxetine 20 MG CAPSULE PO SCH (09:12)
[2023-04-11 06:19] LABS: Basophils # (Auto) 0.02 K/mcL (0.00-0.30); Basophils % (Auto) 0.3 % (0.0-2.0); Eosinophils # (Auto) 0.27 K/mcL (0.00-0.70); Eosinophils % (Auto) 3.6 % (0.0-7.0); Hematocrit 36.1 % (34.1-44.9); Hemoglobin 10.5 g/dL (11.2-15.7); Lymphocytes # (Auto) 2.39 K/mcL (1.50-4.80); Mean Cell Volume 87.4 fL (80.0-100.0); Mean Corpuscular HGB Conc 29.1 g/dL (31.0-36.0); Mean Platelet Volume 8.3 fL (8.8-12.5); Monocytes # (Auto) 0.56 K/mcL (0.10-0.90); Monocytes % (Auto) 7.5 % (1.0-12.0); Neutrophils % (Auto) 55.9 % (38.0-78.0); Platelet Count 443 K/mcL (140-440); RBC 4.13 M/mcL (3.59-5.38); Red Cell Distribution Width 18.7 % (11.5-14.5); WBC 7.5 K/mcL (4.5-11.0)
[2023-04-11 06:25] LABS: ALT/SGPT 10 U/L (<40); AST/SGOT 27 U/L (<32); Albumin 2.7 gm/dL (3.2-5.2); Albumin/Globulin Ratio 1.2 (1.0-2.3); Alkaline Phosphatase 106 U/L (39-117); Bilirubin,Direct < 0.2 mg/dL (0-0.3); Bilirubin,Total < 0.2 mg/dL (0.1-1.0); Blood Urea Nitrogen 7 mg/dL (6-20); Calcium 8.1 mg/dL (8.6-10.4); Carbon Dioxide 22 mmol/L (22-30); Chloride 109 mmol/L (96-108); Globulin 2.2 gm/dL (2.2-3.7); Glomerular Filtration Rate 127; Glucose 84 mg/dL (70-105); Lactate Dehydrogenase 164 U/L (135-225); Phosphorous 3.6 mg/dL (2.5-4.5); Triglycerides 137 mg/dL (<150); Uric Acid 1.7 mg/dL (2.5-8.0)
[2023-04-11] MEDS: fentaNYL 100 MCG/2 ML VIAL IV PRN (16:55)
[2023-04-11] MEDS ORDERED: diphenhydrAMINE 50 MG/ML VIAL IV SCH (21:00)
[2023-04-11] MEDS ORDERED: MAGNESIUM OXIDE 400 MG TABLET PO SCH (21:00)
== END 2023-04-11 17:25 | disposition home or self-care (01) | DRG 388 ==
LOC: MEDSUR 20:57 → ED 20:57 → MEDSUR 04-09 00:55
PROVIDERS: ADMIT Family Medicine Adult Medicine; ATTEND Family Medicine Adult Medicine

== ENCOUNTER 2023-05-25 15:16 | Inpatient (IN) ==
[2023-05-25] MEDS ORDERED: IOPAMIDOL 100 ML BOTTLE IV ONE (15:17)
[2023-05-25] MEDS: MAG HYDROX/AL HYDROX/SIMETH 30 ML ORAL.SUSP PO ONE (16:07)
[2023-05-25] MEDS: PHENobarb/HYOSCY/ATROPINE/SCOP 1 DOSE BOTTLE PO ONE (16:07)
[2023-05-25 16:14] LABS: Basophils # (Auto) 0.01 K/mcL (0.00-0.30); Basophils % (Auto) 0.1 % (0.0-2.0); Eosinophils % (Auto) 1.3 % (0.0-7.0); Hemoglobin 12.4 g/dL (11.2-15.7); Lymphocytes % (Auto) 18.1 % (15.5-49.0); Mean Cell Volume 82.5 fL (80.0-100.0); Mean Corpuscular HGB Conc 30.2 g/dL (31.0-36.0); Mean Platelet Volume 8.4 fL (8.8-12.5); Monocytes # (Auto) 0.35 K/mcL (0.10-0.90); Monocytes % (Auto) 4.5 % (1.0-12.0); Neutrophils % (Auto) 75.9 % (38.0-78.0); Platelet Count 454 K/mcL (140-440); RBC 4.97 M/mcL (3.59-5.38); Red Cell Distribution Width 16.2 % (11.5-14.5); WBC 7.7 K/mcL (4.5-11.0)
[2023-05-25 16:43] LABS: ALT/SGPT 19 U/L (<40); AST/SGOT 25 U/L (<32); Albumin 3.3 gm/dL (3.2-5.2); Albumin/Globulin Ratio 1.2 (1.0-2.3); Alkaline Phosphatase 97 U/L (39-117); Bilirubin,Total < 0.2 mg/dL (0.1-1.0); Blood Urea Nitrogen 14 mg/dL (6-20); Calcium 8.9 mg/dL (8.6-10.4); Carbon Dioxide 24 mmol/L (22-30); Chloride 99 mmol/L (96-108); Globulin 2.8 gm/dL (2.2-3.7); Glomerular Filtration Rate 111; Glucose 133 mg/dL (70-105)
[2023-05-25] MEDS: ONDANSETRON 4 MG/2 ML VIAL IV ONE ×2 (17:42→20:52)
[2023-05-25] MEDS: PANTOPRAZOLE 40 MG VIAL IV ONE (17:45)
[2023-05-25] MEDS: 0.9 % SODIUM CHLORIDE 1,000 ML IV ONE (17:56)
[2023-05-25] MEDS: morphine 4 MG/ML VIAL IV PRN (20:39)
[2023-05-25] MEDS ORDERED: METHOCARBAMOL 750 MG TABLET PO PRN (21:35)
[2023-05-25] MEDS: HYDROmorphone 1 MG/ML SYRINGE IV PRN (21:55)
[2023-05-25] MEDS: 0.9 % SODIUM CHLORIDE 1,000 ML IV SCH (22:59)
[2023-05-25] MEDS: NICOTINE 21 MG PATCH TOPICAL ONE (22:59)
[2023-05-25] MEDS: 0.9 % SODIUM CHLORIDE 10 ML SYRINGE IV SCH (22:59)
[2023-05-26] MEDS: METOCLOPRAMIDE 10 MG/2 ML VIAL IV SCH (00:02)
[2023-05-26] MEDS: ONDANSETRON 4 MG/2 ML VIAL IV PRN (03:59)
[2023-05-26 06:17] LABS: Basophils # (Auto) 0.01 K/mcL (0.00-0.30); Basophils % (Auto) 0.1 % (0.0-2.0); Eosinophils # (Auto) 0.04 K/mcL (0.00-0.70); Eosinophils % (Auto) 0.4 % (0.0-7.0); Hematocrit 39.2 % (34.1-44.9); Hemoglobin 11.9 g/dL (11.2-15.7); Lymphocytes # (Auto) 1.32 K/mcL (1.50-4.80); Mean Cell Volume 82.5 fL (80.0-100.0); Mean Corpuscular HGB Conc 30.4 g/dL (31.0-36.0); Mean Platelet Volume 8.3 fL (8.8-12.5); Monocytes # (Auto) 0.56 K/mcL (0.10-0.90); Monocytes % (Auto) 5.1 % (1.0-12.0); Neutrophils % (Auto) 82.2 % (38.0-78.0); Platelet Count 422 K/mcL (140-440); RBC 4.75 M/mcL (3.59-5.38); Red Cell Distribution Width 16.1 % (11.5-14.5)
[2023-05-26 06:52] LABS: C-Reactive Protein 2.98 mg/dL (0.03-0.80)
[2023-05-26 07:05] LABS: ALT/SGPT 18 U/L (<40); AST/SGOT 15 U/L (<32); Albumin 3.1 gm/dL (3.2-5.2); Albumin/Globulin Ratio 1.3 (1.0-2.3); Alkaline Phosphatase 85 U/L (39-117); Bilirubin,Direct < 0.2 mg/dL (0-0.3); Bilirubin,Total < 0.2 mg/dL (0.1-1.0); Blood Urea Nitrogen 14 mg/dL (6-20); Calcium 8.5 mg/dL (8.6-10.4); Carbon Dioxide 27 mmol/L (22-30); Chloride 101 mmol/L (96-108); Globulin 2.4 gm/dL (2.2-3.7); Glomerular Filtration Rate 127; Glucose 87 mg/dL (70-105); Lactate Dehydrogenase 231 U/L (135-225); Phosphorous 4.5 mg/dL (2.5-4.5); Triglycerides 107 mg/dL (<150); Uric Acid 2.4 mg/dL (2.5-8.0)
[2023-05-26] MEDS: PANTOPRAZOLE 40 MG TABLET PO SCH (07:42)
[2023-05-26] MEDS: PANTOPRAZOLE 40 MG VIAL IV SCH (08:01)
[2023-05-26] MEDS: LORazepam 2 MG/ML VIAL IV PRN (08:15)
[2023-05-26] MEDS: DULoxetine 30 MG CAPSULE PO SCH (08:48)
[2023-05-26] MEDS: NICOTINE 21 MG PATCH TOPICAL SCH (10:30)
[2023-05-26] MEDS ORDERED: ALBUTEROL SULFATE 60 PUFF INHALER INH PRN (15:48)
[2023-05-26] MEDS: ACETAMINOPHEN 1,000 MG/100 ML BAG IV SCH (17:04)
[2023-05-26] MEDS: CARISOPRODOL 350 MG TABLET PO PRN (17:46)
[2023-05-26] MEDS: GABAPENTIN 300 MG CAPSULE PO PRN ×2 (17:58→22:20)
[2023-05-26] MEDS ORDERED: clonazePAM 1 MG TABLET PO PRN (21:00)
[2023-05-27] MEDS: DULoxetine 30 MG CAPSULE PO SCH (08:50)
== END 2023-05-27 13:19 | disposition home or self-care (01) | DRG 389 ==
LOC: ED 15:16 → MEDSUR 22:01
PROVIDERS: ADMIT Family Medicine Adult Medicine; ATTEND Family Medicine Adult Medicine

== ENCOUNTER 2023-06-25 08:51 | Inpatient (IN) ==
[2023-06-25] MEDS ORDERED: IOPAMIDOL 100 ML BOTTLE IV ONE (08:52)
[2023-06-25 10:01] LABS: Basophils # (Auto) 0 K/mcL (0.00-0.30); Basophils % (Auto) 0 % (0.0-2.0); Eosinophils # (Auto) 0.03 K/mcL (0.00-0.70); Eosinophils % (Auto) 0.4 % (0.0-7.0); Hematocrit 44.3 % (34.1-44.9); Hemoglobin 13.6 g/dL (11.2-15.7); Lymphocytes # (Auto) 1.45 K/mcL (1.50-4.80); Lymphocytes % (Auto) 19.1 % (15.5-49.0); Mean Cell Volume 81.1 fL (80.0-100.0); Mean Corpuscular HGB Conc 30.7 g/dL (31.0-36.0); Mean Platelet Volume 8.6 fL (8.8-12.5); Monocytes # (Auto) 0.26 K/mcL (0.10-0.90); Monocytes % (Auto) 3.4 % (1.0-12.0); Platelet Count 503 K/mcL (140-440); RBC 5.46 M/mcL (3.59-5.38); Red Cell Distribution Width 16.3 % (11.5-14.5); WBC 7.6 K/mcL (4.5-11.0)
[2023-06-25] MEDS: morphine 4 MG/ML VIAL IV ONE ×2 (10:05→10:48)
[2023-06-25] MEDS: ONDANSETRON 4 MG/2 ML VIAL IV ONE ×2 (10:06→11:13)
[2023-06-25 10:12] LABS: HCG,Serum Negative
[2023-06-25 10:20] LABS: ALT/SGPT 10 U/L (<40); AST/SGOT 28 U/L (<32); Albumin 3.6 gm/dL (3.2-5.2); Albumin/Globulin Ratio 1.3 (1.0-2.3); Alkaline Phosphatase 129 U/L (39-117); Bilirubin,Total < 0.2 mg/dL (0.1-1.0); Blood Urea Nitrogen 13 mg/dL (6-20); Calcium 9.2 mg/dL (8.6-10.4); Carbon Dioxide 28 mmol/L (22-30); Chloride 99 mmol/L (96-108); Globulin 2.8 gm/dL (2.2-3.7); Glomerular Filtration Rate 111; Glucose 117 mg/dL (70-105)
[2023-06-25] MEDS: METOCLOPRAMIDE 10 MG/2 ML VIAL IV ONE (11:33)
[2023-06-25] MEDS: HYDROmorphone 1 MG/ML SYRINGE IV ONE (12:33)
[2023-06-25] MEDS: LIDOCAINE 2% URO-JET 10 ML JEL.PF.APP UR ONE (12:39)
[2023-06-25] MEDS: METOCLOPRAMIDE 10 MG/2 ML VIAL IV SCH (13:14)
[2023-06-25] MEDS: DEXTROSE 5%-LR 1,000 ML IV SCH (13:19)
[2023-06-25] MEDS: HYDROmorphone 0.5 MG/0.5 ML SYRINGE IV PRN ×2 (13:41→17:35)
[2023-06-25] MEDS: LORazepam 2 MG/ML VIAL IV PRN (16:41)
[2023-06-25] MEDS: BENZOCAINE ONE 20% 1 SPRAY TOPICAL PRN (16:41)
[2023-06-25] MEDS: PANTOPRAZOLE 40 MG VIAL IV SCH (17:34)
[2023-06-25] MEDS ORDERED: ALBUTEROL SULFATE 60 PUFF INHALER INH PRN (20:28)
[2023-06-25] MEDS: BENZOCAINE/MENTHOL 1 LOZENGE PO PRN (21:25)
[2023-06-26 06:58] LABS: ALT/SGPT < 5 U/L (<40); AST/SGOT 18 U/L (<32); Albumin 3.1 gm/dL (3.2-5.2); Albumin/Globulin Ratio 1.2 (1.0-2.3); Alkaline Phosphatase 106 U/L (39-117); Bilirubin,Total < 0.2 mg/dL (0.1-1.0); Blood Urea Nitrogen 10 mg/dL (6-20); Calcium 8.7 mg/dL (8.6-10.4); Carbon Dioxide 27 mmol/L (22-30); Chloride 102 mmol/L (96-108); Globulin 2.5 gm/dL (2.2-3.7); Glomerular Filtration Rate 118; Glucose 122 mg/dL (70-105)
[2023-06-26 07:04] LABS: Hematocrit 40.2 % (34.1-44.9); Hemoglobin 12.2 g/dL (11.2-15.7); Mean Cell Volume 82.4 fL (80.0-100.0); Mean Corpuscular HGB Conc 30.3 g/dL (31.0-36.0); Platelet Count 378 K/mcL (140-440); RBC 4.88 M/mcL (3.59-5.38); Red Cell Distribution Width 16.3 % (11.5-14.5); WBC 10.1 K/mcL (4.5-11.0)
[2023-06-26] MEDS ORDERED: DIATRIZOATE MEGLU/DIATRIZO SOD 120ML BOTTLE PO ONE (10:44)
[2023-06-26] MEDS: diphenhydrAMINE 50 MG/ML VIAL IV PRN (18:07)
[2023-06-28] MEDS: DEXTROSE 5%-LR 1,000 ML IV SCH (18:45)
[2023-06-28] MEDS: GABAPENTIN 300 MG CAPSULE PO SCH (20:54)
[2023-06-29 07:24] LABS: ALT/SGPT 12 U/L (<40); AST/SGOT 26 U/L (<32); Albumin 2.6 gm/dL (3.2-5.2); Albumin/Globulin Ratio 1.3 (1.0-2.3); Alkaline Phosphatase 108 U/L (39-117); Bilirubin,Total < 0.2 mg/dL (0.1-1.0); Blood Urea Nitrogen 4 mg/dL (6-20); Calcium 7.6 mg/dL (8.6-10.4); Carbon Dioxide 20 mmol/L (22-30); Chloride 109 mmol/L (96-108); Glomerular Filtration Rate 127; Glucose 65 mg/dL (70-105)
[2023-06-29 07:59] LABS: Hematocrit 36.3 % (34.1-44.9); Hemoglobin 10.7 g/dL (11.2-15.7); Mean Cell Volume 85.6 fL (80.0-100.0); Mean Corpuscular HGB Conc 29.5 g/dL (31.0-36.0); Mean Platelet Volume 8.8 fL (8.8-12.5); Platelet Count 297 K/mcL (140-440); RBC 4.24 M/mcL (3.59-5.38); Red Cell Distribution Width 16.4 % (11.5-14.5); WBC 9.5 K/mcL (4.5-11.0)
[2023-06-29] MEDS: CARISOPRODOL 350 MG TABLET PO PRN (08:23)
[2023-06-29] MEDS: DULoxetine 20 MG CAPSULE PO SCH (08:23)
[2023-07-01 06:46] LABS: Hematocrit 34.3 % (34.1-44.9); Hemoglobin 10.5 g/dL (11.2-15.7); Mean Cell Volume 82.9 fL (80.0-100.0); Mean Corpuscular HGB Conc 30.6 g/dL (31.0-36.0); Mean Platelet Volume 8.5 fL (8.8-12.5); Platelet Count 309 K/mcL (140-440); RBC 4.14 M/mcL (3.59-5.38); Red Cell Distribution Width 16.3 % (11.5-14.5); WBC 9.4 K/mcL (4.5-11.0)
[2023-07-01 07:58] LABS: ALT/SGPT 10 U/L (<40); AST/SGOT 16 U/L (<32); Albumin 2.6 gm/dL (3.2-5.2); Albumin/Globulin Ratio 1.2 (1.0-2.3); Alkaline Phosphatase 101 U/L (39-117); Bilirubin,Total < 0.2 mg/dL (0.1-1.0); Blood Urea Nitrogen 10 mg/dL (6-20); Calcium 8.1 mg/dL (8.6-10.4); Carbon Dioxide 28 mmol/L (22-30); Chloride 104 mmol/L (96-108); Globulin 2.2 gm/dL (2.2-3.7); Glomerular Filtration Rate 127; Glucose 87 mg/dL (70-105)
[2023-07-01] MEDS: NICOTINE 21 MG PATCH TOPICAL SCH (14:49)
[2023-07-01] MEDS: oxyCODONE IR 5 MG TABLET PO PRN (17:28)
[2023-07-01] MEDS: HYDROmorphone 0.5 MG/0.5 ML SYRINGE IV PRN (17:56)
== END 2023-07-03 12:38 | disposition home or self-care (01) | DRG 389 ==
LOC: ED 08:51 → MEDSUR 13:26
PROVIDERS: ADMIT Surgery Surgical Critical Care; ATTEND Surgery Surgical Critical Care

== ENCOUNTER 2023-07-08 10:40 | Inpatient (IN) ==
[2023-07-07 15:34] LABS: Basophils # (Auto) 0.01 K/mcL (0.00-0.30); Basophils % (Auto) 0.1 % (0.0-2.0); Eosinophils # (Auto) 0.02 K/mcL (0.00-0.70); Eosinophils % (Auto) 0.2 % (0.0-7.0); Hematocrit 43.5 % (34.1-44.9); Hemoglobin 13.1 g/dL (11.2-15.7); Lymphocytes # (Auto) 1.71 K/mcL (1.50-4.80); Lymphocytes % (Auto) 21.3 % (15.5-49.0); Mean Cell Volume 82.7 fL (80.0-100.0); Mean Corpuscular HGB Conc 30.1 g/dL (31.0-36.0); Mean Platelet Volume 8.1 fL (8.8-12.5); Monocytes # (Auto) 0.38 K/mcL (0.10-0.90); Monocytes % (Auto) 4.7 % (1.0-12.0); Neutrophils % (Auto) 73.5 % (38.0-78.0); Platelet Count 513 K/mcL (140-440); RBC 5.26 M/mcL (3.59-5.38); Red Cell Distribution Width 16.5 % (11.5-14.5)
[2023-07-07 16:07] LABS: ALT/SGPT 10 U/L (<40); AST/SGOT 18 U/L (<32); Albumin 3.4 gm/dL (3.2-5.2); Albumin/Globulin Ratio 1.1 (1.0-2.3); Alkaline Phosphatase 110 U/L (39-117); Bilirubin,Total < 0.2 mg/dL (0.1-1.0); Blood Urea Nitrogen 14 mg/dL (6-20); Calcium 9.1 mg/dL (8.6-10.4); Carbon Dioxide 32 mmol/L (22-30); Chloride 99 mmol/L (96-108); Glomerular Filtration Rate 111; Glucose 128 mg/dL (70-105)
[2023-07-07 20:51] LABS: INR 0.8 (0.9-1.1); Prothrombin Time 12.1 sec (11.9-14.5)
[2023-07-08] MEDS ORDERED: PROPOFOL 200 MG/20 ML VIAL IV ONE (10:41)
[2023-07-08] MEDS ORDERED: SODIUM CHLORIDE IRRIG SOLUTION 250 ML BOTTLE IRR ONE (10:41)
[2023-07-08] MEDS: HYDROmorphone 0.5 MG/0.5 ML SYRINGE IV ONE (13:21)
[2023-07-08] MEDS: methylPREDNISolone SOD SUCC 125 MG/2 ML VIAL IV SCH (14:33)
[2023-07-08] MEDS: HYDROmorphone 1 MG/ML SYRINGE IV PRN (15:23)
[2023-07-08] MEDS: BUDESONIDE 3 MG CAP.XL.24H PO SCH (15:44)
[2023-07-08] MEDS: SUCRALFATE 1 GM/10 ML ORAL.SUSP PO SCH (17:54)
[2023-07-08] MEDS ORDERED: ONDANSETRON 4 MG/2 ML VIAL IV PRN ×2 (17:57→20:16)
[2023-07-08] MEDS ORDERED: PANTOPRAZOLE 80 MG in 0.9 % SODIUM CHLORIDE 100 ML IV SCH (18:30)
[2023-07-08] MEDS ORDERED: TPN PER PHARMACY IV SCH ×2 (18:30→20:30)
[2023-07-08] MEDS ORDERED: LORazepam (PP) 1 MG TABLET (#4) PO PRN (19:28)
[2023-07-08] MEDS ORDERED: clonazePAM 1 MG TABLET PO PRN (19:28)
[2023-07-08] MEDS: LORazepam 2 MG/ML VIAL ONE (20:14)
[2023-07-08] MEDS: LORazepam 1 MG TABLET PO PRN (20:17)
[2023-07-08] MEDS: PANTOPRAZOLE 40 MG VIAL IV ONE (20:39)
[2023-07-08] MEDS: PANTOPRAZOLE 80 MG in 0.9 % SODIUM CHLORIDE 100 ML IV SCH (20:42)
[2023-07-08] MEDS ORDERED: methylPREDNISolone SOD SUCC 125 MG/2 ML VIAL IV SCH (21:00)
[2023-07-08] MEDS: GABAPENTIN 300 MG CAPSULE PO SCH (21:26)
[2023-07-08] MEDS: 0.9 % SODIUM CHLORIDE 10 ML SYRINGE IV SCH ×2 (21:26)
[2023-07-08] MEDS ORDERED: 0.9 % SODIUM CHLORIDE 10 ML SYRINGE IV SCH (22:00)
[2023-07-09] MEDS: clonazePAM 1 MG TABLET PO PRN (00:51)
[2023-07-09] MEDS: CARISOPRODOL 350 MG TABLET PO PRN ×2 (04:00→19:07)
[2023-07-09] MEDS: PANTOPRAZOLE 40 MG VIAL IV ONE (06:33)
[2023-07-09 08:36] LABS: Basophils # (Auto) 0.01 K/mcL (0.00-0.30); Basophils % (Auto) 0.2 % (0.0-2.0); Eosinophils # (Auto) 0 K/mcL (0.00-0.70); Eosinophils % (Auto) 0 % (0.0-7.0); Hematocrit 35.1 % (34.1-44.9); Hemoglobin 10.8 g/dL (11.2-15.7); Lymphocytes # (Auto) 1.06 K/mcL (1.50-4.80); Lymphocytes % (Auto) 20.5 % (15.5-49.0); Mean Cell Volume 83.8 fL (80.0-100.0); Mean Corpuscular HGB Conc 30.8 g/dL (31.0-36.0); Monocytes # (Auto) 0.16 K/mcL (0.10-0.90); Monocytes % (Auto) 3.1 % (1.0-12.0); Neutrophils % (Auto) 75.6 % (38.0-78.0); Platelet Count 418 K/mcL (140-440); RBC 4.19 M/mcL (3.59-5.38); Red Cell Distribution Width 16.4 % (11.5-14.5); WBC 5.2 K/mcL (4.5-11.0)
[2023-07-09 08:44] LABS: C-Reactive Protein 0.63 mg/dL (0.03-0.80)
[2023-07-09 09:05] LABS: ALT/SGPT < 5 U/L (<40); AST/SGOT 11 U/L (<32); Albumin 2.8 gm/dL (3.2-5.2); Albumin/Globulin Ratio 1.3 (1.0-2.3); Alkaline Phosphatase 79 U/L (39-117); Bilirubin,Direct < 0.2 mg/dL (0-0.3); Bilirubin,Total < 0.2 mg/dL (0.1-1.0); Blood Urea Nitrogen 10 mg/dL (6-20); Calcium 8.4 mg/dL (8.6-10.4); Carbon Dioxide 25 mmol/L (22-30); Chloride 104 mmol/L (96-108); Globulin 2.1 gm/dL (2.2-3.7); Glomerular Filtration Rate 118; Glucose 178 mg/dL (70-105); Lactate Dehydrogenase 126 U/L (135-225); Phosphorous 3.9 mg/dL (2.5-4.5); Triglycerides 150 mg/dL (<150); Uric Acid 2.6 mg/dL (2.5-8.0)
[2023-07-09] MEDS: DULoxetine 30 MG CAPSULE PO SCH (09:21)
[2023-07-09] MEDS: NICOTINE 21 MG PATCH TOPICAL SCH (09:25)
[2023-07-09 10:25] LABS: Prealbumin 20.7 mg/dL (20.0-40.0)
[2023-07-09] MEDS ORDERED: clonazePAM 1 MG TABLET PO PRN (14:40)
[2023-07-09] MEDS ORDERED: TPN PER PHARMACY IV SCH (14:45)
[2023-07-09] MEDS: GABAPENTIN 300 MG CAPSULE PO SCH (14:50)
[2023-07-09] MEDS ORDERED: [UNRECOGNIZED DRUG - OTHER] IV SCH (15:00)
[2023-07-09] MEDS ORDERED: CALCIUM GLUCONATE IV SCH (15:00)
[2023-07-09] MEDS ORDERED: MAGNESIUM SULFATE IV SCH (15:00)
[2023-07-09] MEDS ORDERED: POTASSIUM CHLORIDE IV SCH (15:00)
[2023-07-09] MEDS: HYDROmorphone 1 MG/ML SYRINGE IV PRN (15:34)
[2023-07-09] MEDS: LORazepam 2 MG/ML VIAL IV SCH (15:37)
[2023-07-09] MEDS: [UNRECOGNIZED DRUG - OTHER] IV SCH (15:54)
[2023-07-09] MEDS: POTASSIUM CHLORIDE IV SCH (15:54)
[2023-07-09] MEDS: CALCIUM GLUCONATE IV SCH (15:54)
[2023-07-09] MEDS: MAGNESIUM SULFATE IV SCH (15:54)
[2023-07-09] MEDS: PANTOPRAZOLE 80 MG in 0.9 % SODIUM CHLORIDE 100 ML IV SCH (15:55)
[2023-07-09] MEDS ORDERED: DEXTROSE 31 GM ORAL.SUSP PO PRN (16:45)
[2023-07-09] MEDS ORDERED: DEXTROSE 50% 50 ML VIAL IV PRN (16:45)
[2023-07-09] MEDS: METOCLOPRAMIDE 10 MG/2 ML VIAL IV SCH (17:46)
[2023-07-09] MEDS: SUCRALFATE 1 GM/10 ML ORAL.SUSP PO SCH (17:46)
[2023-07-09] MEDS: INSULIN LISPRO 1 UNIT/0.01 ML UNIT SQ SCH (17:55)
[2023-07-09] MEDS ORDERED: PANTOPRAZOLE 80 MG in 0.9 % SODIUM CHLORIDE 100 ML IV SCH (18:00)
[2023-07-09] MEDS: 0.9 % SODIUM CHLORIDE 10 ML SYRINGE IV SCH (19:13)
[2023-07-09] MEDS: methylPREDNISolone SOD SUCC 125 MG/2 ML VIAL IV SCH (21:39)
[2023-07-09] MEDS: BUDESONIDE 3 MG CAP.XL.24H PO SCH (21:39)
[2023-07-10 06:49] LABS: ALT/SGPT 14 U/L (<40); AST/SGOT 31 U/L (<32); Albumin 2.9 gm/dL (3.2-5.2); Albumin/Globulin Ratio 1.5 (1.0-2.3); Alkaline Phosphatase 75 U/L (39-117); Bilirubin,Direct < 0.2 mg/dL (0-0.3); Bilirubin,Total < 0.2 mg/dL (0.1-1.0); Blood Urea Nitrogen 7 mg/dL (6-20); Calcium 8.1 mg/dL (8.6-10.4); Carbon Dioxide 22 mmol/L (22-30); Chloride 106 mmol/L (96-108); Globulin 1.9 gm/dL (2.2-3.7); Glomerular Filtration Rate 139; Glucose 132 mg/dL (70-105); Lactate Dehydrogenase 137 U/L (135-225); Phosphorous 2.3 mg/dL (2.5-4.5); Triglycerides 114 mg/dL (<150); Uric Acid 1.8 mg/dL (2.5-8.0)
[2023-07-10] MEDS: DULoxetine 30 MG CAPSULE PO SCH (08:27)
[2023-07-10] MEDS: NICOTINE 21 MG PATCH TOPICAL SCH (10:24)
[2023-07-10] MEDS: [UNRECOGNIZED DRUG - REMARK] IV SCH (16:14)
[2023-07-10] MEDS: FAT EMULSION 20% 250 ML IV SCH (16:14)
[2023-07-10] MEDS ORDERED: ACETAMINOPHEN 1,000 MG/100 ML BAG IV SCH (17:00)
[2023-07-10] MEDS: ACETAMINOPHEN 600 MG/60 ML BAG IV SCH (20:52)
[2023-07-10] MEDS: MAG HYDROX/AL HYDROX/SIMETH 30 ML ORAL.SUSP PO PRN (21:10)
[2023-07-11] MEDS: ONDANSETRON 4 MG/2 ML VIAL IV PRN (05:34)
[2023-07-11 07:51] LABS: Prealbumin 26.6 mg/dL (20.0-40.0)
[2023-07-11 10:27] LABS: ALT/SGPT 42 U/L (<40); AST/SGOT 45 U/L (<32); Albumin/Globulin Ratio 1.5 (1.0-2.3); Alkaline Phosphatase 82 U/L (39-117); Bilirubin,Direct < 0.2 mg/dL (0-0.3); Bilirubin,Total < 0.2 mg/dL (0.1-1.0); Blood Urea Nitrogen 8 mg/dL (6-20); Calcium 8.1 mg/dL (8.6-10.4); Carbon Dioxide 21 mmol/L (22-30); Chloride 104 mmol/L (96-108); Glomerular Filtration Rate 139; Glucose 129 mg/dL (70-105); Lactate Dehydrogenase 157 U/L (135-225); Phosphorous 3.2 mg/dL (2.5-4.5); Triglycerides 105 mg/dL (<150); Uric Acid 1.4 mg/dL (2.5-8.0)
[2023-07-11] MEDS ORDERED: [UNRECOGNIZED DRUG - REMARK] IV SCH ×2 (11:00)
[2023-07-11] MEDS ORDERED: [UNRECOGNIZED DRUG - REMARK] IV SCH (11:00)
[2023-07-11] MEDS: [UNRECOGNIZED DRUG - REMARK] IV SCH (12:24)
[2023-07-11] MEDS: POLYETHYLENE GLYCOL 3350 17 GM PACKET PO SCH (14:20)
[2023-07-11] MEDS: diphenhydrAMINE 50 MG/ML VIAL IV PRN (14:20)
[2023-07-12 06:53] LABS: ALT/SGPT 53 U/L (<40); AST/SGOT 48 U/L (<32); Albumin 2.9 gm/dL (3.2-5.2); Albumin/Globulin Ratio 1.5 (1.0-2.3); Alkaline Phosphatase 75 U/L (39-117); Bilirubin,Direct < 0.2 mg/dL (0-0.3); Bilirubin,Total < 0.2 mg/dL (0.1-1.0); Blood Urea Nitrogen 9 mg/dL (6-20); Calcium 8.3 mg/dL (8.6-10.4); Carbon Dioxide 27 mmol/L (22-30); Chloride 106 mmol/L (96-108); Globulin 1.9 gm/dL (2.2-3.7); Glomerular Filtration Rate 139; Glucose 94 mg/dL (70-105); Lactate Dehydrogenase 157 U/L (135-225); Phosphorous 2.9 mg/dL (2.5-4.5); Triglycerides 116 mg/dL (<150); Uric Acid 1.1 mg/dL (2.5-8.0)
[2023-07-12] MEDS: [UNRECOGNIZED DRUG - REMARK] IV SCH (12:18)
[2023-07-12] MEDS ORDERED: ACETAMINOPHEN 650 MG/65 ML BAG IV SCH (17:30)
[2023-07-12] MEDS: ACETAMINOPHEN 650 MG/65 ML BAG IV ONE (17:38)
[2023-07-12] MEDS: LORazepam 2 MG/ML VIAL IV SCH (17:49)
[2023-07-12] MEDS: ACETAMINOPHEN 650 MG/65 ML BAG IV SCH (17:49)
[2023-07-12] MEDS: MAG HYDROX/AL HYDROX/SIMETH 30 ML ORAL.SUSP PO SCH (17:51)
[2023-07-12] MEDS: PANTOPRAZOLE 40 MG VIAL IV SCH (20:05)
[2023-07-13] MEDS: HYDROmorphone 0.5 MG/0.5 ML SYRINGE IV PRN (17:54)
[2023-07-14 09:22] LABS: ALT/SGPT 69 U/L (<40); AST/SGOT 28 U/L (<32); Albumin/Globulin Ratio 1.5 (1.0-2.3); Alkaline Phosphatase 77 U/L (39-117); Bilirubin,Direct < 0.2 mg/dL (0-0.3); Bilirubin,Total < 0.2 mg/dL (0.1-1.0); Blood Urea Nitrogen 14 mg/dL (6-20); Calcium 8.7 mg/dL (8.6-10.4); Carbon Dioxide 32 mmol/L (22-30); Chloride 100 mmol/L (96-108); Glomerular Filtration Rate 139; Glucose 107 mg/dL (70-105); Lactate Dehydrogenase 147 U/L (135-225); Phosphorous 3.7 mg/dL (2.5-4.5); Triglycerides 81 mg/dL (<150)
[2023-07-14] MEDS: [UNRECOGNIZED DRUG - REMARK] IV SCH (12:40)
[2023-07-15 06:43] LABS: ALT/SGPT 62 U/L (<40); AST/SGOT 24 U/L (<32); Albumin 3.1 gm/dL (3.2-5.2); Albumin/Globulin Ratio 1.6 (1.0-2.3); Alkaline Phosphatase 75 U/L (39-117); Bilirubin,Direct < 0.2 mg/dL (0-0.3); Bilirubin,Total < 0.2 mg/dL (0.1-1.0); Blood Urea Nitrogen 16 mg/dL (6-20); Calcium 8.7 mg/dL (8.6-10.4); Carbon Dioxide 30 mmol/L (22-30); Chloride 100 mmol/L (96-108); Globulin 1.9 gm/dL (2.2-3.7); Glomerular Filtration Rate 139; Glucose 108 mg/dL (70-105); Lactate Dehydrogenase 176 U/L (135-225); Phosphorous 3.9 mg/dL (2.5-4.5); Triglycerides 76 mg/dL (<150); Uric Acid 1.2 mg/dL (2.5-8.0)
[2023-07-15] MEDS ORDERED: fentaNYL 100 MCG/2 ML VIAL ONE (09:53)
[2023-07-15] MEDS ORDERED: MIDAZOLAM 2 MG/2 ML VIAL ONE (09:54)
[2023-07-15] MEDS ORDERED: PROPOFOL 200 MG/20 ML VIAL IV ONE (12:13)
[2023-07-15] MEDS: [UNRECOGNIZED DRUG - REMARK] IV SCH (12:32)
[2023-07-15] MEDS: FLUCONAZOLE 200 MG/100 ML BAG IV SCH (12:32)
[2023-07-15] MEDS: NYSTATIN 500,000 UNITS/5 ML ORAL.SUSP SSW SCH (13:05)
[2023-07-16 06:02] LABS: Basophils # (Auto) 0 K/mcL (0.00-0.30); Basophils % (Auto) 0 % (0.0-2.0); Eosinophils # (Auto) 0 K/mcL (0.00-0.70); Eosinophils % (Auto) 0 % (0.0-7.0); Hematocrit 32.9 % (34.1-44.9); Lymphocytes # (Auto) 0.67 K/mcL (1.50-4.80); Lymphocytes % (Auto) 6.1 % (15.5-49.0); Mean Cell Volume 83.5 fL (80.0-100.0); Mean Corpuscular HGB Conc 30.4 g/dL (31.0-36.0); Mean Platelet Volume 9.1 fL (8.8-12.5); Monocytes # (Auto) 0.25 K/mcL (0.10-0.90); Monocytes % (Auto) 2.3 % (1.0-12.0); Neutrophils % (Auto) 91.1 % (38.0-78.0); Platelet Count 385 K/mcL (140-440); RBC 3.94 M/mcL (3.59-5.38); WBC 10.9 K/mcL (4.5-11.0)
[2023-07-16 06:31] LABS: ALT/SGPT 58 U/L (<40); AST/SGOT 27 U/L (<32); Albumin/Globulin Ratio 1.4 (1.0-2.3); Alkaline Phosphatase 73 U/L (39-117); Bilirubin,Direct < 0.2 mg/dL (0-0.3); Bilirubin,Total < 0.2 mg/dL (0.1-1.0); Blood Urea Nitrogen 15 mg/dL (6-20); Calcium 8.7 mg/dL (8.6-10.4); Carbon Dioxide 25 mmol/L (22-30); Chloride 102 mmol/L (96-108); Globulin 2.1 gm/dL (2.2-3.7); Glomerular Filtration Rate 139; Glucose 117 mg/dL (70-105); Lactate Dehydrogenase 230 U/L (135-225); Phosphorous 4.8 mg/dL (2.5-4.5); Triglycerides 75 mg/dL (<150); Uric Acid 1.6 mg/dL (2.5-8.0)
[2023-07-16] MEDS: [UNRECOGNIZED DRUG - REMARK] IV SCH (12:16)
[2023-07-16] MEDS: METHOCARBAMOL 1,000 MG/10 ML VIAL IV SCH (19:00)
[2023-07-17] MEDS: [UNRECOGNIZED DRUG - REMARK] IV SCH (12:55)
[2023-07-17] MEDS: NICOTINE 21 MG PATCH TOPICAL SCH (13:14)
[2023-07-17] MEDS: fentaNYL 100 MCG/2 ML VIAL IV PRN (13:54)
[2023-07-17] MEDS ORDERED: GABAPENTIN 300 MG CAPSULE PO SCH (15:00)
[2023-07-18 08:36] LABS: ALT/SGPT 53 U/L (<40); AST/SGOT 14 U/L (<32); Albumin 3.2 gm/dL (3.2-5.2); Albumin/Globulin Ratio 1.7 (1.0-2.3); Alkaline Phosphatase 72 U/L (39-117); Bilirubin,Direct < 0.2 mg/dL (0-0.3); Bilirubin,Total < 0.2 mg/dL (0.1-1.0); Blood Urea Nitrogen 13 mg/dL (6-20); Calcium 8.5 mg/dL (8.6-10.4); Carbon Dioxide 25 mmol/L (22-30); Chloride 103 mmol/L (96-108); Globulin 1.9 gm/dL (2.2-3.7); Glomerular Filtration Rate 139; Glucose 108 mg/dL (70-105); Lactate Dehydrogenase 177 U/L (135-225); Phosphorous 2.6 mg/dL (2.5-4.5); Triglycerides 121 mg/dL (<150); Uric Acid 1.2 mg/dL (2.5-8.0)
[2023-07-18 09:09] LABS: Basophils # (Auto) 0.01 K/mcL (0.00-0.30); Basophils % (Auto) 0.1 % (0.0-2.0); Eosinophils # (Auto) 0 K/mcL (0.00-0.70); Eosinophils % (Auto) 0 % (0.0-7.0); Hematocrit 41.2 % (34.1-44.9); Hemoglobin 11.9 g/dL (11.2-15.7); Lymphocytes # (Auto) 0.76 K/mcL (1.50-4.80); Lymphocytes % (Auto) 6.2 % (15.5-49.0); Mean Cell Volume 88.6 fL (80.0-100.0); Mean Corpuscular HGB Conc 28.9 g/dL (31.0-36.0); Mean Platelet Volume 8.8 fL (8.8-12.5); Monocytes # (Auto) 0.35 K/mcL (0.10-0.90); Monocytes % (Auto) 2.8 % (1.0-12.0); Neutrophils % (Auto) 89.6 % (38.0-78.0); Platelet Count 393 K/mcL (140-440); RBC 4.65 M/mcL (3.59-5.38); Red Cell Distribution Width 17.2 % (11.5-14.5); WBC 12.4 K/mcL (4.5-11.0)
[2023-07-18] MEDS: [UNRECOGNIZED DRUG - REMARK] IV SCH (12:57)
[2023-07-18] MEDS: HYDROmorphone 0.5 MG/0.5 ML SYRINGE IV PRN (19:06)
[2023-07-18] MEDS: HYDROmorphone 0.5 MG/0.5 ML SYRINGE ONE (20:28)
[2023-07-20 06:29] LABS: Basophils # (Auto) 0 K/mcL (0.00-0.30); Basophils % (Auto) 0 % (0.0-2.0); Eosinophils # (Auto) 0 K/mcL (0.00-0.70); Eosinophils % (Auto) 0 % (0.0-7.0); Hematocrit 31.6 % (34.1-44.9); Hemoglobin 9.7 g/dL (11.2-15.7); Lymphocytes # (Auto) 0.78 K/mcL (1.50-4.80); Lymphocytes % (Auto) 6.6 % (15.5-49.0); Mean Cell Volume 82.5 fL (80.0-100.0); Mean Corpuscular HGB Conc 30.7 g/dL (31.0-36.0); Mean Platelet Volume 8.7 fL (8.8-12.5); Monocytes # (Auto) 0.78 K/mcL (0.10-0.90); Monocytes % (Auto) 6.6 % (1.0-12.0); Neutrophils % (Auto) 85.5 % (38.0-78.0); Platelet Count 341 K/mcL (140-440); RBC 3.83 M/mcL (3.59-5.38); Red Cell Distribution Width 17.2 % (11.5-14.5); WBC 11.8 K/mcL (4.5-11.0)
[2023-07-20 06:44] LABS: ALT/SGPT 57 U/L (<40); AST/SGOT 27 U/L (<32); Albumin 3.2 gm/dL (3.2-5.2); Albumin/Globulin Ratio 1.9 (1.0-2.3); Alkaline Phosphatase 67 U/L (39-117); Bilirubin,Direct < 0.2 mg/dL (0-0.3); Bilirubin,Total < 0.2 mg/dL (0.1-1.0); Blood Urea Nitrogen 15 mg/dL (6-20); Calcium 8.2 mg/dL (8.6-10.4); Carbon Dioxide 27 mmol/L (22-30); Chloride 103 mmol/L (96-108); Globulin 1.7 gm/dL (2.2-3.7); Glomerular Filtration Rate 139; Glucose 105 mg/dL (70-105); Lactate Dehydrogenase 217 U/L (135-225); Phosphorous 2.8 mg/dL (2.5-4.5); Triglycerides 92 mg/dL (<150); Uric Acid 1.3 mg/dL (2.5-8.0)
[2023-07-21] MEDS: HYDROmorphone 1 MG/ML SYRINGE IV ONE (14:41)
== END 2023-07-21 15:09 | disposition home or self-care (01) | DRG 380 ==
LOC: SSSU 10:40 → MEDSUR 07-09 12:23
PROVIDERS: ADMIT Family Medicine Adult Medicine; ATTEND Family Medicine Adult Medicine

== ENCOUNTER 2023-07-23 17:29 | Inpatient (IN) ==
[2023-07-23] MEDS ORDERED: IOPAMIDOL 100 ML BOTTLE IV ONE (17:30)
[2023-07-23] MEDS: ONDANSETRON 4 MG/2 ML VIAL IV ONE (18:16)
[2023-07-23] MEDS: KETOROLAC 15 MG/ML VIAL IV ONE (18:16)
[2023-07-23 18:22] LABS: Basophils # (Auto) 0 K/mcL (0.00-0.30); Basophils % (Auto) 0 % (0.0-2.0); Eosinophils # (Auto) 0.25 K/mcL (0.00-0.70); Eosinophils % (Auto) 1.5 % (0.0-7.0); Hematocrit 31.3 % (34.1-44.9); Hemoglobin 9.6 g/dL (11.2-15.7); Lymphocytes # (Auto) 0.93 K/mcL (1.50-4.80); Lymphocytes % (Auto) 5.7 % (15.5-49.0); Mean Cell Volume 83.2 fL (80.0-100.0); Mean Corpuscular HGB Conc 30.7 g/dL (31.0-36.0); Mean Platelet Volume 8.7 fL (8.8-12.5); Monocytes # (Auto) 0.41 K/mcL (0.10-0.90); Monocytes % (Auto) 2.5 % (1.0-12.0); Platelet Count 305 K/mcL (140-440); RBC 3.76 M/mcL (3.59-5.38); Red Cell Distribution Width 18.1 % (11.5-14.5); WBC 16.3 K/mcL (4.5-11.0)
[2023-07-23] MEDS: ACETAMINOPHEN 650 MG/65 ML BAG IV ONE (18:32)
[2023-07-23 18:50] LABS: ALT/SGPT 42 U/L (<40); AST/SGOT 29 U/L (<32); Albumin/Globulin Ratio 1.5 (1.0-2.3); Alkaline Phosphatase 85 U/L (39-117); Bilirubin,Total < 0.2 mg/dL (0.1-1.0); Blood Urea Nitrogen 20 mg/dL (6-20); Calcium 8.3 mg/dL (8.6-10.4); Carbon Dioxide 25 mmol/L (22-30); Chloride 104 mmol/L (96-108); Glomerular Filtration Rate 127; Glucose 352 mg/dL (70-105)
[2023-07-23] MEDS: LACTATED RINGERS 1,000 ML IV ONE (19:11)
[2023-07-23] MEDS: HYDROmorphone 0.5 MG/0.5 ML SYRINGE IV ONE (19:11)
[2023-07-23] MEDS: CEFEPIME 1 GM VIAL IV ONE (20:16)
[2023-07-23] MEDS: HYDROmorphone 0.5 MG/0.5 ML SYRINGE IV PRN ×2 (20:28→22:40)
[2023-07-23] MEDS: VANCOMYCIN 1,000 MG in 0.9 % SODIUM CHLORIDE 250 ML IV ONE (20:46)
[2023-07-23] MEDS: DEXTROSE 5%-LR 1,000 ML IV SCH (22:12)
[2023-07-23] MEDS: PIPERACILLIN SODIUM/TAZOBACTAM 3.375 GM in DEXTROSE 5% IN WATER 100 ML IV SCH (23:01)
[2023-07-23] MEDS: NICOTINE 21 MG PATCH TOPICAL SCH (23:02)
[2023-07-23] MEDS: GABAPENTIN 300 MG CAPSULE PO SCH (23:02)
[2023-07-23] MEDS: LORazepam 1 MG TABLET PO PRN (23:02)
[2023-07-23] MEDS: GABAPENTIN 300 MG CAPSULE ONE (23:03)
[2023-07-23] MEDS: NICOTINE 21 MG PATCH ONE (23:03)
[2023-07-23] MEDS: LORazepam 1 MG TABLET ONE (23:03)
[2023-07-24] MEDS: SUCRALFATE 1 GM/10 ML ORAL.SUSP PO ONE (00:19)
[2023-07-24] MEDS: ONDANSETRON 4 MG/2 ML VIAL IV PRN (05:09)
[2023-07-24 05:52] LABS: Hematocrit 28.4 % (34.1-44.9); Hemoglobin 8.8 g/dL (11.2-15.7); Mean Cell Volume 83.8 fL (80.0-100.0); Mean Platelet Volume 8.7 fL (8.8-12.5); Platelet Count 280 K/mcL (140-440); RBC 3.39 M/mcL (3.59-5.38); Red Cell Distribution Width 18.2 % (11.5-14.5); WBC 10.4 K/mcL (4.5-11.0)
[2023-07-24 07:01] LABS: Blood Urea Nitrogen 13 mg/dL (6-20); Calcium 8.3 mg/dL (8.6-10.4); Carbon Dioxide 29 mmol/L (22-30); Chloride 103 mmol/L (96-108); Glomerular Filtration Rate 139; Glucose 87 mg/dL (70-105)
[2023-07-24] MEDS: PANTOPRAZOLE 40 MG VIAL IV SCH (07:15)
[2023-07-24] MEDS: 0.9 % SODIUM CHLORIDE 10 ML SYRINGE IV PRN (08:15)
[2023-07-24] MEDS: 0.9 % SODIUM CHLORIDE 10 ML SYRINGE IV SCH (08:15)
[2023-07-24 08:39] LABS: ALT/SGPT 38 U/L (<40); AST/SGOT 23 U/L (<32); Albumin 2.9 gm/dL (3.2-5.2); Albumin/Globulin Ratio 1.5 (1.0-2.3); Alkaline Phosphatase 75 U/L (39-117); Bilirubin,Direct < 0.2 mg/dL (0-0.3); Bilirubin,Total < 0.2 mg/dL (0.1-1.0); Blood Urea Nitrogen 14 mg/dL (6-20); Calcium 8.4 mg/dL (8.6-10.4); Carbon Dioxide 27 mmol/L (22-30); Chloride 104 mmol/L (96-108); Glomerular Filtration Rate 139; Glucose 87 mg/dL (70-105); Lactate Dehydrogenase 291 U/L (135-225); Phosphorous 2.7 mg/dL (2.5-4.5); Triglycerides 93 mg/dL (<150)
[2023-07-24 09:03] LABS: Prealbumin 31.1 mg/dL (20.0-40.0)
[2023-07-24] MEDS ORDERED: ACETAMINOPHEN 160 MG/5 ML ORAL.SOL PO PRN (10:09)
[2023-07-24] MEDS: MAG HYDROX/AL HYDROX/SIMETH 30 ML ORAL.SUSP PO PRN (10:32)
[2023-07-24] MEDS: DEXTROSE 5%-LR 1,000 ML IV SCH (10:33)
[2023-07-24] MEDS: INSULIN LISPRO 1 UNIT/0.01 ML UNIT SQ SCH (11:54)
[2023-07-24] MEDS: ACETAMINOPHEN 325 MG TABLET PO PRN (11:57)
[2023-07-24] MEDS: HYDROmorphone 1 MG/ML SYRINGE IV PRN ×2 (12:53→16:59)
[2023-07-24] MEDS: SODIUM CHLORIDE IV SCH (13:59)
[2023-07-24] MEDS: [UNRECOGNIZED DRUG - OTHER] IV SCH (13:59)
[2023-07-24] MEDS: POTASSIUM CHLORIDE IV SCH (13:59)
[2023-07-24] MEDS: MAGNESIUM SULFATE IV SCH (13:59)
[2023-07-24] MEDS ORDERED: TPN PER PHARMACY IV SCH (14:00)
[2023-07-25 06:51] LABS: Basophils # (Auto) 0.01 K/mcL (0.00-0.30); Basophils % (Auto) 0.1 % (0.0-2.0); Eosinophils # (Auto) 0.13 K/mcL (0.00-0.70); Eosinophils % (Auto) 1.7 % (0.0-7.0); Hematocrit 26.5 % (34.1-44.9); Hemoglobin 8.1 g/dL (11.2-15.7); Lymphocytes % (Auto) 14.7 % (15.5-49.0); Mean Cell Volume 81.8 fL (80.0-100.0); Mean Corpuscular HGB Conc 30.6 g/dL (31.0-36.0); Monocytes # (Auto) 0.47 K/mcL (0.10-0.90); Monocytes % (Auto) 6.3 % (1.0-12.0); Neutrophils % (Auto) 76.7 % (38.0-78.0); Platelet Count 255 K/mcL (140-440); RBC 3.24 M/mcL (3.59-5.38); Red Cell Distribution Width 18.4 % (11.5-14.5); WBC 7.5 K/mcL (4.5-11.0)
[2023-07-25 07:07] LABS: ALT/SGPT 29 U/L (<40); AST/SGOT 18 U/L (<32); Albumin 2.9 gm/dL (3.2-5.2); Albumin/Globulin Ratio 1.5 (1.0-2.3); Alkaline Phosphatase 76 U/L (39-117); Bilirubin,Direct < 0.2 mg/dL (0-0.3); Bilirubin,Total < 0.2 mg/dL (0.1-1.0); Blood Urea Nitrogen 9 mg/dL (6-20); Calcium 8.2 mg/dL (8.6-10.4); Carbon Dioxide 31 mmol/L (22-30); Chloride 102 mmol/L (96-108); Globulin 1.9 gm/dL (2.2-3.7); Glomerular Filtration Rate 159; Glucose 109 mg/dL (70-105); Lactate Dehydrogenase 253 U/L (135-225); Phosphorous 2.6 mg/dL (2.5-4.5); Triglycerides 166 mg/dL (<150); Uric Acid 0.7 mg/dL (2.5-8.0)
[2023-07-25] MEDS: NYSTATIN 500,000 UNITS/5 ML ORAL.SUSP SSW SCH (12:39)
[2023-07-25] MEDS: DULoxetine 30 MG CAPSULE PO SCH ×2 (12:39→13:23)
[2023-07-25] MEDS ORDERED: clonazePAM 1 MG TABLET PO PRN (13:17)
[2023-07-25] MEDS ORDERED: ONDANSETRON (PP) 4 MG TABLET PO PRN (13:17)
[2023-07-25] MEDS ORDERED: LORazepam 0.5 MG TABLET PO PRN (13:17)
[2023-07-25] MEDS ORDERED: NYSTATIN 500,000 UNITS/5 ML ORAL.SUSP PO SCH (14:00)
[2023-07-25] MEDS: HYDROcodone/APAP 5/325MG TABLET PO PRN (14:09)
[2023-07-25] MEDS: BUDESONIDE 3 MG CAP.XL.24H PO SCH (14:10)
[2023-07-25] MEDS: POTASSIUM CHLORIDE IV SCH (14:11)
[2023-07-25] MEDS: SODIUM CHLORIDE IV SCH (14:11)
[2023-07-25] MEDS: [UNRECOGNIZED DRUG - OTHER] IV SCH (14:11)
[2023-07-25] MEDS: MAGNESIUM SULFATE IV SCH (14:11)
[2023-07-25] MEDS ORDERED: GABAPENTIN 300 MG CAPSULE PO SCH (15:00)
[2023-07-25] MEDS ORDERED: SUCRALFATE 1 GM/10 ML ORAL.SUSP PO SCH (17:00)
[2023-07-25] MEDS: SUCRALFATE 1 GM/10 ML ORAL.SUSP PO SCH (17:04)
[2023-07-25] MEDS: METOCLOPRAMIDE 10 MG TABLET PO SCH (17:04)
[2023-07-26 06:38] LABS: ALT/SGPT 31 U/L (<40); AST/SGOT 22 U/L (<32); Albumin/Globulin Ratio 1.6 (1.0-2.3); Alkaline Phosphatase 86 U/L (39-117); Bilirubin,Direct < 0.2 mg/dL (0-0.3); Bilirubin,Total < 0.2 mg/dL (0.1-1.0); Blood Urea Nitrogen 9 mg/dL (6-20); Calcium 8.1 mg/dL (8.6-10.4); Carbon Dioxide 29 mmol/L (22-30); Chloride 103 mmol/L (96-108); Globulin 1.9 gm/dL (2.2-3.7); Glomerular Filtration Rate 159; Glucose 100 mg/dL (70-105); Lactate Dehydrogenase 241 U/L (135-225); Phosphorous 2.8 mg/dL (2.5-4.5); Triglycerides 159 mg/dL (<150); Uric Acid 0.7 mg/dL (2.5-8.0)
[2023-07-26] MEDS: DEXTROSE 5%-LR 1,000 ML IV SCH (07:45)
[2023-07-26] MEDS ORDERED: BUDESONIDE 3 MG CAP.XL.24H PO SCH (09:00)
[2023-07-26] MEDS ORDERED: NON FORMULARY MEDICATION 1 DOSE MISCELL (Duloxetine 60 mg capsule,delayed release(DR/EC)) PO SCH (09:00)
[2023-07-26] MEDS ORDERED: DULoxetine 30 MG CAPSULE PO SCH (09:00)
[2023-07-26] MEDS ORDERED: [UNRECOGNIZED DRUG - OTHER] TOPICAL SCH (10:00)
[2023-07-26] MEDS ORDERED: NICOTINE 21 MG/24 HR TOPICAL SCH (10:00)
[2023-07-26] MEDS: FLUCONAZOLE 100 MG TABLET PO SCH (13:04)
[2023-07-26] MEDS: POTASSIUM CHLORIDE IV SCH (13:59)
[2023-07-26] MEDS: MAGNESIUM SULFATE IV SCH (13:59)
[2023-07-26] MEDS: [UNRECOGNIZED DRUG - OTHER] IV SCH (13:59)
[2023-07-26] MEDS: SODIUM CHLORIDE IV SCH (13:59)
[2023-07-26] MEDS: FAT EMULSION 20% 250 ML IV SCH (17:54)
[2023-07-26] MEDS: cefTRIAXone 2 GM VIAL ONE (18:14)
[2023-07-26] MEDS: metroNIDAZOLE 500 MG/100 ML BAG IV SCH (18:14)
[2023-07-26] MEDS: oxyCODONE IR 5 MG TABLET PO PRN (18:14)
[2023-07-26] MEDS: morphine 4 MG/ML VIAL IV PRN (18:14)
[2023-07-26] MEDS: cefTRIAXone 2 GM in DEXTROSE 5% IN WATER 50 ML IV SCH (18:15)
[2023-07-27 06:30] LABS: ALT/SGPT 43 U/L (<40); AST/SGOT 32 U/L (<32); Albumin/Globulin Ratio 1.4 (1.0-2.3); Alkaline Phosphatase 99 U/L (39-117); Bilirubin,Direct < 0.2 mg/dL (0-0.3); Bilirubin,Total < 0.2 mg/dL (0.1-1.0); Blood Urea Nitrogen 8 mg/dL (6-20); Calcium 8.3 mg/dL (8.6-10.4); Carbon Dioxide 25 mmol/L (22-30); Chloride 103 mmol/L (96-108); Globulin 2.1 gm/dL (2.2-3.7); Glomerular Filtration Rate 139; Glucose 90 mg/dL (70-105); Lactate Dehydrogenase 249 U/L (135-225); Prealbumin 37.5 mg/dL (20.0-40.0); Triglycerides 258 mg/dL (<150); Uric Acid 1.1 mg/dL (2.5-8.0)
[2023-07-27] MEDS: cefTRIAXone 2 GM VIAL ONE (08:13)
[2023-07-27] MEDS: MAGNESIUM SULFATE IV SCH (14:03)
[2023-07-27] MEDS: POTASSIUM CHLORIDE IV SCH (14:03)
[2023-07-27] MEDS: [UNRECOGNIZED DRUG - OTHER] IV SCH (14:03)
[2023-07-27] MEDS: SODIUM CHLORIDE IV SCH (14:03)
[2023-07-27] MEDS: INSULIN LISPRO 1 UNIT/0.01 ML UNIT SQ SCH (18:37)
[2023-07-28 06:32] LABS: ALT/SGPT 39 U/L (<40); AST/SGOT 25 U/L (<32); Albumin 3.1 gm/dL (3.2-5.2); Albumin/Globulin Ratio 1.4 (1.0-2.3); Alkaline Phosphatase 108 U/L (39-117); Bilirubin,Direct < 0.2 mg/dL (0-0.3); Bilirubin,Total < 0.2 mg/dL (0.1-1.0); Blood Urea Nitrogen 10 mg/dL (6-20); Calcium 8.4 mg/dL (8.6-10.4); Carbon Dioxide 27 mmol/L (22-30); Chloride 108 mmol/L (96-108); Globulin 2.2 gm/dL (2.2-3.7); Glomerular Filtration Rate 159; Glucose 92 mg/dL (70-105); Lactate Dehydrogenase 227 U/L (135-225); Triglycerides 130 mg/dL (<150); Uric Acid 1.3 mg/dL (2.5-8.0)
[2023-07-28 07:52] LABS: Prealbumin 34.8 mg/dL (20.0-40.0)
[2023-07-28] MEDS: cefTRIAXone 2 GM VIAL ONE (08:06)
[2023-07-28 14:01] LABS: Appearance,Urine Clear (Clear); Bilirubin,Urine Negative (Negative); Color,Urine Yellow; Culture Indicated,Urine No; Glucose,Urine (UA) Negative (Negative); Ketones,Urine Negative (Negative); Leukocyte Esterase,Urine Negative /uL (Negative); Nitrate,Urine Negative (Negative); Protein,Urine Negative (Negative); Specific Gravity,Urine 1.025 (1.000-1.035); Urine Blood Trace-intact ery/mcL (Negative); Urine RBC 0 /hpf (0-3); Urine Squamous Epithelial Cell 0 /hpf (0-4); Urine WBC 0 /hpf (0-4); Urobilinogen,Urine Normal
[2023-07-28] MEDS ORDERED: DEXAMETHASONE 10 MG/ML VIAL ONE (14:30)
[2023-07-28] MEDS ORDERED: PROPOFOL 200 MG/20 ML VIAL IV ONE (14:31)
[2023-07-28] MEDS ORDERED: fentaNYL 100 MCG/2 ML VIAL ONE (14:31)
[2023-07-28] MEDS ORDERED: BENZOCAINE/MENTHOL 1 LOZENGE PO PRN (14:57)
[2023-07-28] MEDS ORDERED: IPRATROPIUM/ALBUTEROL 3 ML AMPUL.NEB NEB PRN (14:57)
[2023-07-28] MEDS ORDERED: ONDANSETRON 4 MG/2 ML VIAL IV PRN (14:57)
[2023-07-28] MEDS: fentaNYL 100 MCG/2 ML VIAL IV PRN (15:22)
[2023-07-28] MEDS: HYDROmorphone 0.5 MG/0.5 ML SYRINGE IV ONE (15:40)
[2023-07-29] MEDS: cefTRIAXone 2 GM VIAL ONE (09:22)
[2023-07-29 13:13] LABS: ALT/SGPT 50 U/L (<40); AST/SGOT 32 U/L (<32); Albumin 3.2 gm/dL (3.2-5.2); Albumin/Globulin Ratio 1.5 (1.0-2.3); Alkaline Phosphatase 120 U/L (39-117); Bilirubin,Direct < 0.2 mg/dL (0-0.3); Bilirubin,Total < 0.2 mg/dL (0.1-1.0); Blood Urea Nitrogen 11 mg/dL (6-20); Calcium 8.1 mg/dL (8.6-10.4); Carbon Dioxide 19 mmol/L (22-30); Chloride 109 mmol/L (96-108); Globulin 2.1 gm/dL (2.2-3.7); Glomerular Filtration Rate 139; Glucose 122 mg/dL (70-105); Lactate Dehydrogenase 242 U/L (135-225); Phosphorous 2.2 mg/dL (2.5-4.5); Triglycerides 99 mg/dL (<150); Uric Acid 1.4 mg/dL (2.5-8.0)
[2023-07-29] MEDS: MAGNESIUM SULFATE IV SCH (13:58)
[2023-07-29] MEDS: POTASSIUM CHLORIDE IV SCH (13:58)
[2023-07-29] MEDS: SODIUM CHLORIDE IV SCH (13:58)
[2023-07-29] MEDS: [UNRECOGNIZED DRUG - OTHER] IV SCH (13:58)
[2023-07-30 06:15] LABS: ALT/SGPT 48 U/L (<40); AST/SGOT 32 U/L (<32); Albumin 3.1 gm/dL (3.2-5.2); Albumin/Globulin Ratio 1.7 (1.0-2.3); Alkaline Phosphatase 117 U/L (39-117); Bilirubin,Direct < 0.2 mg/dL (0-0.3); Bilirubin,Total < 0.2 mg/dL (0.1-1.0); Blood Urea Nitrogen 12 mg/dL (6-20); Calcium 8.2 mg/dL (8.6-10.4); Carbon Dioxide 21 mmol/L (22-30); Chloride 112 mmol/L (96-108); Globulin 1.8 gm/dL (2.2-3.7); Glomerular Filtration Rate 139; Glucose 84 mg/dL (70-105); Lactate Dehydrogenase 237 U/L (135-225); Phosphorous 4.1 mg/dL (2.5-4.5); Triglycerides 95 mg/dL (<150); Uric Acid 1.5 mg/dL (2.5-8.0)
[2023-07-30] MEDS: CLINDAMYCIN IN 0.9 % SOD CHLOR 600 MG/50 ML BAG IV SCH (12:57)
[2023-07-30] MEDS: POTASSIUM CHLORIDE IV SCH (14:33)
[2023-07-30] MEDS: MAGNESIUM SULFATE IV SCH (14:33)
[2023-07-30] MEDS: SODIUM CHLORIDE IV SCH (14:33)
[2023-07-30] MEDS: [UNRECOGNIZED DRUG - OTHER] IV SCH (14:33)
[2023-07-31 07:11] LABS: ALT/SGPT 40 U/L (<40); AST/SGOT 17 U/L (<32); Albumin 3.4 gm/dL (3.2-5.2); Albumin/Globulin Ratio 1.6 (1.0-2.3); Alkaline Phosphatase 134 U/L (39-117); Bilirubin,Direct < 0.2 mg/dL (0-0.3); Bilirubin,Total < 0.2 mg/dL (0.1-1.0); Blood Urea Nitrogen 13 mg/dL (6-20); Calcium 8.5 mg/dL (8.6-10.4); Carbon Dioxide 21 mmol/L (22-30); Chloride 112 mmol/L (96-108); Globulin 2.1 gm/dL (2.2-3.7); Glomerular Filtration Rate 139; Glucose 79 mg/dL (70-105); Lactate Dehydrogenase 216 U/L (135-225); Phosphorous 3.8 mg/dL (2.5-4.5); Triglycerides 219 mg/dL (<150); Uric Acid 1.8 mg/dL (2.5-8.0)
[2023-07-31] MEDS: METHYLNALTREXONE BROMIDE 12 MG/0.6 ML SYRINGE SQ SCH (15:08)
[2023-07-31] MEDS: POTASSIUM CHLORIDE IV SCH (15:13)
[2023-07-31] MEDS: POTASSIUM PHOSPHATE IV SCH (15:13)
[2023-07-31] MEDS: [UNRECOGNIZED DRUG - OTHER] IV SCH (15:13)
[2023-07-31] MEDS: MVI IV SCH (15:13)
[2023-07-31] MEDS: MAGNESIUM SULFATE IV SCH (15:13)
[2023-07-31] MEDS: LORazepam 2 MG/ML VIAL IV PRN (15:25)
[2023-08-01 07:11] LABS: Basophils # (Auto) 0.03 K/mcL (0.00-0.30); Basophils % (Auto) 0.4 % (0.0-2.0); Eosinophils # (Auto) 0.17 K/mcL (0.00-0.70); Eosinophils % (Auto) 2.3 % (0.0-7.0); Hematocrit 30.7 % (34.1-44.9); Hemoglobin 9.6 g/dL (11.2-15.7); Lymphocytes # (Auto) 1.92 K/mcL (1.50-4.80); Lymphocytes % (Auto) 25.7 % (15.5-49.0); Mean Cell Volume 81.2 fL (80.0-100.0); Mean Corpuscular HGB Conc 31.3 g/dL (31.0-36.0); Mean Platelet Volume 8.9 fL (8.8-12.5); Monocytes # (Auto) 0.51 K/mcL (0.10-0.90); Monocytes % (Auto) 6.8 % (1.0-12.0); Neutrophils % (Auto) 64.4 % (38.0-78.0); Platelet Count 382 K/mcL (140-440); RBC 3.78 M/mcL (3.59-5.38); Red Cell Distribution Width 18.1 % (11.5-14.5); WBC 7.5 K/mcL (4.5-11.0)
[2023-08-01 07:25] LABS: ALT/SGPT 32 U/L (<40); AST/SGOT 16 U/L (<32); Albumin 3.6 gm/dL (3.2-5.2); Albumin/Globulin Ratio 1.6 (1.0-2.3); Alkaline Phosphatase 130 U/L (39-117); Bilirubin,Direct < 0.2 mg/dL (0-0.3); Bilirubin,Total < 0.2 mg/dL (0.1-1.0); Blood Urea Nitrogen 13 mg/dL (6-20); Calcium 8.9 mg/dL (8.6-10.4); Carbon Dioxide 25 mmol/L (22-30); Chloride 105 mmol/L (96-108); Globulin 2.2 gm/dL (2.2-3.7); Glomerular Filtration Rate 139; Glucose 104 mg/dL (70-105); Lactate Dehydrogenase 219 U/L (135-225); Phosphorous 3.8 mg/dL (2.5-4.5); Triglycerides 102 mg/dL (<150); Uric Acid 1.7 mg/dL (2.5-8.0)
[2023-08-01] MEDS: METHYLNALTREXONE BROMIDE 12 MG/0.6 ML SYRINGE SQ SCH (12:04)
[2023-08-01] MEDS: MVI IV SCH (15:43)
[2023-08-01] MEDS: POTASSIUM PHOSPHATE IV SCH (15:43)
[2023-08-01] MEDS: MAGNESIUM SULFATE IV SCH (15:43)
[2023-08-01] MEDS: POTASSIUM CHLORIDE IV SCH (15:43)
[2023-08-01] MEDS: [UNRECOGNIZED DRUG - OTHER] IV SCH (15:43)
[2023-08-01] MEDS: MAG HYDROX/AL HYDROX/SIMETH 30 ML ORAL.SUSP PO PRN (19:08)
[2023-08-01] MEDS: KETOROLAC 30 MG/ML VIAL IV SCH (19:40)
[2023-08-02 07:04] LABS: ALT/SGPT 25 U/L (<40); AST/SGOT 11 U/L (<32); Albumin 3.8 gm/dL (3.2-5.2); Albumin/Globulin Ratio 1.6 (1.0-2.3); Alkaline Phosphatase 132 U/L (39-117); Bilirubin,Direct < 0.2 mg/dL (0-0.3); Bilirubin,Total < 0.2 mg/dL (0.1-1.0); Blood Urea Nitrogen 26 mg/dL (6-20); Calcium 9.1 mg/dL (8.6-10.4); Carbon Dioxide 24 mmol/L (22-30); Chloride 99 mmol/L (96-108); Globulin 2.4 gm/dL (2.2-3.7); Glomerular Filtration Rate 127; Glucose 90 mg/dL (70-105); Lactate Dehydrogenase 228 U/L (135-225); Phosphorous 4.8 mg/dL (2.5-4.5); Triglycerides 136 mg/dL (<150); Uric Acid 2.2 mg/dL (2.5-8.0)
[2023-08-02] MEDS: [UNRECOGNIZED DRUG - REMARK] IV SCH (15:52)
[2023-08-03 07:31] LABS: ALT/SGPT 23 U/L (<40); AST/SGOT 13 U/L (<32); Albumin 3.9 gm/dL (3.2-5.2); Albumin/Globulin Ratio 1.6 (1.0-2.3); Alkaline Phosphatase 127 U/L (39-117); Bilirubin,Direct < 0.2 mg/dL (0-0.3); Bilirubin,Total < 0.2 mg/dL (0.1-1.0); Blood Urea Nitrogen 18 mg/dL (6-20); Carbon Dioxide 23 mmol/L (22-30); Chloride 102 mmol/L (96-108); Globulin 2.4 gm/dL (2.2-3.7); Glomerular Filtration Rate 139; Glucose 87 mg/dL (70-105); Lactate Dehydrogenase 232 U/L (135-225); Phosphorous 3.6 mg/dL (2.5-4.5); Triglycerides 207 mg/dL (<150); Uric Acid 2.4 mg/dL (2.5-8.0)
[2023-08-03] MEDS: [UNRECOGNIZED DRUG - REMARK] IV SCH (15:45)
[2023-08-03] MEDS: NICOTINE 21 MG PATCH TOPICAL SCH (18:01)
[2023-08-04 07:46] LABS: ALT/SGPT 23 U/L (<40); AST/SGOT 15 U/L (<32); Albumin 3.6 gm/dL (3.2-5.2); Albumin/Globulin Ratio 1.6 (1.0-2.3); Alkaline Phosphatase 117 U/L (39-117); Bilirubin,Direct < 0.2 mg/dL (0-0.3); Bilirubin,Total < 0.2 mg/dL (0.1-1.0); Blood Urea Nitrogen 21 mg/dL (6-20); Calcium 9.1 mg/dL (8.6-10.4); Carbon Dioxide 24 mmol/L (22-30); Chloride 104 mmol/L (96-108); Globulin 2.3 gm/dL (2.2-3.7); Glomerular Filtration Rate 139; Glucose 107 mg/dL (70-105); Lactate Dehydrogenase 200 U/L (135-225); Phosphorous 4.4 mg/dL (2.5-4.5); Triglycerides 145 mg/dL (<150)
== END 2023-08-04 10:00 | disposition home or self-care (01) | DRG 579 ==
LOC: ED 17:29 → ICU 21:36 → MEDSUR 07-31 16:18
PROVIDERS: ADMIT Surgery Surgical Critical Care; ATTEND Family Medicine Adult Medicine

== ENCOUNTER 2023-10-19 10:20 | Inpatient (IN) ==
[2023-10-19] MEDS ORDERED: ONDANSETRON 4 MG/2 ML VIAL IV PRN ×2 (10:53→10:58)
[2023-10-19] MEDS ORDERED: HYDROmorphone 0.5 MG/0.5 ML SYRINGE IV PRN (10:58)
[2023-10-19] MEDS: HYDROmorphone 0.5 MG/0.5 ML SYRINGE IV PRN (12:23)
[2023-10-19] MEDS: 0.9 % SODIUM CHLORIDE 1,000 ML IV SCH (12:24)
[2023-10-19 13:43] LABS: ALT/SGPT 7 U/L (<40); AST/SGOT 19 U/L (<32); Albumin 3.3 gm/dL (3.2-5.2); Albumin/Globulin Ratio 1.1 (1.0-2.3); Alkaline Phosphatase 125 U/L (39-117); Bilirubin,Direct < 0.2 mg/dL (0-0.3); Bilirubin,Total < 0.2 mg/dL (0.1-1.0); Blood Urea Nitrogen 16 mg/dL (6-20); Calcium 8.9 mg/dL (8.6-10.4); Carbon Dioxide 22 mmol/L (22-30); Chloride 100 mmol/L (96-108); Glomerular Filtration Rate 105; Glucose 88 mg/dL (70-105); Lactate Dehydrogenase 115 U/L (135-225); Potassium 3.2 mmol/L (3.3-5.1); Sodium 136 mmol/L (133-145); Triglycerides 278 mg/dL (<150); Uric Acid 3.6 mg/dL (2.5-8.0)
[2023-10-19] MEDS: NICOTINE 21 MG PATCH TOPICAL SCH (14:02)
[2023-10-19] MEDS: SUCRALFATE 1 GM/10 ML ORAL.SUSP PO SCH (14:02)
[2023-10-19] MEDS: oxyCODONE IR 5 MG TABLET PO PRN (14:03)
[2023-10-19] MEDS: 0.9 % SODIUM CHLORIDE 10 ML SYRINGE IV SCH (14:04)
[2023-10-19] MEDS ORDERED: PIPERACILLIN SODIUM/TAZOBACTAM 3.375 GM in DEXTROSE 5% IN WATER 100 ML IV SCH (14:15)
[2023-10-19 14:26] LABS: Basophils # (Auto) 0.01 K/mcL (0.00-0.30); Basophils % (Auto) 0.4 % (0.0-2.0); Eosinophils # (Auto) 0.01 K/mcL (0.00-0.70); Eosinophils % (Auto) 0.4 % (0.0-7.0); Hematocrit 31.7 % (34.1-44.9); Hemoglobin 9.4 g/dL (11.2-15.7); Lymphocytes # (Auto) 0.58 K/mcL (1.50-4.80); Lymphocytes % (Auto) 22.4 % (15.5-49.0); Mean Cell Volume 78.5 fL (80.0-100.0); Mean Corpuscular HGB Conc 29.7 g/dL (31.0-36.0); Mean Platelet Volume 9.9 fL (8.8-12.5); Monocytes # (Auto) 0.08 K/mcL (0.10-0.90); Monocytes % (Auto) 3.1 % (1.0-12.0); Neutrophils % (Auto) 73.3 % (38.0-78.0); Platelet Count 204 K/mcL (140-440); RBC 4.04 M/mcL (3.59-5.38); Red Cell Distribution Width 16.8 % (11.5-14.5); WBC 2.6 K/mcL (4.5-11.0)
[2023-10-19 15:37] LABS: Appearance,Urine Clear (Clear); Bilirubin,Urine Negative (Negative); Color,Urine Yellow; Culture Indicated,Urine No; Glucose,Urine (UA) Negative (Negative); Ketones,Urine Negative (Negative); Leukocyte Esterase,Urine Negative /uL (Negative); Mucus,Urine Mod /hpf; Nitrate,Urine Negative (Negative); Protein,Urine 30 mg/dL (Negative); Urine Blood Negative ery/mcL (Negative); Urine Hyaline Cast 20 /lph (0-2); Urine RBC 5 /hpf (0-3); Urine Renal Epithelial Cells 1 /hpf (0-2); Urine Squamous Epithelial Cell 1 /hpf (0-4); Urine WBC 5 /hpf (0-4); Urobilinogen,Urine Normal
[2023-10-19] MEDS ORDERED: IOPAMIDOL 100 ML BOTTLE IV ONE (15:53)
[2023-10-19] MEDS: PIPERACILLIN SODIUM/TAZOBACTAM 3.375 GM in DEXTROSE 5% IN WATER 50 ML IV SCH (16:01)
[2023-10-19] MEDS: PANTOPRAZOLE 40 MG VIAL IV SCH (16:41)
[2023-10-19] MEDS: CARISOPRODOL 350 MG TABLET PO PRN (16:52)
[2023-10-19] MEDS: PIPERACILLIN SODIUM/TAZOBACTAM 3.375 GM in DEXTROSE 5% IN WATER 100 ML IV SCH (18:44)
[2023-10-19] MEDS: ONDANSETRON 4 MG/2 ML VIAL IV PRN (18:49)
[2023-10-20 06:35] LABS: Basophils # (Auto) 0.02 K/mcL (0.00-0.30); Basophils % (Auto) 0.6 % (0.0-2.0); Eosinophils # (Auto) 0.07 K/mcL (0.00-0.70); Hematocrit 27.7 % (34.1-44.9); Hemoglobin 8.4 g/dL (11.2-15.7); Lymphocytes # (Auto) 0.74 K/mcL (1.50-4.80); Lymphocytes % (Auto) 21.1 % (15.5-49.0); Mean Corpuscular HGB Conc 30.3 g/dL (31.0-36.0); Mean Platelet Volume 9.3 fL (8.8-12.5); Monocytes # (Auto) 0.43 K/mcL (0.10-0.90); Monocytes % (Auto) 12.3 % (1.0-12.0); Neutrophils % (Auto) 63.7 % (38.0-78.0); Platelet Count 223 K/mcL (140-440); RBC 3.55 M/mcL (3.59-5.38); Red Cell Distribution Width 16.9 % (11.5-14.5); WBC 3.5 K/mcL (4.5-11.0)
[2023-10-20] MEDS ORDERED: VANCOMYCIN PER PHARMACY IV SCH (07:51)
[2023-10-20] MEDS ORDERED: DIATRIZOATE MEGLU/DIATRIZO SOD 120ML BOTTLE PO ONE (08:54)
[2023-10-20] MEDS: DULoxetine 30 MG CAPSULE PO SCH (09:19)
[2023-10-20] MEDS: NICOTINE 21 MG PATCH TOPICAL SCH (09:21)
[2023-10-20] MEDS: BUDESONIDE 3 MG CAP.XL.24H PO SCH (09:22)
[2023-10-20] MEDS: FLUCONAZOLE 200 MG/100 ML BAG IV SCH (10:18)
[2023-10-20] MEDS: VANCOMYCIN 750 MG in 0.9 % SODIUM CHLORIDE 250 ML IV SCH (11:10)
[2023-10-20] MEDS: clonazePAM 1 MG TABLET PO PRN (12:17)
[2023-10-20] MEDS: SCOPOLAMINE 1 PATCH PATCH TOPICAL SCH (12:18)
[2023-10-20] MEDS: 0.9 % SODIUM CHLORIDE 500 ML IV ONE (13:16)
[2023-10-20] MEDS: ALBUMIN HUMAN 25 GM/100 ML BAG IV ONE (13:45)
[2023-10-20] MEDS: GABAPENTIN 300 MG CAPSULE PO SCH (14:31)
[2023-10-20] MEDS: 0.9 % SODIUM CHLORIDE 1,000 ML IV SCH (15:07)
[2023-10-21 06:34] LABS: Erythrocyte Sedimentation Rate 10 mm/hr (0-20)
[2023-10-21 06:44] LABS: Basophils # (Auto) 0.02 K/mcL (0.00-0.30); Basophils % (Auto) 0.2 % (0.0-2.0); Eosinophils % (Auto) 1.2 % (0.0-7.0); Hematocrit 25.3 % (34.1-44.9); Hemoglobin 7.4 g/dL (11.2-15.7); Lymphocytes # (Auto) 1.48 K/mcL (1.50-4.80); Lymphocytes % (Auto) 17.9 % (15.5-49.0); Mean Cell Volume 80.8 fL (80.0-100.0); Mean Corpuscular HGB Conc 29.2 g/dL (31.0-36.0); Mean Platelet Volume 9.3 fL (8.8-12.5); Monocytes # (Auto) 0.76 K/mcL (0.10-0.90); Monocytes % (Auto) 9.2 % (1.0-12.0); Neutrophils % (Auto) 71.3 % (38.0-78.0); Platelet Count 288 K/mcL (140-440); RBC 3.13 M/mcL (3.59-5.38); Red Cell Distribution Width 17.1 % (11.5-14.5); WBC 8.3 K/mcL (4.5-11.0)
[2023-10-21 07:01] LABS: ALT/SGPT < 5 U/L (<40); AST/SGOT 10 U/L (<32); Albumin 2.8 gm/dL (3.2-5.2); Albumin/Globulin Ratio 1.2 (1.0-2.3); Alkaline Phosphatase 97 U/L (39-117); Bilirubin,Direct < 0.2 mg/dL (0-0.3); Bilirubin,Total < 0.2 mg/dL (0.1-1.0); Blood Urea Nitrogen 6 mg/dL (6-20); Calcium 8.1 mg/dL (8.6-10.4); Carbon Dioxide 21 mmol/L (22-30); Chloride 107 mmol/L (96-108); Globulin 2.3 gm/dL (2.2-3.7); Glomerular Filtration Rate 127; Glucose 85 mg/dL (70-105); Lactate Dehydrogenase 97 U/L (135-225); Phosphorous 3.2 mg/dL (2.5-4.5); Potassium 3.2 mmol/L (3.3-5.1); Sodium 138 mmol/L (133-145); Triglycerides 275 mg/dL (<150); Uric Acid 1.3 mg/dL (2.5-8.0)
[2023-10-21] MEDS: POTASSIUM CHLORIDE 40 MEQ in DEXTROSE 5% IN WATER 500 ML IV SCH (13:31)
[2023-10-21] MEDS: KETOROLAC 30 MG/ML VIAL IV SCH (13:32)
[2023-10-22 06:18] LABS: Basophils # (Auto) 0.04 K/mcL (0.00-0.30); Basophils % (Auto) 0.6 % (0.0-2.0); Eosinophils # (Auto) 0.09 K/mcL (0.00-0.70); Eosinophils % (Auto) 1.4 % (0.0-7.0); Hematocrit 24.9 % (34.1-44.9); Hemoglobin 7.2 g/dL (11.2-15.7); Lymphocytes # (Auto) 1.78 K/mcL (1.50-4.80); Lymphocytes % (Auto) 26.9 % (15.5-49.0); Mean Cell Volume 82.2 fL (80.0-100.0); Mean Corpuscular HGB Conc 28.9 g/dL (31.0-36.0); Mean Platelet Volume 9.9 fL (8.8-12.5); Monocytes % (Auto) 7.6 % (1.0-12.0); Platelet Count 333 K/mcL (140-440); RBC 3.03 M/mcL (3.59-5.38); Red Cell Distribution Width 17.4 % (11.5-14.5); WBC 6.6 K/mcL (4.5-11.0)
[2023-10-22 06:23] LABS: Erythrocyte Sedimentation Rate 9 mm/hr (0-20)
[2023-10-22 06:32] LABS: ALT/SGPT 7 U/L (<40); AST/SGOT 29 U/L (<32); Albumin 2.6 gm/dL (3.2-5.2); Albumin/Globulin Ratio 1.1 (1.0-2.3); Alkaline Phosphatase 90 U/L (39-117); Bilirubin,Direct < 0.2 mg/dL (0-0.3); Bilirubin,Total < 0.2 mg/dL (0.1-1.0); Blood Urea Nitrogen 4 mg/dL (6-20); Calcium 7.9 mg/dL (8.6-10.4); Carbon Dioxide 16 mmol/L (22-30); Chloride 111 mmol/L (96-108); Globulin 2.4 gm/dL (2.2-3.7); Glomerular Filtration Rate 118; Glucose 85 mg/dL (70-105); Lactate Dehydrogenase 261 U/L (135-225); Potassium 3.7 mmol/L (3.3-5.1); Sodium 139 mmol/L (133-145); Triglycerides 251 mg/dL (<150); Uric Acid 1.3 mg/dL (2.5-8.0)
[2023-10-22] MEDS: VANCOMYCIN 750 MG in 0.9 % SODIUM CHLORIDE 250 ML IV SCH (11:05)
[2023-10-22] MEDS: 0.9 % SODIUM CHLORIDE 250 ML IV SCH (16:33)
[2023-10-22] MEDS: KETOROLAC 30 MG/ML VIAL IV SCH (17:54)
[2023-10-24] MEDS: FUROSEMIDE 40 MG/4 ML VIAL IV SCH (16:15)
[2023-10-25 07:04] LABS: Basophils # (Auto) 0.08 K/mcL (0.00-0.30); Basophils % (Auto) 0.7 % (0.0-2.0); Eosinophils % (Auto) 4.2 % (0.0-7.0); Hematocrit 36.8 % (34.1-44.9); Hemoglobin 11.8 g/dL (11.2-15.7); Lymphocytes # (Auto) 2.23 K/mcL (1.50-4.80); Lymphocytes % (Auto) 18.8 % (15.5-49.0); Mean Corpuscular HGB Conc 32.1 g/dL (31.0-36.0); Mean Platelet Volume 9.2 fL (8.8-12.5); Monocytes # (Auto) 0.59 K/mcL (0.10-0.90); Neutrophils % (Auto) 70.9 % (38.0-78.0); Platelet Count 429 K/mcL (140-440); RBC 4.72 M/mcL (3.59-5.38); Red Cell Distribution Width 18.1 % (11.5-14.5); WBC 11.9 K/mcL (4.5-11.0)
[2023-10-25 07:44] LABS: ALT/SGPT < 5 U/L (<40); AST/SGOT 21 U/L (<32); Albumin 2.9 gm/dL (3.2-5.2); Albumin/Globulin Ratio 1.2 (1.0-2.3); Alkaline Phosphatase 109 U/L (39-117); Bilirubin,Direct < 0.2 mg/dL (0-0.3); Bilirubin,Total < 0.2 mg/dL (0.1-1.0); Blood Urea Nitrogen 3 mg/dL (6-20); Calcium 7.9 mg/dL (8.6-10.4); Carbon Dioxide 23 mmol/L (22-30); Chloride 108 mmol/L (96-108); Globulin 2.5 gm/dL (2.2-3.7); Glomerular Filtration Rate 118; Glucose 77 mg/dL (70-105); Lactate Dehydrogenase 168 U/L (135-225); Potassium 2.1 mmol/L (3.3-5.1); Sodium 144 mmol/L (133-145); Triglycerides 195 mg/dL (<150)
[2023-10-25] MEDS ORDERED: POTASSIUM CHLORIDE 20 MEQ in DEXTROSE 5% IN WATER 250 ML IV SCH (08:00)
[2023-10-25] MEDS: POTASSIUM CHLORIDE 20 MEQ in DEXTROSE 5% IN WATER 250 ML IV SCH (08:45)
[2023-10-25] MEDS ORDERED: SODIUM CHLORIDE IRRIG SOLUTION 250 ML BOTTLE IRR ONE (12:44)
[2023-10-25] MEDS ORDERED: TPN PER PHARMACY IV SCH (13:06)
[2023-10-25] MEDS: morphine 2 MG/ML VIAL IV PRN (15:40)
[2023-10-25] MEDS: MAGNESIUM SULFATE 4 GM/100 ML BAG IV ONE (15:50)
[2023-10-25] MEDS: CALCIUM GLUCONATE IV SCH (16:11)
[2023-10-25] MEDS: FAT EMULSION 20% 250 ML in PREMIX 1 BAG IV SCH (16:11)
[2023-10-25] MEDS: MAGNESIUM SULFATE IV SCH (16:11)
[2023-10-25] MEDS: [UNRECOGNIZED DRUG - OTHER] IV SCH (16:11)
[2023-10-25] MEDS: SODIUM CHLORIDE IV SCH (16:11)
[2023-10-25] MEDS: INSULIN LISPRO 1 UNIT/0.01 ML UNIT SQ SCH (17:42)
[2023-10-25] MEDS: POTASSIUM CHLORIDE 20 MEQ in DEXTROSE 5% IN WATER 250 ML IV STA (20:35)
[2023-10-25] MEDS: methylPREDNISolone SOD SUCC 125 MG/2 ML VIAL IV SCH (22:03)
[2023-10-26] MEDS: CARISOPRODOL 350 MG TABLET PO PRN (00:04)
[2023-10-26 06:40] LABS: Basophils # (Auto) 0.01 K/mcL (0.00-0.30); Basophils % (Auto) 0.1 % (0.0-2.0); Eosinophils # (Auto) 0.01 K/mcL (0.00-0.70); Eosinophils % (Auto) 0.1 % (0.0-7.0); Hematocrit 36.9 % (34.1-44.9); Hemoglobin 11.7 g/dL (11.2-15.7); Lymphocytes # (Auto) 0.92 K/mcL (1.50-4.80); Mean Cell Volume 77.8 fL (80.0-100.0); Mean Corpuscular HGB Conc 31.7 g/dL (31.0-36.0); Mean Platelet Volume 8.7 fL (8.8-12.5); Monocytes # (Auto) 0.07 K/mcL (0.10-0.90); Monocytes % (Auto) 0.6 % (1.0-12.0); Neutrophils % (Auto) 90.9 % (38.0-78.0); Platelet Count 465 K/mcL (140-440); RBC 4.74 M/mcL (3.59-5.38); Red Cell Distribution Width 18.5 % (11.5-14.5); WBC 11.6 K/mcL (4.5-11.0)
[2023-10-26 07:24] LABS: ALT/SGPT < 5 U/L (<40); AST/SGOT 15 U/L (<32); Albumin 3.2 gm/dL (3.2-5.2); Albumin/Globulin Ratio 1.2 (1.0-2.3); Alkaline Phosphatase 112 U/L (39-117); Bilirubin,Direct < 0.2 mg/dL (0-0.3); Bilirubin,Total < 0.2 mg/dL (0.1-1.0); Blood Urea Nitrogen 7 mg/dL (6-20); Calcium 8.8 mg/dL (8.6-10.4); Carbon Dioxide 26 mmol/L (22-30); Chloride 106 mmol/L (96-108); Globulin 2.7 gm/dL (2.2-3.7); Glomerular Filtration Rate 111; Glucose 134 mg/dL (70-105); Lactate Dehydrogenase 150 U/L (135-225); Phosphorous 3.1 mg/dL (2.5-4.5); Potassium 2.6 mmol/L (3.3-5.1); Sodium 142 mmol/L (133-145); Triglycerides 100 mg/dL (<150); Uric Acid 1.9 mg/dL (2.5-8.0)
[2023-10-26 07:51] LABS: Erythrocyte Sedimentation Rate 25 mm/hr (0-20)
[2023-10-26] MEDS: POTASSIUM CHLORIDE 40 MEQ in DEXTROSE 5% IN WATER 250 ML IV SCH (08:45)
[2023-10-26] MEDS: VANCOMYCIN 750 MG in 0.9 % SODIUM CHLORIDE 250 ML IV SCH (11:22)
[2023-10-26] MEDS: [UNRECOGNIZED DRUG - OTHER] IV SCH (12:52)
[2023-10-26] MEDS: SODIUM CHLORIDE IV SCH (12:52)
[2023-10-26] MEDS: MAGNESIUM SULFATE IV SCH (12:52)
[2023-10-26] MEDS: CALCIUM GLUCONATE IV SCH (12:52)
[2023-10-26] MEDS: oxyCODONE IR 5 MG TABLET PO PRN (16:07)
[2023-10-27 06:17] LABS: Basophils # (Auto) 0.01 K/mcL (0.00-0.30); Basophils % (Auto) 0.1 % (0.0-2.0); Eosinophils # (Auto) 0 K/mcL (0.00-0.70); Eosinophils % (Auto) 0 % (0.0-7.0); Hematocrit 36.3 % (34.1-44.9); Hemoglobin 11.1 g/dL (11.2-15.7); Lymphocytes # (Auto) 1.13 K/mcL (1.50-4.80); Lymphocytes % (Auto) 6.9 % (15.5-49.0); Mean Corpuscular HGB Conc 30.6 g/dL (31.0-36.0); Monocytes # (Auto) 0.45 K/mcL (0.10-0.90); Monocytes % (Auto) 2.8 % (1.0-12.0); Neutrophils % (Auto) 89.7 % (38.0-78.0); Platelet Count 529 K/mcL (140-440); RBC 4.54 M/mcL (3.59-5.38); Red Cell Distribution Width 18.6 % (11.5-14.5); WBC 16.3 K/mcL (4.5-11.0)
[2023-10-27 06:39] LABS: Erythrocyte Sedimentation Rate 16 mm/hr (0-20)
[2023-10-27 06:49] LABS: ALT/SGPT 7 U/L (<40); AST/SGOT 27 U/L (<32); Albumin 3.2 gm/dL (3.2-5.2); Albumin/Globulin Ratio 1.2 (1.0-2.3); Alkaline Phosphatase 102 U/L (39-117); Bilirubin,Direct < 0.2 mg/dL (0-0.3); Bilirubin,Total < 0.2 mg/dL (0.1-1.0); Blood Urea Nitrogen 11 mg/dL (6-20); Calcium 9.2 mg/dL (8.6-10.4); Carbon Dioxide 22 mmol/L (22-30); Chloride 108 mmol/L (96-108); Globulin 2.6 gm/dL (2.2-3.7); Glomerular Filtration Rate 111; Glucose 127 mg/dL (70-105); Lactate Dehydrogenase 161 U/L (135-225); Phosphorous 2.5 mg/dL (2.5-4.5); Potassium 3.5 mmol/L (3.3-5.1); Sodium 140 mmol/L (133-145); Triglycerides 171 mg/dL (<150); Uric Acid 1.4 mg/dL (2.5-8.0)
[2023-10-27] MEDS: [UNRECOGNIZED DRUG - OTHER] IV SCH (10:21)
[2023-10-27] MEDS: MAGNESIUM SULFATE IV SCH (10:21)
[2023-10-27] MEDS: SODIUM CHLORIDE IV SCH (10:21)
[2023-10-27] MEDS: CALCIUM GLUCONATE IV SCH (10:21)
== END 2023-10-27 15:37 | disposition home health service (06) | DRG 314 ==
LOC: MEDSUR 12:12
PROVIDERS: ADMIT Family Medicine Adult Medicine; ATTEND Family Medicine Adult Medicine

== ENCOUNTER 2023-11-06 19:53 | Inpatient (IN) ==
[2023-11-06] MEDS ORDERED: IOPAMIDOL 100 ML BOTTLE IV ONE (19:54)
[2023-11-06] MEDS: HYDROmorphone 0.5 MG/0.5 ML SYRINGE IV PRN (21:10)
[2023-11-06] MEDS: ONDANSETRON 4 MG/2 ML VIAL IV ONE (21:10)
[2023-11-06] MEDS: 0.9 % SODIUM CHLORIDE 1,000 ML IV ONE (21:10)
[2023-11-06 21:16] LABS: Basophils # (Auto) 0.05 K/mcL (0.00-0.30); Basophils % (Auto) 0.5 % (0.0-2.0); Eosinophils # (Auto) 0.09 K/mcL (0.00-0.70); Eosinophils % (Auto) 0.8 % (0.0-7.0); Hematocrit 43.5 % (34.1-44.9); Hemoglobin 13.2 g/dL (11.2-15.7); Lymphocytes # (Auto) 1.93 K/mcL (1.50-4.80); Lymphocytes % (Auto) 18.1 % (15.5-49.0); Mean Cell Volume 80.4 fL (80.0-100.0); Mean Corpuscular HGB Conc 30.3 g/dL (31.0-36.0); Mean Platelet Volume 8.6 fL (8.8-12.5); Monocytes # (Auto) 0.44 K/mcL (0.10-0.90); Monocytes % (Auto) 4.1 % (1.0-12.0); Neutrophils % (Auto) 76.1 % (38.0-78.0); Platelet Count 437 K/mcL (140-440); RBC 5.41 M/mcL (3.59-5.38); Red Cell Distribution Width 19.8 % (11.5-14.5); WBC 10.7 K/mcL (4.5-11.0)
[2023-11-06 21:50] LABS: ALT/SGPT 22 U/L (<40); AST/SGOT 42 U/L (<32); Albumin 4.2 gm/dL (3.2-5.2); Albumin/Globulin Ratio 1.2 (1.0-2.3); Alkaline Phosphatase 160 U/L (39-117); Bilirubin,Total 0.2 mg/dL (0.1-1.0); Blood Urea Nitrogen 19 mg/dL (6-20); Calcium 9.5 mg/dL (8.6-10.4); Carbon Dioxide 24 mmol/L (22-30); Chloride 97 mmol/L (96-108); Globulin 3.5 gm/dL (2.2-3.7); Glomerular Filtration Rate 118; Glucose 83 mg/dL (70-105); Potassium 4.3 mmol/L (3.3-5.1); Sodium 138 mmol/L (133-145)
[2023-11-06] MEDS: HALOPERIDOL LACTATE 5 MG/ML VIAL IV ONE (22:10)
[2023-11-07] MEDS: LORazepam 1 MG TABLET ONE (00:51)
[2023-11-07] MEDS: LORazepam 1 MG TABLET PO SCH ×2 (00:51→07:56)
[2023-11-07] MEDS: ONDANSETRON 4 MG/2 ML VIAL IV PRN (00:51)
[2023-11-07] MEDS: CARISOPRODOL 350 MG TABLET PO PRN (00:52)
[2023-11-07] MEDS: METOCLOPRAMIDE 10 MG/2 ML VIAL IV SCH (01:40)
[2023-11-07] MEDS: LORazepam (PP) 1 MG TABLET (#4) PO SCH (01:46)
[2023-11-07] MEDS: SUCRALFATE 1 GM/10 ML ORAL.SUSP PO SCH (01:51)
[2023-11-07] MEDS: morphine 2 MG/ML VIAL IV PRN (01:51)
[2023-11-07] MEDS: 0.9 % SODIUM CHLORIDE 1,000 ML IV SCH (04:58)
[2023-11-07 05:51] LABS: Basophils # (Auto) 0.06 K/mcL (0.00-0.30); Basophils % (Auto) 0.5 % (0.0-2.0); Eosinophils # (Auto) 0.03 K/mcL (0.00-0.70); Eosinophils % (Auto) 0.3 % (0.0-7.0); Hematocrit 39.4 % (34.1-44.9); Hemoglobin 12.2 g/dL (11.2-15.7); Lymphocytes # (Auto) 2.71 K/mcL (1.50-4.80); Lymphocytes % (Auto) 23.9 % (15.5-49.0); Mean Cell Volume 79.3 fL (80.0-100.0); Mean Platelet Volume 8.7 fL (8.8-12.5); Monocytes # (Auto) 0.53 K/mcL (0.10-0.90); Monocytes % (Auto) 4.7 % (1.0-12.0); Neutrophils % (Auto) 70.2 % (38.0-78.0); Platelet Count 419 K/mcL (140-440); RBC 4.97 M/mcL (3.59-5.38); Red Cell Distribution Width 19.6 % (11.5-14.5); WBC 11.3 K/mcL (4.5-11.0)
[2023-11-07 06:14] LABS: ALT/SGPT 29 U/L (<40); AST/SGOT 34 U/L (<32); Albumin 4.2 gm/dL (3.2-5.2); Albumin/Globulin Ratio 1.5 (1.0-2.3); Alkaline Phosphatase 151 U/L (39-117); Bilirubin,Direct < 0.2 mg/dL (0-0.3); Bilirubin,Total 0.3 mg/dL (0.1-1.0); Blood Urea Nitrogen 18 mg/dL (6-20); Calcium 9.5 mg/dL (8.6-10.4); Carbon Dioxide 22 mmol/L (22-30); Chloride 98 mmol/L (96-108); Globulin 2.8 gm/dL (2.2-3.7); Glomerular Filtration Rate 111; Glucose 77 mg/dL (70-105); Lactate Dehydrogenase 180 U/L (135-225); Phosphorous 4.2 mg/dL (2.5-4.5); Potassium 4.3 mmol/L (3.3-5.1); Sodium 139 mmol/L (133-145); Triglycerides 132 mg/dL (<150); Uric Acid 3.8 mg/dL (2.5-8.0)
[2023-11-07] MEDS: PANTOPRAZOLE 40 MG VIAL IV SCH (07:15)
[2023-11-07] MEDS: clonazePAM 1 MG TABLET PO SCH (08:51)
[2023-11-07] MEDS: BUDESONIDE 3 MG CAP.XL.24H PO SCH (08:51)
[2023-11-07] MEDS: POLYETHYLENE GLYCOL 3350 17 GM PACKET PO SCH (08:51)
[2023-11-07] MEDS: GABAPENTIN 300 MG CAPSULE PO SCH (08:51)
[2023-11-07] MEDS: NICOTINE 21 MG PATCH TOPICAL SCH (09:55)
[2023-11-07] MEDS ORDERED: PHENobarb/HYOSCY/ATROPINE/SCOP 1 DOSE BOTTLE PO PRN (15:20)
[2023-11-07] MEDS: NYSTATIN 500,000 UNITS/5 ML ORAL.SUSP SSW SCH (16:08)
[2023-11-07] MEDS: DULoxetine 30 MG CAPSULE PO SCH (20:31)
[2023-11-08] MEDS: diphenhydrAMINE 25 MG CAPSULE PO PRN (04:27)
[2023-11-08 06:13] LABS: Basophils # (Auto) 0.05 K/mcL (0.00-0.30); Basophils % (Auto) 0.4 % (0.0-2.0); Eosinophils # (Auto) 0.18 K/mcL (0.00-0.70); Eosinophils % (Auto) 1.5 % (0.0-7.0); Hematocrit 35.3 % (34.1-44.9); Hemoglobin 10.8 g/dL (11.2-15.7); Lymphocytes # (Auto) 2.31 K/mcL (1.50-4.80); Lymphocytes % (Auto) 19.7 % (15.5-49.0); Mean Corpuscular HGB Conc 30.6 g/dL (31.0-36.0); Mean Platelet Volume 8.8 fL (8.8-12.5); Monocytes # (Auto) 0.58 K/mcL (0.10-0.90); Monocytes % (Auto) 4.9 % (1.0-12.0); Neutrophils % (Auto) 73.1 % (38.0-78.0); Platelet Count 348 K/mcL (140-440); RBC 4.36 M/mcL (3.59-5.38); Red Cell Distribution Width 19.2 % (11.5-14.5); WBC 11.7 K/mcL (4.5-11.0)
[2023-11-08 06:37] LABS: ALT/SGPT 18 U/L (<40); AST/SGOT 35 U/L (<32); Albumin 3.5 gm/dL (3.2-5.2); Albumin/Globulin Ratio 1.3 (1.0-2.3); Alkaline Phosphatase 120 U/L (39-117); Bilirubin,Direct < 0.2 mg/dL (0-0.3); Bilirubin,Total 0.3 mg/dL (0.1-1.0); Blood Urea Nitrogen 16 mg/dL (6-20); Calcium 8.6 mg/dL (8.6-10.4); Carbon Dioxide 21 mmol/L (22-30); Chloride 103 mmol/L (96-108); Globulin 2.6 gm/dL (2.2-3.7); Glomerular Filtration Rate 118; Glucose 68 mg/dL (70-105); Lactate Dehydrogenase 155 U/L (135-225); Phosphorous 3.2 mg/dL (2.5-4.5); Potassium 3.5 mmol/L (3.3-5.1); Sodium 138 mmol/L (133-145); Triglycerides 159 mg/dL (<150); Uric Acid 3.8 mg/dL (2.5-8.0)
[2023-11-08] MEDS ORDERED: TPN PER PHARMACY IV SCH (11:00)
[2023-11-08] MEDS: [UNRECOGNIZED DRUG - OTHER] IV SCH (11:32)
[2023-11-08] MEDS: MAGNESIUM SULFATE IV SCH (11:32)
[2023-11-08] MEDS: SODIUM CHLORIDE IV SCH (11:32)
[2023-11-08] MEDS: CALCIUM GLUCONATE IV SCH (11:32)
[2023-11-08] MEDS: ERYTHROMYCIN BASE 250 MG TABLET PO SCH (11:33)
[2023-11-08] MEDS ORDERED: DEXTROSE 31 GM ORAL.SUSP PO PRN (13:09)
[2023-11-08] MEDS ORDERED: DEXTROSE 50% 50 ML VIAL IV PRN (13:09)
[2023-11-08] MEDS ORDERED: INSULIN LISPRO 1 UNIT/0.01 ML UNIT SQ SCH (17:00)
[2023-11-08] MEDS: INSULIN LISPRO 1 UNIT/0.01 ML UNIT SQ SCH (17:17)
[2023-11-08] MEDS: FAT EMULSION 20% 250 ML IV SCH (17:50)
[2023-11-08] MEDS: METOCLOPRAMIDE 10 MG/2 ML VIAL IV PRN (19:51)
[2023-11-09 06:57] LABS: ALT/SGPT 18 U/L (<40); AST/SGOT 24 U/L (<32); Albumin 3.7 gm/dL (3.2-5.2); Albumin/Globulin Ratio 1.5 (1.0-2.3); Alkaline Phosphatase 111 U/L (39-117); Bilirubin,Direct < 0.2 mg/dL (0-0.3); Bilirubin,Total < 0.2 mg/dL (0.1-1.0); Blood Urea Nitrogen 11 mg/dL (6-20); Calcium 8.5 mg/dL (8.6-10.4); Carbon Dioxide 23 mmol/L (22-30); Chloride 100 mmol/L (96-108); Globulin 2.4 gm/dL (2.2-3.7); Glomerular Filtration Rate 118; Glucose 136 mg/dL (70-105); Lactate Dehydrogenase 160 U/L (135-225); Phosphorous 2.4 mg/dL (2.5-4.5); Potassium 2.8 mmol/L (3.3-5.1); Sodium 135 mmol/L (133-145); Triglycerides 234 mg/dL (<150)
[2023-11-09] MEDS: POTASSIUM CHLORIDE 40 MEQ in DEXTROSE 5% IN WATER 500 ML IV ONE (09:21)
[2023-11-09] MEDS: SODIUM CHLORIDE IV SCH (11:02)
[2023-11-09] MEDS: [UNRECOGNIZED DRUG - OTHER] IV SCH (11:02)
[2023-11-09] MEDS: MAGNESIUM SULFATE IV SCH (11:02)
[2023-11-09] MEDS: CALCIUM GLUCONATE IV SCH (11:02)
[2023-11-10 07:04] LABS: ALT/SGPT 22 U/L (<40); AST/SGOT 25 U/L (<32); Albumin 3.6 gm/dL (3.2-5.2); Albumin/Globulin Ratio 1.7 (1.0-2.3); Alkaline Phosphatase 102 U/L (39-117); Bilirubin,Direct < 0.2 mg/dL (0-0.3); Bilirubin,Total 0.2 mg/dL (0.1-1.0); Blood Urea Nitrogen 11 mg/dL (6-20); Calcium 8.6 mg/dL (8.6-10.4); Carbon Dioxide 21 mmol/L (22-30); Chloride 106 mmol/L (96-108); Globulin 2.1 gm/dL (2.2-3.7); Glomerular Filtration Rate 126; Glucose 103 mg/dL (70-105); Lactate Dehydrogenase 166 U/L (135-225); Phosphorous 3.5 mg/dL (2.5-4.5); Potassium 3.5 mmol/L (3.3-5.1); Sodium 138 mmol/L (133-145); Triglycerides 102 mg/dL (<150); Uric Acid 1.1 mg/dL (2.5-8.0)
[2023-11-10] MEDS ORDERED: FAT EMULSION 20% 250 ML IV SCH (18:00)
== END 2023-11-10 17:20 | disposition home or self-care (01) | DRG 391 ==
LOC: ED 19:53 → INTOOBSV 11-07 00:08 → MEDSUR 11-07 00:08
PROVIDERS: ADMIT Family Medicine Adult Medicine; ATTEND Family Medicine Adult Medicine

== ENCOUNTER 2024-01-05 12:45 | Inpatient (IN) ==
[2024-01-05] MEDS ORDERED: IOPAMIDOL 100 ML BOTTLE IV ONE (12:46)
[2024-01-05] MEDS: PANTOPRAZOLE 40 MG VIAL IV ONE (13:27)
[2024-01-05] MEDS: diphenhydrAMINE 50 MG/ML VIAL IV ONE (13:32)
[2024-01-05] MEDS: HALOPERIDOL LACTATE 5 MG/ML VIAL IV ONE (13:32)
[2024-01-05] MEDS: fentaNYL 100 MCG/2 ML VIAL IV ONE (13:34)
[2024-01-05] MEDS: ONDANSETRON 4 MG/2 ML VIAL IV ONE (13:35)
[2024-01-05] MEDS: HYDROmorphone 1 MG/ML SYRINGE IV ONE (16:18)
[2024-01-05] MEDS: ACETAMINOPHEN 1,000 MG/100 ML BAG IV SCH ×2 (17:26→19:12)
[2024-01-05] MEDS ORDERED: TPN PER PHARMACY IV SCH (17:30)
[2024-01-05] MEDS: SUCRALFATE 1 GM/10 ML ORAL.SUSP PO SCH (19:11)
[2024-01-05] MEDS: HYDROmorphone 0.5 MG/0.5 ML SYRINGE IV PRN ×2 (19:12→22:14)
[2024-01-05] MEDS: GABAPENTIN 300 MG CAPSULE PO SCH (22:13)
[2024-01-05] MEDS: POLYETHYLENE GLYCOL 3350 17 GM PACKET PO SCH (22:13)
[2024-01-05] MEDS: NYSTATIN 500,000 UNITS/5 ML ORAL.SUSP SSW SCH (22:13)
[2024-01-05] MEDS: ERYTHROMYCIN BASE 250 MG TABLET PO SCH (22:21)
[2024-01-05] MEDS: LIDOCAINE 4% TOP PATCH TOPICAL ONE (23:39)
[2024-01-05] MEDS: NICOTINE 21 MG PATCH TOPICAL SCH (23:54)
[2024-01-06] MEDS: morphine 4 MG/ML VIAL IV PRN (00:28)
[2024-01-06] MEDS: LORazepam 2 MG/ML VIAL IV PRN (00:28)
[2024-01-06] MEDS: NICOTINE 21 MG PATCH ONE (01:14)
[2024-01-06] MEDS ORDERED: VANCOMYCIN PER PHARMACY IV SCH (07:01)
[2024-01-06 07:15] LABS: Basophils # (Auto) 0.01 K/mcL (0.00-0.30); Basophils % (Auto) 0.1 % (0.0-2.0); Eosinophils # (Auto) 0.02 K/mcL (0.00-0.70); Eosinophils % (Auto) 0.2 % (0.0-7.0); Hematocrit 36.2 % (34.1-44.9); Hemoglobin 11.3 g/dL (11.2-15.7); Lymphocytes # (Auto) 1.01 K/mcL (1.50-4.80); Lymphocytes % (Auto) 9.4 % (15.5-49.0); Mean Cell Volume 76.7 fL (80.0-100.0); Mean Corpuscular HGB Conc 31.2 g/dL (31.0-36.0); Mean Platelet Volume 10.1 fL (8.8-12.5); Monocytes # (Auto) 0.63 K/mcL (0.10-0.90); Monocytes % (Auto) 5.8 % (1.0-12.0); Neutrophils % (Auto) 84.1 % (38.0-78.0); Platelet Count 275 K/mcL (140-440); RBC 4.72 M/mcL (3.59-5.38); WBC 10.8 K/mcL (4.5-11.0)
[2024-01-06] MEDS: MEROPENEM 1 GM in 0.9 % SODIUM CHLORIDE 50 ML IV SCH (07:22)
[2024-01-06] MEDS: DEXTROSE 5%-NS 1,000 ML IV SCH (07:22)
[2024-01-06] MEDS: PANTOPRAZOLE 40 MG VIAL IV SCH (07:28)
[2024-01-06 07:44] LABS: ALT/SGPT 24 U/L (<40); AST/SGOT 17 U/L (<32); Albumin 3.6 gm/dL (3.2-5.2); Albumin/Globulin Ratio 1.3 (1.0-2.3); Alkaline Phosphatase 140 U/L (39-117); Bilirubin,Direct < 0.2 mg/dL (0-0.3); Bilirubin,Total 0.2 mg/dL (0.1-1.0); Blood Urea Nitrogen 16 mg/dL (6-20); Calcium 9.2 mg/dL (8.6-10.4); Carbon Dioxide 23 mmol/L (22-30); Chloride 96 mmol/L (96-108); Globulin 2.8 gm/dL (2.2-3.7); Glomerular Filtration Rate 117; Glucose 85 mg/dL (70-105); Lactate Dehydrogenase 164 U/L (135-225); Potassium 4.6 mmol/L (3.3-5.1); Sodium 132 mmol/L (133-145); Triglycerides 154 mg/dL (<150); Uric Acid 1.2 mg/dL (2.5-8.0)
[2024-01-06] MEDS: DEXTROSE 5% IV SCH (08:56)
[2024-01-06] MEDS: WATER IV SCH (08:56)
[2024-01-06] MEDS: VANCOMYCIN IV SCH (08:56)
[2024-01-06] MEDS: LIDOCAINE 4% TOP PATCH TOPICAL SCH (09:42)
[2024-01-06] MEDS: DULoxetine 30 MG CAPSULE PO SCH (09:45)
[2024-01-06] MEDS: BUDESONIDE 3 MG CAP.XL.24H PO SCH (09:46)
[2024-01-06 11:05] LABS: Appearance,Urine Clear (Clear); Bilirubin,Urine Negative (Negative); Color,Urine Yellow; Glucose,Urine (UA) Negative (Negative); Ketones,Urine Negative (Negative); Leukocyte Esterase,Urine Negative /uL (Negative); Nitrate,Urine Negative (Negative); Protein,Urine Trace mg/dL (Negative); Urine Blood Trace-intact ery/mcL (Negative); Urine Hyaline Cast 1 /lph (0-2); Urine RBC 1 /hpf (0-3); Urine Squamous Epithelial Cell 0 /hpf (0-4); Urine WBC 1 /hpf (0-4); Urobilinogen,Urine Normal
[2024-01-06] MEDS: SODIUM CHLORIDE 154 MEQ in WATER FOR INJECTION,STERILE 961.5 ML IV SCH (15:15)
[2024-01-07 06:13] LABS: Basophils # (Auto) 0.01 K/mcL (0.00-0.30); Basophils % (Auto) 0.1 % (0.0-2.0); Eosinophils # (Auto) 0.01 K/mcL (0.00-0.70); Eosinophils % (Auto) 0.1 % (0.0-7.0); Hemoglobin 8.9 g/dL (11.2-15.7); Lymphocytes # (Auto) 0.72 K/mcL (1.50-4.80); Lymphocytes % (Auto) 7.9 % (15.5-49.0); Mean Cell Volume 77.7 fL (80.0-100.0); Mean Corpuscular HGB Conc 30.7 g/dL (31.0-36.0); Mean Platelet Volume 9.8 fL (8.8-12.5); Monocytes # (Auto) 0.66 K/mcL (0.10-0.90); Monocytes % (Auto) 7.3 % (1.0-12.0); Neutrophils % (Auto) 84.3 % (38.0-78.0); Platelet Count 182 K/mcL (140-440); RBC 3.73 M/mcL (3.59-5.38); WBC 9.1 K/mcL (4.5-11.0)
[2024-01-07 07:20] LABS: ALT/SGPT 15 U/L (<40); AST/SGOT 12 U/L (<32); Albumin 2.7 gm/dL (3.2-5.2); Albumin/Globulin Ratio 1.1 (1.0-2.3); Alkaline Phosphatase 123 U/L (39-117); Bilirubin,Direct < 0.2 mg/dL (0-0.3); Bilirubin,Total 0.2 mg/dL (0.1-1.0); Blood Urea Nitrogen 7 mg/dL (6-20); Calcium 8.1 mg/dL (8.6-10.4); Carbon Dioxide 20 mmol/L (22-30); Chloride 104 mmol/L (96-108); Globulin 2.4 gm/dL (2.2-3.7); Glomerular Filtration Rate 139; Glucose 122 mg/dL (70-105); Lactate Dehydrogenase 143 U/L (135-225); Phosphorous 2.9 mg/dL (2.5-4.5); Potassium 3.4 mmol/L (3.3-5.1); Sodium 135 mmol/L (133-145); Triglycerides 129 mg/dL (<150); Uric Acid 1.4 mg/dL (2.5-8.0)
[2024-01-07] MEDS: ONDANSETRON 4 MG/2 ML VIAL IV PRN (08:19)
[2024-01-08 06:21] LABS: Basophils # (Auto) 0.01 K/mcL (0.00-0.30); Basophils % (Auto) 0.1 % (0.0-2.0); Eosinophils # (Auto) 0.01 K/mcL (0.00-0.70); Eosinophils % (Auto) 0.1 % (0.0-7.0); Hematocrit 27.6 % (34.1-44.9); Hemoglobin 8.5 g/dL (11.2-15.7); Lymphocytes # (Auto) 0.89 K/mcL (1.50-4.80); Lymphocytes % (Auto) 7.4 % (15.5-49.0); Mean Cell Volume 77.5 fL (80.0-100.0); Mean Corpuscular HGB Conc 30.8 g/dL (31.0-36.0); Mean Platelet Volume 9.5 fL (8.8-12.5); Monocytes # (Auto) 0.52 K/mcL (0.10-0.90); Monocytes % (Auto) 4.3 % (1.0-12.0); Neutrophils % (Auto) 87.9 % (38.0-78.0); Platelet Count 245 K/mcL (140-440); RBC 3.56 M/mcL (3.59-5.38); Red Cell Distribution Width 17.1 % (11.5-14.5); WBC 12.1 K/mcL (4.5-11.0)
[2024-01-08 06:49] LABS: ALT/SGPT 13 U/L (<40); AST/SGOT 14 U/L (<32); Albumin 2.6 gm/dL (3.2-5.2); Albumin/Globulin Ratio 1.1 (1.0-2.3); Alkaline Phosphatase 197 U/L (39-117); Bilirubin,Direct < 0.2 mg/dL (0-0.3); Bilirubin,Total 0.2 mg/dL (0.1-1.0); Blood Urea Nitrogen 6 mg/dL (6-20); Calcium 8.2 mg/dL (8.6-10.4); Carbon Dioxide 20 mmol/L (22-30); Chloride 108 mmol/L (96-108); Globulin 2.4 gm/dL (2.2-3.7); Glomerular Filtration Rate 139; Glucose 110 mg/dL (70-105); Lactate Dehydrogenase 144 U/L (135-225); Phosphorous 2.9 mg/dL (2.5-4.5); Potassium 2.8 mmol/L (3.3-5.1); Sodium 140 mmol/L (133-145); Triglycerides 161 mg/dL (<150); Uric Acid 1.6 mg/dL (2.5-8.0)
[2024-01-08] MEDS ORDERED: POTASSIUM CHLORIDE 40 MEQ in DEXTROSE 5% IN WATER 500 ML IV ONE ×2 (09:00→14:00)
[2024-01-08] MEDS: POTASSIUM CHLORIDE 10 MEQ/100 ML BAG IV SCH ×2 (09:17→14:14)
[2024-01-08] MEDS: WATER IV SCH (11:00)
[2024-01-08] MEDS: DEXTROSE 5% IV SCH (11:00)
[2024-01-08] MEDS: VANCOMYCIN IV SCH (11:00)
[2024-01-08] MEDS: MAG HYDROX/AL HYDROX/SIMETH 30 ML ORAL.SUSP PO PRN (11:27)
[2024-01-09 06:45] LABS: Basophils # (Auto) 0 K/mcL (0.00-0.30); Basophils % (Auto) 0 % (0.0-2.0); Eosinophils # (Auto) 0.01 K/mcL (0.00-0.70); Eosinophils % (Auto) 0.1 % (0.0-7.0); Hematocrit 25.2 % (34.1-44.9); Hemoglobin 7.6 g/dL (11.2-15.7); Lymphocytes # (Auto) 1.59 K/mcL (1.50-4.80); Lymphocytes % (Auto) 14.7 % (15.5-49.0); Mean Cell Volume 79.2 fL (80.0-100.0); Mean Corpuscular HGB Conc 30.2 g/dL (31.0-36.0); Mean Platelet Volume 9.6 fL (8.8-12.5); Monocytes # (Auto) 0.55 K/mcL (0.10-0.90); Monocytes % (Auto) 5.1 % (1.0-12.0); Neutrophils % (Auto) 79.8 % (38.0-78.0); Platelet Count 280 K/mcL (140-440); RBC 3.18 M/mcL (3.59-5.38); WBC 10.9 K/mcL (4.5-11.0)
[2024-01-09 06:47] LABS: ALT/SGPT 17 U/L (<40); AST/SGOT 23 U/L (<32); Albumin 2.4 gm/dL (3.2-5.2); Albumin/Globulin Ratio 1.1 (1.0-2.3); Alkaline Phosphatase 120 U/L (39-117); Bilirubin,Direct < 0.2 mg/dL (0-0.3); Bilirubin,Total < 0.2 mg/dL (0.1-1.0); Blood Urea Nitrogen 5 mg/dL (6-20); Calcium 7.9 mg/dL (8.6-10.4); Carbon Dioxide 20 mmol/L (22-30); Chloride 109 mmol/L (96-108); Globulin 2.1 gm/dL (2.2-3.7); Glomerular Filtration Rate 139; Glucose 102 mg/dL (70-105); Lactate Dehydrogenase 142 U/L (135-225); Phosphorous 2.1 mg/dL (2.5-4.5); Potassium 3.2 mmol/L (3.3-5.1); Sodium 137 mmol/L (133-145); Triglycerides 155 mg/dL (<150); Uric Acid 1.3 mg/dL (2.5-8.0)
[2024-01-09] MEDS ORDERED: 0.9 % SODIUM CHLORIDE 10 ML SYRINGE IV PRN (12:39)
[2024-01-09] MEDS: ceFAZolin 1 GM VIAL IV SCH (13:14)
[2024-01-09] MEDS: POTASSIUM PHOSPHATE 40 MEQ in DEXTROSE 5% IN WATER 500 ML IV SCH (13:51)
[2024-01-09] MEDS: POTASSIUM PHOSPHATE 40 MEQ in DEXTROSE 5% IN WATER 500 ML IV ONE (14:24)
[2024-01-09] MEDS: 0.9 % SODIUM CHLORIDE 10 ML SYRINGE IV SCH (21:05)
[2024-01-10 06:38] LABS: ALT/SGPT 43 U/L (<40); AST/SGOT 60 U/L (<32); Albumin 2.5 gm/dL (3.2-5.2); Albumin/Globulin Ratio 1.2 (1.0-2.3); Alkaline Phosphatase 125 U/L (39-117); Bilirubin,Direct < 0.2 mg/dL (0-0.3); Bilirubin,Total < 0.2 mg/dL (0.1-1.0); Blood Urea Nitrogen 3 mg/dL (6-20); Calcium 7.8 mg/dL (8.6-10.4); Carbon Dioxide 22 mmol/L (22-30); Chloride 106 mmol/L (96-108); Globulin 2.1 gm/dL (2.2-3.7); Glomerular Filtration Rate 139; Glucose 82 mg/dL (70-105); Lactate Dehydrogenase 149 U/L (135-225); Phosphorous 3.2 mg/dL (2.5-4.5); Potassium 3.3 mmol/L (3.3-5.1); Sodium 138 mmol/L (133-145); Triglycerides 180 mg/dL (<150); Uric Acid 1.4 mg/dL (2.5-8.0)
[2024-01-10] MEDS ORDERED: SODIUM CHLORIDE IRRIG SOLUTION 250 ML BOTTLE IRR ONE (09:17)
[2024-01-10] MEDS: DEXTROSE 5%-NS 1,000 ML IV SCH (17:53)
[2024-01-10] MEDS ORDERED: TPN PER PHARMACY IV SCH (18:15)
[2024-01-10] MEDS: CARISOPRODOL 350 MG TABLET PO PRN (19:19)
[2024-01-10] MEDS: POTASSIUM PHOSPHATE 66 MEQ/15 ML VIAL IV ONE ×2 (19:38→23:54)
[2024-01-10] MEDS: POTASSIUM PHOSPHATE 40 MEQ in DEXTROSE 5% IN WATER 500 ML IV SCH (19:47)
[2024-01-11] MEDS ORDERED: DEXTROSE 50% 50 ML SYRINGE IV PRN (07:54)
[2024-01-11 09:12] LABS: ALT/SGPT 34 U/L (<40); AST/SGOT 33 U/L (<32); Albumin 2.8 gm/dL (3.2-5.2); Albumin/Globulin Ratio 1.2 (1.0-2.3); Alkaline Phosphatase 135 U/L (39-117); Bilirubin,Direct < 0.2 mg/dL (0-0.3); Bilirubin,Total < 0.2 mg/dL (0.1-1.0); Blood Urea Nitrogen 3 mg/dL (6-20); Calcium 7.9 mg/dL (8.6-10.4); Carbon Dioxide 25 mmol/L (22-30); Chloride 102 mmol/L (96-108); Globulin 2.3 gm/dL (2.2-3.7); Glomerular Filtration Rate 139; Glucose 83 mg/dL (70-105); Lactate Dehydrogenase 153 U/L (135-225); Phosphorous 3.5 mg/dL (2.5-4.5); Potassium 3.5 mmol/L (3.3-5.1); Sodium 139 mmol/L (133-145); Triglycerides 188 mg/dL (<150); Uric Acid 1.1 mg/dL (2.5-8.0)
[2024-01-11] MEDS: INSULIN LISPRO 1 UNIT/0.01 ML UNIT SQ SCH (11:29)
[2024-01-11] MEDS: FAT EMULSION 20% 250 ML in PREMIX 1 BAG IV SCH (15:22)
[2024-01-11] MEDS: CALCIUM GLUCONATE IV SCH (15:23)
[2024-01-11] MEDS: [UNRECOGNIZED DRUG - OTHER] IV SCH (15:23)
[2024-01-11] MEDS: SODIUM CHLORIDE IV SCH (15:23)
[2024-01-11] MEDS: MAGNESIUM SULFATE IV SCH (15:23)
[2024-01-12 05:58] LABS: Basophils # (Auto) 0 K/mcL (0.00-0.30); Basophils % (Auto) 0 % (0.0-2.0); Eosinophils # (Auto) 0.04 K/mcL (0.00-0.70); Eosinophils % (Auto) 0.3 % (0.0-7.0); Hematocrit 26.6 % (34.1-44.9); Hemoglobin 8.2 g/dL (11.2-15.7); Lymphocytes # (Auto) 2.47 K/mcL (1.50-4.80); Lymphocytes % (Auto) 20.9 % (15.5-49.0); Mean Cell Volume 77.6 fL (80.0-100.0); Mean Corpuscular HGB Conc 30.8 g/dL (31.0-36.0); Mean Platelet Volume 9.2 fL (8.8-12.5); Monocytes # (Auto) 0.63 K/mcL (0.10-0.90); Monocytes % (Auto) 5.3 % (1.0-12.0); Platelet Count 349 K/mcL (140-440); RBC 3.43 M/mcL (3.59-5.38); Red Cell Distribution Width 16.3 % (11.5-14.5); WBC 11.8 K/mcL (4.5-11.0)
[2024-01-12 06:37] LABS: ALT/SGPT 26 U/L (<40); AST/SGOT 26 U/L (<32); Albumin 2.7 gm/dL (3.2-5.2); Albumin/Globulin Ratio 1.3 (1.0-2.3); Alkaline Phosphatase 122 U/L (39-117); Bilirubin,Direct < 0.2 mg/dL (0-0.3); Bilirubin,Total < 0.2 mg/dL (0.1-1.0); Blood Urea Nitrogen 4 mg/dL (6-20); Calcium 8.1 mg/dL (8.6-10.4); Carbon Dioxide 27 mmol/L (22-30); Chloride 104 mmol/L (96-108); Globulin 2.1 gm/dL (2.2-3.7); Glomerular Filtration Rate 159; Glucose 99 mg/dL (70-105); Lactate Dehydrogenase 158 U/L (135-225); Phosphorous 2.5 mg/dL (2.5-4.5); Sodium 140 mmol/L (133-145); Triglycerides 134 mg/dL (<150)
[2024-01-12] MEDS: POTASSIUM PHOSPHATE 40 MEQ in DEXTROSE 5% IN WATER 500 ML IV ONE ×2 (08:35→13:06)
[2024-01-12] MEDS: CALCIUM GLUCONATE IV SCH (16:00)
[2024-01-12] MEDS: [UNRECOGNIZED DRUG - OTHER] IV SCH (16:00)
[2024-01-12] MEDS: SODIUM CHLORIDE IV SCH (16:00)
[2024-01-12] MEDS: MAGNESIUM SULFATE IV SCH (16:00)
[2024-01-12] MEDS: oxyCODONE IR 5 MG TABLET PO PRN (18:12)
[2024-01-12] MEDS: POTASSIUM CHLORIDE 10 MEQ/100 ML BAG IV SCH (19:52)
[2024-01-13 06:47] LABS: ALT/SGPT 22 U/L (<40); AST/SGOT 19 U/L (<32); Albumin 3.1 gm/dL (3.2-5.2); Albumin/Globulin Ratio 1.2 (1.0-2.3); Alkaline Phosphatase 125 U/L (39-117); Bilirubin,Direct < 0.2 mg/dL (0-0.3); Bilirubin,Total < 0.2 mg/dL (0.1-1.0); Blood Urea Nitrogen 8 mg/dL (6-20); Calcium 8.8 mg/dL (8.6-10.4); Carbon Dioxide 26 mmol/L (22-30); Chloride 102 mmol/L (96-108); Globulin 2.5 gm/dL (2.2-3.7); Glomerular Filtration Rate 139; Glucose 100 mg/dL (70-105); Lactate Dehydrogenase 160 U/L (135-225); Phosphorous 3.4 mg/dL (2.5-4.5); Potassium 3.9 mmol/L (3.3-5.1); Sodium 139 mmol/L (133-145); Triglycerides 122 mg/dL (<150); Uric Acid 0.6 mg/dL (2.5-8.0)
== END 2024-01-13 11:56 | disposition left against medical advice (07) | DRG 314 ==
LOC: MEDSUR 12:45 → ED 12:45 → MEDSUR 18:00
PROVIDERS: ADMIT Family Medicine Adult Medicine; ATTEND Family Medicine Adult Medicine

== ENCOUNTER 2024-01-24 09:27 | Inpatient (IN) ==
[2024-01-24] MEDS: DEXTROSE 5%-1/2NS 1,000 ML IV SCH (11:37)
[2024-01-24] MEDS: HYDROmorphone 0.5 MG/0.5 ML SYRINGE IV PRN (11:40)
[2024-01-24 12:11] LABS: Basophils # (Auto) 0.02 K/mcL (0.00-0.30); Basophils % (Auto) 0.4 % (0.0-2.0); Eosinophils # (Auto) 0.06 K/mcL (0.00-0.70); Eosinophils % (Auto) 1.3 % (0.0-7.0); Hematocrit 31.4 % (34.1-44.9); Hemoglobin 9.4 g/dL (11.2-15.7); Lymphocytes # (Auto) 1.47 K/mcL (1.50-4.80); Lymphocytes % (Auto) 30.9 % (15.5-49.0); Mean Cell Volume 80.5 fL (80.0-100.0); Mean Corpuscular HGB Conc 29.9 g/dL (31.0-36.0); Mean Platelet Volume 8.4 fL (8.8-12.5); Monocytes % (Auto) 6.3 % (1.0-12.0); Neutrophils % (Auto) 60.9 % (38.0-78.0); Platelet Count 501 K/mcL (140-440); Red Cell Distribution Width 17.5 % (11.5-14.5); WBC 4.8 K/mcL (4.5-11.0)
[2024-01-24] MEDS: 0.9 % SODIUM CHLORIDE 10 ML SYRINGE IV SCH (12:12)
[2024-01-24 12:21] LABS: ALT/SGPT 6 U/L (<40); AST/SGOT 15 U/L (<32); Albumin 3.2 gm/dL (3.2-5.2); Albumin/Globulin Ratio 1.2 (1.0-2.3); Alkaline Phosphatase 134 U/L (39-117); Bilirubin,Direct < 0.2 mg/dL (0-0.3); Bilirubin,Total < 0.2 mg/dL (0.1-1.0); Blood Urea Nitrogen 12 mg/dL (6-20); C-Reactive Protein 3.86 mg/dL (0.03-0.80); Calcium 9.2 mg/dL (8.6-10.4); Carbon Dioxide 29 mmol/L (22-30); Chloride 95 mmol/L (96-108); Globulin 2.7 gm/dL (2.2-3.7); Glomerular Filtration Rate 111; Glucose 85 mg/dL (70-105); Lactate Dehydrogenase 154 U/L (135-225); Phosphorous 3.3 mg/dL (2.5-4.5); Potassium 3.9 mmol/L (3.3-5.1); Sodium 135 mmol/L (133-145); Triglycerides 127 mg/dL (<150); Uric Acid 2.7 mg/dL (2.5-8.0)
[2024-01-24] MEDS: CARISOPRODOL 350 MG TABLET PO PRN (13:37)
[2024-01-24] MEDS: LORazepam 2 MG/ML VIAL IV PRN (13:38)
[2024-01-24] MEDS ORDERED: TPN PER PHARMACY IV SCH (14:00)
[2024-01-24] MEDS: SODIUM CHLORIDE IV SCH (14:46)
[2024-01-24] MEDS: CALCIUM GLUCONATE IV SCH (14:46)
[2024-01-24] MEDS: [UNRECOGNIZED DRUG - OTHER] IV SCH (14:46)
[2024-01-24] MEDS: MAGNESIUM SULFATE IV SCH (14:46)
[2024-01-24] MEDS: GABAPENTIN 300 MG CAPSULE PO SCH (14:47)
[2024-01-24] MEDS: NYSTATIN 500,000 UNITS/5 ML ORAL.SUSP SSP SCH (14:47)
[2024-01-24] MEDS: FAT EMULSION 20% 250 ML IV SCH (17:33)
[2024-01-24] MEDS: NICOTINE 21 MG PATCH TOPICAL SCH ×2 (17:50)
[2024-01-24] MEDS: oxyCODONE IR 5 MG TABLET PO PRN (18:42)
[2024-01-24] MEDS: ONDANSETRON 4 MG/2 ML VIAL IV PRN (20:31)
[2024-01-24] MEDS: DULoxetine 30 MG CAPSULE PO SCH (20:31)
[2024-01-24] MEDS: clonazePAM 1 MG TABLET PO SCH (20:31)
[2024-01-24] MEDS: methylPREDNISolone SOD SUCC 125 MG/2 ML VIAL IV SCH (20:37)
[2024-01-24] MEDS: MAG HYDROX/AL HYDROX/SIMETH 30 ML ORAL.SUSP PO PRN (23:38)
[2024-01-24] MEDS: DEXTROSE 5%-NS 1,000 ML IV SCH (23:55)
[2024-01-25 07:16] LABS: ALT/SGPT 7 U/L (<40); AST/SGOT 16 U/L (<32); Albumin 3.1 gm/dL (3.2-5.2); Albumin/Globulin Ratio 1.1 (1.0-2.3); Alkaline Phosphatase 132 U/L (39-117); Bilirubin,Direct < 0.2 mg/dL (0-0.3); Bilirubin,Total < 0.2 mg/dL (0.1-1.0); Blood Urea Nitrogen 9 mg/dL (6-20); Calcium 8.9 mg/dL (8.6-10.4); Carbon Dioxide 26 mmol/L (22-30); Chloride 100 mmol/L (96-108); Globulin 2.7 gm/dL (2.2-3.7); Glomerular Filtration Rate 117; Glucose 152 mg/dL (70-105); Lactate Dehydrogenase 171 U/L (135-225); Phosphorous 2.8 mg/dL (2.5-4.5); Sodium 135 mmol/L (133-145); Triglycerides 89 mg/dL (<150)
[2024-01-25] MEDS: ENOXAPARIN 40 MG/0.4 ML SYRINGE SQ SCH (08:49)
[2024-01-25] MEDS ORDERED: BUTALB/ACETAMINOPHEN/CAFFEINE 1 TABLET PO PRN (14:01)
[2024-01-25] MEDS: CALCIUM GLUCONATE IV SCH (15:07)
[2024-01-25] MEDS: [UNRECOGNIZED DRUG - OTHER] IV SCH (15:07)
[2024-01-25] MEDS: MAGNESIUM SULFATE IV SCH (15:07)
[2024-01-25] MEDS: SODIUM CHLORIDE IV SCH (15:07)
[2024-01-25] MEDS: PROMETHAZINE 25 MG TABLET PO PRN (15:12)
[2024-01-25] MEDS: PANTOPRAZOLE 40 MG VIAL IV SCH (16:55)
[2024-01-25] MEDS: INSULIN LISPRO 1 UNIT/0.01 ML UNIT SQ SCH (18:39)
[2024-01-26 06:34] LABS: Basophils # (Auto) 0 K/mcL (0.00-0.30); Basophils % (Auto) 0 % (0.0-2.0); Eosinophils # (Auto) 0 K/mcL (0.00-0.70); Eosinophils % (Auto) 0 % (0.0-7.0); Hemoglobin 9.1 g/dL (11.2-15.7); Lymphocytes # (Auto) 0.77 K/mcL (1.50-4.80); Lymphocytes % (Auto) 15.2 % (15.5-49.0); Mean Cell Volume 78.9 fL (80.0-100.0); Mean Corpuscular HGB Conc 30.3 g/dL (31.0-36.0); Mean Platelet Volume 8.8 fL (8.8-12.5); Monocytes # (Auto) 0.19 K/mcL (0.10-0.90); Monocytes % (Auto) 3.7 % (1.0-12.0); Neutrophils % (Auto) 80.9 % (38.0-78.0); Platelet Count 429 K/mcL (140-440); WBC 5.1 K/mcL (4.5-11.0)
[2024-01-26 07:02] LABS: ALT/SGPT 7 U/L (<40); AST/SGOT 11 U/L (<32); Albumin/Globulin Ratio 1.3 (1.0-2.3); Alkaline Phosphatase 114 U/L (39-117); Bilirubin,Direct < 0.2 mg/dL (0-0.3); Bilirubin,Total < 0.2 mg/dL (0.1-1.0); Blood Urea Nitrogen 13 mg/dL (6-20); Calcium 8.6 mg/dL (8.6-10.4); Carbon Dioxide 25 mmol/L (22-30); Chloride 102 mmol/L (96-108); Globulin 2.3 gm/dL (2.2-3.7); Glomerular Filtration Rate 126; Glucose 142 mg/dL (70-105); Lactate Dehydrogenase 127 U/L (135-225); Phosphorous 3.9 mg/dL (2.5-4.5); Potassium 3.7 mmol/L (3.3-5.1); Sodium 137 mmol/L (133-145); Triglycerides 102 mg/dL (<150); Uric Acid 1.3 mg/dL (2.5-8.0)
[2024-01-26] MEDS: MAGNESIUM SULFATE IV SCH (15:33)
[2024-01-26] MEDS: SODIUM CHLORIDE IV SCH (15:33)
[2024-01-26] MEDS: [UNRECOGNIZED DRUG - OTHER] IV SCH (15:33)
[2024-01-26] MEDS: CALCIUM GLUCONATE IV SCH (15:33)
[2024-01-27 06:50] LABS: ALT/SGPT 31 U/L (<40); AST/SGOT 40 U/L (<32); Albumin/Globulin Ratio 1.2 (1.0-2.3); Alkaline Phosphatase 125 U/L (39-117); Bilirubin,Direct < 0.2 mg/dL (0-0.3); Bilirubin,Total < 0.2 mg/dL (0.1-1.0); Blood Urea Nitrogen 14 mg/dL (6-20); Calcium 8.6 mg/dL (8.6-10.4); Carbon Dioxide 24 mmol/L (22-30); Chloride 102 mmol/L (96-108); Globulin 2.5 gm/dL (2.2-3.7); Glomerular Filtration Rate 139; Glucose 135 mg/dL (70-105); Lactate Dehydrogenase 138 U/L (135-225); Phosphorous 3.5 mg/dL (2.5-4.5); Potassium 3.4 mmol/L (3.3-5.1); Sodium 136 mmol/L (133-145); Triglycerides 256 mg/dL (<150)
[2024-01-27] MEDS: MAGNESIUM SULFATE IV SCH (15:37)
[2024-01-27] MEDS: CALCIUM GLUCONATE IV SCH (15:37)
[2024-01-27] MEDS: [UNRECOGNIZED DRUG - OTHER] IV SCH (15:37)
[2024-01-27] MEDS: SODIUM CHLORIDE IV SCH (15:37)
[2024-01-28 06:29] LABS: ALT/SGPT 52 U/L (<40); AST/SGOT 51 U/L (<32); Albumin 3.1 gm/dL (3.2-5.2); Albumin/Globulin Ratio 1.2 (1.0-2.3); Alkaline Phosphatase 127 U/L (39-117); Bilirubin,Direct < 0.2 mg/dL (0-0.3); Bilirubin,Total < 0.2 mg/dL (0.1-1.0); Blood Urea Nitrogen 16 mg/dL (6-20); Calcium 8.7 mg/dL (8.6-10.4); Carbon Dioxide 22 mmol/L (22-30); Chloride 104 mmol/L (96-108); Globulin 2.5 gm/dL (2.2-3.7); Glomerular Filtration Rate 126; Glucose 137 mg/dL (70-105); Lactate Dehydrogenase 149 U/L (135-225); Phosphorous 3.4 mg/dL (2.5-4.5); Potassium 4.2 mmol/L (3.3-5.1); Sodium 137 mmol/L (133-145); Triglycerides 104 mg/dL (<150)
[2024-01-28] MEDS ORDERED: ONDANSETRON 4 MG/2 ML VIAL ONE (07:18)
[2024-01-28] MEDS ORDERED: PROPOFOL 200 MG/20 ML VIAL IV ONE (07:18)
[2024-01-28] MEDS ORDERED: GLYCOPYRROLATE 0.2 MG/ML VIAL IV ONE (07:18)
[2024-01-28] MEDS ORDERED: IPRATROPIUM/ALBUTEROL 3 ML AMPUL.NEB NEB PRN (07:30)
[2024-01-28] MEDS ORDERED: SCOPOLAMINE 1 PATCH PATCH TOPICAL PRN (07:30)
[2024-01-28 10:09] LABS: Prealbumin 25.2 mg/dL (20.0-40.0)
[2024-01-28] MEDS: KETAMINE 50 MG/ML ML IM ONE (10:52)
[2024-01-28] MEDS: CALCIUM GLUCONATE IV SCH (15:25)
[2024-01-28] MEDS: SODIUM CHLORIDE IV SCH (15:25)
[2024-01-28] MEDS: MAGNESIUM SULFATE IV SCH (15:25)
[2024-01-28] MEDS: [UNRECOGNIZED DRUG - OTHER] IV SCH (15:25)
[2024-01-29 06:45] LABS: ALT/SGPT 128 U/L (<40); AST/SGOT 95 U/L (<32); Albumin 3.2 gm/dL (3.2-5.2); Albumin/Globulin Ratio 1.4 (1.0-2.3); Alkaline Phosphatase 132 U/L (39-117); Bilirubin,Direct < 0.2 mg/dL (0-0.3); Bilirubin,Total < 0.2 mg/dL (0.1-1.0); Blood Urea Nitrogen 18 mg/dL (6-20); Calcium 8.7 mg/dL (8.6-10.4); Carbon Dioxide 25 mmol/L (22-30); Chloride 102 mmol/L (96-108); Globulin 2.3 gm/dL (2.2-3.7); Glomerular Filtration Rate 139; Glucose 100 mg/dL (70-105); Lactate Dehydrogenase 149 U/L (135-225); Phosphorous 3.7 mg/dL (2.5-4.5); Potassium 3.9 mmol/L (3.3-5.1); Sodium 137 mmol/L (133-145); Triglycerides 213 mg/dL (<150); Uric Acid 0.8 mg/dL (2.5-8.0)
[2024-01-29 07:34] LABS: Prealbumin 27.1 mg/dL (20.0-40.0)
[2024-01-29] MEDS: MAGNESIUM HYDROXIDE 30 ML ORAL.SUSP PO PRN (08:20)
[2024-01-30 08:00] LABS: Prealbumin 30.9 mg/dL (20.0-40.0)
[2024-01-30 08:28] LABS: ALT/SGPT 102 U/L (<40); AST/SGOT 42 U/L (<32); Albumin 3.1 gm/dL (3.2-5.2); Albumin/Globulin Ratio 1.2 (1.0-2.3); Alkaline Phosphatase 120 U/L (39-117); Bilirubin,Direct < 0.2 mg/dL (0-0.3); Bilirubin,Total < 0.2 mg/dL (0.1-1.0); Blood Urea Nitrogen 20 mg/dL (6-20); Calcium 8.9 mg/dL (8.6-10.4); Carbon Dioxide 25 mmol/L (22-30); Chloride 101 mmol/L (96-108); Globulin 2.5 gm/dL (2.2-3.7); Glomerular Filtration Rate 126; Glucose 112 mg/dL (70-105); Lactate Dehydrogenase 137 U/L (135-225); Potassium 4.2 mmol/L (3.3-5.1); Sodium 135 mmol/L (133-145); Triglycerides 96 mg/dL (<150); Uric Acid 0.9 mg/dL (2.5-8.0)
== END 2024-01-30 11:55 | disposition home or self-care (01) | DRG 394 ==
LOC: MEDSUR 09:54
PROVIDERS: ADMIT Family Medicine Adult Medicine; ATTEND Family Medicine Adult Medicine

== ENCOUNTER 2024-02-04 13:34 | Inpatient (IN) ==
[2024-02-04] MEDS ORDERED: IOPAMIDOL 100 ML BOTTLE IV ONE (13:35)
[2024-02-04] MEDS: HYDROmorphone 1 MG/ML SYRINGE IV ONE ×2 (14:10→16:20)
[2024-02-04] MEDS: 0.9 % SODIUM CHLORIDE 1,000 ML IV ONE (14:10)
[2024-02-04 14:59] LABS: Basophils # (Auto) 0.01 K/mcL (0.00-0.30); Basophils % (Auto) 0.1 % (0.0-2.0); Eosinophils # (Auto) 0.03 K/mcL (0.00-0.70); Eosinophils % (Auto) 0.3 % (0.0-7.0); Hematocrit 29.7 % (34.1-44.9); Hemoglobin 8.9 g/dL (11.2-15.7); Lymphocytes # (Auto) 2.12 K/mcL (1.50-4.80); Lymphocytes % (Auto) 21.1 % (15.5-49.0); Mean Cell Volume 79.2 fL (80.0-100.0); Mean Platelet Volume 8.8 fL (8.8-12.5); Monocytes # (Auto) 0.45 K/mcL (0.10-0.90); Monocytes % (Auto) 4.5 % (1.0-12.0); Neutrophils % (Auto) 73.7 % (38.0-78.0); Platelet Count 388 K/mcL (140-440); RBC 3.75 M/mcL (3.59-5.38); Red Cell Distribution Width 16.7 % (11.5-14.5)
[2024-02-04 15:10] LABS: ALT/SGPT 40 U/L (<40); AST/SGOT 28 U/L (<32); Albumin 3.2 gm/dL (3.2-5.2); Albumin/Globulin Ratio 1.5 (1.0-2.3); Alkaline Phosphatase 113 U/L (39-117); Bilirubin,Total < 0.2 mg/dL (0.1-1.0); Blood Urea Nitrogen 20 mg/dL (6-20); Calcium 8.2 mg/dL (8.6-10.4); Carbon Dioxide 24 mmol/L (22-30); Chloride 98 mmol/L (96-108); Globulin 2.2 gm/dL (2.2-3.7); Glomerular Filtration Rate 126; Glucose 84 mg/dL (70-105); Potassium 3.5 mmol/L (3.3-5.1); Sodium 133 mmol/L (133-145)
[2024-02-04 15:10] LABS: INR 0.9 (0.9-1.1)
[2024-02-04] MEDS: VANCOMYCIN PER PHARMACY IV ONE ×2 (17:06→19:21)
[2024-02-04] MEDS: VANCOMYCIN 750 MG in 0.9 % SODIUM CHLORIDE 250 ML IV SCH (17:12)
[2024-02-04] MEDS ORDERED: MAG HYDROX/AL HYDROX/SIMETH 30 ML ORAL.SUSP PO PRN (17:35)
[2024-02-04] MEDS ORDERED: PROMETHAZINE 25 MG TABLET PO PRN (17:35)
[2024-02-04] MEDS: oxyCODONE IR 5 MG TABLET PO PRN (18:18)
[2024-02-04 18:22] LABS: Basophils # (Auto) 0.02 K/mcL (0.00-0.30); Basophils % (Auto) 0.2 % (0.0-2.0); Eosinophils # (Auto) 0.07 K/mcL (0.00-0.70); Eosinophils % (Auto) 0.7 % (0.0-7.0); Hematocrit 31.7 % (34.1-44.9); Hemoglobin 8.9 g/dL (11.2-15.7); Lymphocytes # (Auto) 2.71 K/mcL (1.50-4.80); Lymphocytes % (Auto) 28.7 % (15.5-49.0); Mean Cell Volume 85.2 fL (80.0-100.0); Mean Corpuscular HGB Conc 28.1 g/dL (31.0-36.0); Mean Platelet Volume 8.8 fL (8.8-12.5); Monocytes # (Auto) 0.42 K/mcL (0.10-0.90); Monocytes % (Auto) 4.5 % (1.0-12.0); Neutrophils % (Auto) 65.7 % (38.0-78.0); Platelet Count 359 K/mcL (140-440); RBC 3.72 M/mcL (3.59-5.38); WBC 9.4 K/mcL (4.5-11.0)
[2024-02-04] MEDS: DEXTROSE 5%-NS 1,000 ML IV SCH (19:55)
[2024-02-04] MEDS: ACETAMINOPHEN 1,000 MG/100 ML BAG IV SCH (19:56)
[2024-02-04 20:34] LABS: Appearance,Urine CLEAR (Clear); Bilirubin,Urine Negative (Negative); Color,Urine YELLOW; Glucose,Urine (UA) Negative (Negative); Ketones,Urine Negative (Negative); Leukocyte Esterase,Urine Negative /uL (Negative); Mucus,Urine FEW /hpf; Nitrate,Urine Negative (Negative); Protein,Urine Negative (Negative); Specific Gravity,Urine > 1.060 (1.000-1.035); Urine Blood Negative (Negative); Urine RBC < 1 /hpf (0-3); Urine Squamous Epithelial Cell < 1 /hpf (0-4); Urine WBC 1 /hpf (0-4); Urobilinogen,Urine Negative
[2024-02-04 20:36] LABS: Amphetamine Screen,Urine None detected; Barbiturate Screen,Urine None detected; Benzodiazepines Screen,Urine Suspect positive; Cannabinoid Screen,Urine None detected; Cocaine Screen,Urine None detected; Fentanyl, Urine Screen None Detected; Opiate Screen,Urine None detected; Oxycodone, Urine Screen Suspect Positive; Phencyclidine Screen,Urine None detected
[2024-02-04] MEDS: clonazePAM 1 MG TABLET PO SCH (21:47)
[2024-02-04] MEDS: diphenhydrAMINE 50 MG/ML VIAL IV SCH (21:47)
[2024-02-04] MEDS: DULoxetine 30 MG CAPSULE PO SCH (21:47)
[2024-02-04] MEDS: PYRIDOSTIGMINE 60 MG TABLET PO SCH (21:49)
[2024-02-04] MEDS: GABAPENTIN 300 MG CAPSULE PO SCH (21:49)
[2024-02-04] MEDS: METHYLNALTREXONE BROMIDE 12 MG/0.6 ML SYRINGE SQ SCH (21:50)
[2024-02-04] MEDS: HYDROmorphone 0.5 MG/0.5 ML SYRINGE IV PRN (21:51)
[2024-02-04] MEDS: NYSTATIN 500,000 UNITS/5 ML ORAL.SUSP SSW SCH (21:57)
[2024-02-05] MEDS: LORazepam 2 MG/ML VIAL IV PRN (04:38)
[2024-02-05 05:52] LABS: Basophils # (Auto) 0.02 K/mcL (0.00-0.30); Basophils % (Auto) 0.2 % (0.0-2.0); Eosinophils # (Auto) 0.07 K/mcL (0.00-0.70); Eosinophils % (Auto) 0.7 % (0.0-7.0); Hematocrit 29.2 % (34.1-44.9); Hemoglobin 8.5 g/dL (11.2-15.7); Lymphocytes # (Auto) 2.04 K/mcL (1.50-4.80); Lymphocytes % (Auto) 21.6 % (15.5-49.0); Mean Cell Volume 81.8 fL (80.0-100.0); Mean Corpuscular HGB Conc 29.1 g/dL (31.0-36.0); Monocytes # (Auto) 0.39 K/mcL (0.10-0.90); Monocytes % (Auto) 4.1 % (1.0-12.0); Neutrophils % (Auto) 73.2 % (38.0-78.0); Platelet Count 368 K/mcL (140-440); RBC 3.57 M/mcL (3.59-5.38); WBC 9.4 K/mcL (4.5-11.0)
[2024-02-05 06:09] LABS: ALT/SGPT 32 U/L (<40); AST/SGOT 23 U/L (<32); Albumin 2.9 gm/dL (3.2-5.2); Albumin/Globulin Ratio 1.4 (1.0-2.3); Alkaline Phosphatase 105 U/L (39-117); Bilirubin,Direct < 0.2 mg/dL (0-0.3); Bilirubin,Total < 0.2 mg/dL (0.1-1.0); Blood Urea Nitrogen 9 mg/dL (6-20); Calcium 7.9 mg/dL (8.6-10.4); Carbon Dioxide 24 mmol/L (22-30); Chloride 106 mmol/L (96-108); Globulin 2.1 gm/dL (2.2-3.7); Glomerular Filtration Rate 139; Glucose 87 mg/dL (70-105); Lactate Dehydrogenase 169 U/L (135-225); Phosphorous 2.7 mg/dL (2.5-4.5); Potassium 3.2 mmol/L (3.3-5.1); Sodium 139 mmol/L (133-145); Triglycerides 129 mg/dL (<150); Uric Acid 2.1 mg/dL (2.5-8.0)
[2024-02-05] MEDS: PANTOPRAZOLE 40 MG VIAL IV SCH (07:10)
[2024-02-05] MEDS ORDERED: VANCOMYCIN PER PHARMACY IV SCH (08:45)
[2024-02-05] MEDS: NICOTINE 21 MG PATCH TOPICAL SCH (09:27)
[2024-02-05] MEDS: ENOXAPARIN 30 MG/0.3 ML SYRINGE SQ SCH (09:28)
[2024-02-05 10:02] LABS: Vancomycin,Random < 4.0 ug/mL
[2024-02-05] MEDS: BUDESONIDE 3 MG CAP.XL.24H PO SCH (10:44)
[2024-02-05] MEDS: VANCOMYCIN 1,000 MG in 0.9 % SODIUM CHLORIDE 250 ML IV SCH (12:19)
[2024-02-05] MEDS: ONDANSETRON 4 MG/2 ML VIAL IV PRN (13:06)
[2024-02-05] MEDS ORDERED: DIATRIZOATE MEGLU/DIATRIZO SOD 120ML BOTTLE PO ONE (14:03)
[2024-02-05] MEDS ORDERED: VANCOMYCIN 750 MG in 0.9 % SODIUM CHLORIDE 250 ML IV SCH (15:00)
[2024-02-05] MEDS: methylPREDNISolone SOD SUCC 125 MG/2 ML VIAL IV SCH (20:30)
[2024-02-05] MEDS: VANCOMYCIN 750 MG in 0.9 % SODIUM CHLORIDE 250 ML IV SCH (23:26)
[2024-02-06 05:52] LABS: Basophils # (Auto) 0.01 K/mcL (0.00-0.30); Basophils % (Auto) 0.2 % (0.0-2.0); Eosinophils # (Auto) 0 K/mcL (0.00-0.70); Eosinophils % (Auto) 0 % (0.0-7.0); Hematocrit 28.3 % (34.1-44.9); Hemoglobin 8.2 g/dL (11.2-15.7); Lymphocytes # (Auto) 0.83 K/mcL (1.50-4.80); Lymphocytes % (Auto) 17.4 % (15.5-49.0); Mean Cell Volume 81.1 fL (80.0-100.0); Mean Platelet Volume 8.7 fL (8.8-12.5); Monocytes # (Auto) 0.03 K/mcL (0.10-0.90); Monocytes % (Auto) 0.6 % (1.0-12.0); Neutrophils % (Auto) 81.6 % (38.0-78.0); Platelet Count 358 K/mcL (140-440); RBC 3.49 M/mcL (3.59-5.38); Red Cell Distribution Width 16.7 % (11.5-14.5); WBC 4.8 K/mcL (4.5-11.0)
[2024-02-06 06:21] LABS: ALT/SGPT 30 U/L (<40); AST/SGOT 20 U/L (<32); Albumin 2.9 gm/dL (3.2-5.2); Albumin/Globulin Ratio 1.5 (1.0-2.3); Alkaline Phosphatase 105 U/L (39-117); Bilirubin,Direct < 0.2 mg/dL (0-0.3); Bilirubin,Total < 0.2 mg/dL (0.1-1.0); Blood Urea Nitrogen 6 mg/dL (6-20); Calcium 7.7 mg/dL (8.6-10.4); Carbon Dioxide 21 mmol/L (22-30); Chloride 106 mmol/L (96-108); Glomerular Filtration Rate 139; Glucose 128 mg/dL (70-105); Lactate Dehydrogenase 154 U/L (135-225); Phosphorous 2.7 mg/dL (2.5-4.5); Potassium 3.4 mmol/L (3.3-5.1); Sodium 136 mmol/L (133-145); Triglycerides 126 mg/dL (<150); Uric Acid 1.4 mg/dL (2.5-8.0)
[2024-02-06] MEDS: POTASSIUM CHLORIDE 20 MEQ TABLET PO SCH (07:31)
[2024-02-06] MEDS: ceFAZolin 1 GM VIAL IV SCH (09:06)
[2024-02-06] MEDS: 0.9 % SODIUM CHLORIDE 250 ML IV SCH (17:04)
[2024-02-11 15:09] LABS: Alprazolam, Urine Negative (Cutoff=100); Clonazepam Confirm, Urine 1632 ng/mL (Cutoff=100); Clonazepam, Urine Positive; Flurazepam, Urine Negative (Cutoff=100); Lorazepam, Urine Negative (Cutoff=100); Midazolam, Urine Negative (Cutoff=100); Nordiazepam, Urine Negative (Cutoff=100); Oxazepam, Urine Negative (Cutoff=100); Temazepam, Urine Negative (Cutoff=100); Triazolam, Urine Negative (Cutoff=100)
== END 2024-02-06 18:20 | disposition left against medical advice (07) | DRG 871 ==
LOC: ED 13:34 → MEDSUR 18:59
PROVIDERS: ADMIT Family Medicine Adult Medicine; ATTEND Family Medicine Adult Medicine